=== PATIENT | female | born 1985 | race Caucasian/White ===

== ENCOUNTER 2022-06-15 14:42 | Emergency (ER) | payer SELFPAY ==
[2022-06-15 15:01] VITALS: BP 117/86; PULSE 82; RESP 16; TEMP 36.8; O2SAT 100
--- NOTE | 2022-06-15 15:08 | XR_ITS ---
WS: [id number] XR lumbar spine 2-3V* [id number] REASON FOR EXAM: back pain FINDINGS: Mild rotatory scoliosis convex left. Mild straightening of the normal lordosis of the lumbar spine. No focal vertebral body abnormality. Intervertebral disc spaces are relatively well-preserved. Minimal vertebral osteophyte formation L3-L5. No significant listhesis. No urinary tract calculi. XR/XR lumbar spine 2-3V* [id number] IMPRESSION: Mild changes of degenerative spondylosis. No urinary tract calculi.
--- NOTE | 2022-06-15 15:10 | ED_ITS ---
HPI - Back Pain/Injury General: Chief Complaint: Back Pain/Injury Stated Complaint: lower back pain Time Seen by Provider: 06/15/22 15:05 Source: patient Mode of arrival: ambulatory Limitations: no limitations History of Present Illness: 36-year-old female who states she been having low back pain for the last 3 to 4 days. States she been having sharp pain seemingly worse with standing and walking states improved with rest. She denies any dysuria states she has some slight radiation down her right leg denies any bowel or bladder incontinence denies any fever she rates her pain a 3 out of 10 curre ntly while sitting. Associated symptoms: Deny abdominal pain, chills, dysuria, fever(s), nausea or vomiting Review of Systems Const: Denies: fever(s), chills, body aches or change in appetite Eyes: Denies: blurry vision or eye discomfort ENMT: Denies: throat pain or dental pain Card: Denies: chest pain Resp: Denies: dyspnea GI: Denies: abdominal pain, nausea, vomiting or diarrhea : Denies: dysuria Musc: Reports: back pain Skin/Breast: Denies: rash Neuro: Denies: headache(s) Psych: Denies: depression Lake/Lymph: Denies: easy bruising All/Imm: Denies: urticaria PFSH ED PFSH: Medical History (Updated 06/15/22 @ 15:55 by Elly Gil MD) No pertinent past medical history Social History (Updated 06/15/22 @ 15:12 by Elly Gil MD) Substance/Drug Use: unknown Physical Exam Const: COMMON NORMALS: no acute distress, patient oriented x3 and healthy appearing HENMT: COMMON NORMALS: normocephalic and atraumatic HEAD & SCALP: normocephalic and atraumatic Eye: COMMON NORMALS: Equal, round and reactive pupils present and EOMs intact bilaterally PUPIL: Yes Equal, round and reactive pupils present Neck/C-Spine: COMMON NORMALS: full ROM and supple Chest: COMMONS NORMALS: normal inspection of the chest and normal palpation of entire chest wall Resp: COMMON NORMALS: normal respiratory effort, No retractions, No use of accessory muscles and clear to auscultation bilaterally AUSCULTATION: clear to auscultation bilaterally Cardio: COMMON NORMALS: regular rate, regular rhythm and No murmurs present (Cardio) RATE: regular rate RHYTHM: regular rhythm GI: COMMON NORMALS: Normal to inspection, nondistended, normoactive bowel sounds present, Soft to palpation, non-tender and no masses PALPATION: Yes Soft to palpation Back/Pelvis: OTHER: Paraspinal lumbar tenderness no midline tenderness. No saddle anesthesia no weakness Extremity: COMMON NORMALS: normal to inspection and full ROM Neuro: COMMON NORMALS: patient oriented x3, moves all extremities and no focal motor deficits Psych: COMMON NORMALS: mental status grossly normal, Normal thought process present and cooperative THOUGHT PROCESS: Normal thought process present Skin: COMMON NORMALS: no rashes or lesions noted and no wounds GENERAL SKIN EXAM: no rashes or lesions noted Course Vital Signs: Vital signs: Vital Signs Temperature 98.2 F 06/15/22 15:18 Pulse Rate 82 06/15/22 15:18 Respiratory Rate 16 06/15/22 15:18 Blood Pressure 117/86 06/15/22 15:18 Pulse Oximetry 100 06/15/22 15:18 Oxygen Delivery Me thod 06/15/22 15:18 MDM - Back Pain/Injury Medical Decision Making Patient presents here with back pain likely muscular in nature she has no signs of UTI x-ray is normal patient feels improved here she is stable for discharge we will place her on Naprosyn Robaxin she is to follow-up with her PCP and return if worsening she understands agrees to plan. Labs Radiology Impressions Lumbar Spine X-Ray 06/15/22 15:08 IMPRESSION: Mild changes of degenerative spondylosis. No urinary tract calculi. Laboratory Results Urine Color Yellow (Yellow) 06/15/22 15:15 Urine Appearance Clear (CLEAR) 06/15/22 15:15 Urine pH 6 (5-7) 06/15/22 15:15 Ur Specific [place] 1.005 (1.005-1.030) 06/15/22 15:15 Urine Protein Neg (Negative) 06/15/22 15:15 Urine Glucose (UA) Norm (Normal) 06/15/22 15:15 Urine Ketones Negative (Negative) 06/15/22 15:15 Urine Blood 2+ (Negative) H 06/15/22 15:15 Urine Nitrate Negative (Negative) 06/15/22 15:15 Urine Bilirubin Neg (Negative) 06/15/22 15:15 Urine Urobilinogen Norm mg/dL (Negative) 06/15/22 15:15 Ur Leukocyte Esterase Negative (Negative) 06/15/22 15:15 Urine RBC 0-4 /hpf (0-2) H 06/15/22 15:15 Urine WBC None /hpf (0-5) 06/15/22 15:15 Ur Squamous Epith Cells 5-10 /hpf (0-5) H 06/15/22 15:15 Amorphous Sediment Not Reportable 06/15/22 15:15 Urine Bacteria None /hpf (NONE) 06/15/22 15:15 Discharge Plan Discharge Patient Disposition: Home Clinical Impression: Low back pain Qualifiers: Chronicity: acute Back pain laterality: bilateral Sciatica presence: without sciatica Qualified Code(s): M54.50 - Low back pain, unspecified Prescriptions: New methocarbamol 750 mg tablet 750 mg PO Q6H PRN (Reason: spasms) Qty: 20 0RF Naprosyn 500 mg tablet 500 mg PO BID PRN (Reason: pain) Qty: 20 0RF Discharge Orders: Discharge ED (Routine); Ordered 06/15/22 Ordered By: Elly Gil Discharge Diet: Advance as tolerated Discharge Activity: Resume usual activity Patient Instructions: Acute Low Back Pain (ED) Coding Level of Care Code ED Software Licensing Executive for Joey Fwd Exam Comprehensive
[2022-06-15 15:18] VITALS: BP 117/86; PULSE 82; RESP 16; TEMP 36.8; O2SAT 100
[2022-06-15] MEDS: dexamethasone 10 mg/mL INJ IM (15:30)
[2022-06-15] MEDS: ketorolac 60 mg/2 mL INJ IM (15:31)
[2022-06-15 15:52] LABS: Specific Gravity, Urine 1.005 (1.005-1.030); Urine Appearance Clear (CLEAR); Urine Color Yellow (Yellow); pH Urine 6 (5-7)
[2022-06-15 15:53] LABS: Add Urine Culture? No; Add Urine Microscopic? YES; Bilirubin Urine Neg (Negative); Blood Urine 2+ (Negative); Glucose Urine UA Norm (Normal); Ketones Urine Negative (Negative); Leukocyte Esterase Urine Negative (Negative); Nitrate Urine Negative (Negative); Protein Urine Neg (Negative); RBC Urine 0-4 /hpf (0-2); Urobilinogen Urine Norm (Negative)
== END 2022-06-15 16:00 | disposition home or self-care (01) ==
PROVIDERS: Emergency Provider Emergency Medicine
DX: M54.50 Low back pain, unspecified (principal)
CPT/HCPCS: 72100; 81001; 96372; 99284; J1100; J1885

== ENCOUNTER 2022-09-07 19:05 | Emergency (ER) | payer MEDICAID, SELFPAY ==
--- NOTE | 2022-09-07 19:17 | USR_ITS ---
PROCEDURE INFORMATION: Exam: US Duplex Right Lower Extremity Veins, Limited Exam date and time: 09/07/2022 7:32 PM Age: 37 years old Clinical indication: Leg, upper and leg, lower; Patient HX: Chronic right posterior calf pain x 2 months, which is shooting pain up into the thigh. No history of dvt per patient. ; Additional info: Leg swelling TECHNIQUE: Imaging protocol: Real-time Duplex ultrasound of the Right Lower Extremity with 2-D cohen scale, color Doppler flow and spectral waveform analysis with image documentation. Limited exam was focused on the right lower extremity veins. COMPARISON: No relevant prior studies available. FINDINGS: Right deep veins: Unremarkable. The common femoral, femoral, proximal profunda femoral and popliteal veins are patent without thrombus. Normal Doppler waveforms. Normal compressibility and/or augmentation response. Right superficial veins: Unremarkable. Saphenofemoral junction is patent without thrombus. Soft tissues: Unremarkable. US/[place] [id number] IMPRESSION: No evidence of deep vein thrombosis.
[2022-09-07 19:30] VITALS: BP 109/74; PULSE 112; RESP 18; TEMP 36.7; O2SAT 98; BMI 24.7
[2022-09-07 20:57] LABS: Basophils # 0.1 10^3/uL (0.0-0.1); Basophils % 0.5 %; Eosinophils # 0.1 10^3/uL (0.0-0.8); Eosinophils % 1.4 %; Hematocrit 38.8 % (37.0-47.0); Hemoglobin 12.3 g/dL (11.5-15.3); Lymphocytes # 2.9 10^3/uL (0.8-4.8); Lymphocytes % 29.1 %; Mean Corpuscular HGB Conc 31.7 g/dL (30.0-36.0); Mean Corpuscular Hemoglobin 30.8 pg (28.0-34.0); Mean Corpuscular Volume 97.2 fl (81-99); Mean Platelet Volume 10.7 fL (7.4-10.4); Monocytes # 0.9 10^3/uL (0.2-0.9); Monocytes % 8.7 %; Neutrophils # 5.88 10^3/uL (1.8-7.7); Nucleated Red Blood Cells % 0 %; Platelet Count 195 10^3/cmm (130-400); Red Blood Count 3.99 10^6/uL (4.1-5.3); Red Cell Distribution Width 13.2 % (12.1-15.1); White Blood Count 9.8 10^3/uL (4.0-10.0)
[2022-09-07] MEDS: cyclobenzaprine 10 mg Tablet PO (21:32)
[2022-09-07] MEDS: ketorolac 60 mg/2 mL INJ IM (21:32)
--- NOTE | 2022-09-07 21:32 | W.ED.EXTPRO ---
HPI - Extremity Problem General: Chief complaint: Extremity Injury, Lower Stated complaint: Right leg Swollen sent by PCP Time Seen by Provider: 09/07/22 20:47 History of Present Illness: Patient is in today for concerns of right lower extremity pain. She reports it starts mid calf and is goes all the way up into her right buttocks. She reports has been ongoing for couple of months but definitely worse over the past 2 weeks. She reports that her primary care provider is concerned about a blood clot and sent her to the emergency room today. She denies any injury to the area. She states that it is worse with prolonged standing or sitting.She denies any fever, chills. She denies any possibility of stating that she has already had a tubal ligation. She denies any shortness of breath or chest pain. Associated symptoms: Deny chest pain or fever(s) Review of Systems Const: Denies: fever(s) or chills Card: Denies: chest pain or palpitations Resp: Denies: dyspnea Musc: Reports: other (Right lower extremity pain from buttocks to mid calf) [facility] ED PFSH: Medical History No pertinent past medical history Female Reproductive History: Date of last menstrual period: 09/06/22 Physical Exam Const: COMMON NORMALS: no acute distress, patient oriented x3 and alert Resp: COMMON NORMALS: normal respiratory effort and No use of accessory muscles Extremity: NARRATIVE EXTREMITY EXAM: Patient reports right lower extremity pain. Steady gait is noted. There is no obvious swelling, redness, soft tissue deformity to the right lower extremity. There is tenderness to palpation to the calf the posterior thigh and the buttocks. Palpation in the sciatic region of the right buttocks reproduces pain complaint and worsens the pain all the way down the leg. Patient has full range of motion. Homans' sign is positive. Pedal pulses palpable. Extremity is warm and dry. Neuro: COMMON NORMALS: patient oriented x3 SENSORIUM/ORIENTATION: Yes alert Course Vital Signs: Vital signs: Vital Signs Temperature 98.1 F 09/07/22 19:30 Pulse Rate 112 H 09/07/22 19:30 Respiratory Rate 18 09/07/22 19:30 Blood Pressure 109/74 09/07/22 19:30 Pulse Oximetry 98 09/07/22 19:30 Oxygen Delivery Me thod 09/07/22 19:30 MDM - Extremity (Nontraumatic) Medical Decision Making Patient in today to be evaluated for possible DVT right lower extremity pain ongoing for a couple of months worsening over the past 2 weeks. Patient reports a burning type pain radiating from her right buttocks all the way down to her mid calf. Differentials include sciatica, radiculopathy lumbar, DVT. Ultrasound lower extremity negative for evidence of DVT. Physical exam is consistent with sciatica. Palpation of the sciatic region and right buttocks reproduces pain complaint. Patient is in no acute distress, denies any saddle anesthesia, denies any loss of bowel or bladder control, strength is equal bilateral lower extremities, white blood cell count does not indicate major infection. We will treat patient conservatively for sciatica. Toradol and Flexeril provided in ER tonight. Send patient home with outpatient prescription for Flexeril. Educated patient about possible benefits and side effects of that medication. Discussed conservative treatments for sciatica at home including warm moist heat, gentle stretches. Follow-up with primary care provider. Return to the ER as needed for new or worsening symptoms. Lab Data : 09/07/22 20:53 Radiology Impressions Venous Duplex 09/07/22 19:17 IMPRESSION: No evidence of deep vein thrombosis. Laboratory Results WBC 9.8 10^3/uL (4.0-10.0) 09/07/22 20:53 RBC 3.99 10^6/uL (4.1-5.3) L 09/07/22 20:53 Hgb 12.3 g/dL (11.5-15.3) 09/07/22 20:53 Hct 38.8 % (37.0-47.0) 09/07/22 20:53 MCV 97.2 fl (81-99) 09/07/22 20:53 MCH 30.8 pg (28.0-34.0) 09/07/22 20:53 MCHC 31.7 g/dL (30.0-36.0) 09/07/22 20:53 RDW 13.2 % (12.1-15.1) 09/07/22 20:53 Plt Count 195 10^3/cmm (130-400) 09/07/22 20:53 MPV 10.7 fL (7.4-10.4) H 09/07/22 20:53 Neut % (Auto) 60.0 % 09/07/22 20:53 Lymph % (Auto) 29.1 % 09/07/22 20:53 [place] % (Auto) 8.7 % 09/07/22 20:53 Eos % (Auto) 1.4 % 09/07/22 20:53 Baso % (Auto) 0.5 % 09/07/22 20:53 Neut # (Auto) 5.88 10^3/uL (1.8-7.7) 09/07/22 20:53 Lymph # (Auto) 2.9 10^3/uL (0.8-4.8) 09/07/22 20:53 [place] # (Auto) 0.9 10^3/uL (0.2-0.9) 09/07/22 20:53 Eos # (Auto) 0.1 10^3/uL (0.0-0.8) 09/07/22 20:53 Baso # (Auto) 0.1 10^3/uL (0.0-0.1) 09/07/22 20:53 Nucleated RBC % (auto) 0 % 09/07/22 20:53 Nucleated RBCs # 0.0 /100WBC 09/07/22 20:53 Discharge Plan Discharge Patient Disposition: Home Clinical Impression: Sciatica of right side Condition: Stable Prescriptions: New cyclobenzaprine 10 mg tablet 10 mg PO TID PRN (Reason: muscle spasm) Qty: 10 0RF No Action sulfamethoxazole-trimethoprim [Bactrim DS] 800-160 mg tablet 1 tab PO Q12H 7 Days Qty: 14 0RF Discharge Orders: Discharge ED (Routine); Ordered 09/07/22 Ordered By: Nishi Trinidad Discharge Diet: Usual diet Discharge Activity: Increase activity as tolerated Patient Instructions: Cyclobenzaprine (By mouth) (Flexeril, Amrix, Fexmid, FusePaq Tabradol), Sciatica (ED) Activity Restrictions/Additional Instructions: Take medications as prescribed. You already received a dose of Flexeril tonight. Do not take any other medications or substances that make you sleepy while taking the muscle relaxant. Do not drive after taking Flexeril muscle relaxant. Alternate warm moist compresses and ice on the area. Gentle stretching. Follow-up with primary care provider. Return to the ER as needed for any new or worsening symptom including but not limited to increasing pain, numbness in the groin, loss of bowel or bladder control, fever, weakness. Coding Level of Care Code ED Family Assessment Worker for Joey Gay
== END 2022-09-07 21:39 | disposition home or self-care (01) ==
PROVIDERS: Emergency Medicine; Emergency Provider Nurse Practitioner Family; PCP Nurse Practitioner
DX: M54.31 Sciatica, right side (principal)
CPT/HCPCS: 85025; 93971; 96372; 99284; J1885

== ENCOUNTER 2022-11-13 08:43 | Outpatient (CLI) | payer MEDICAID, SELFPAY ==
--- NOTE | 2022-11-13 08:55 | MR_ITS ---
WS: [id number] MRI LUMBAR SPINE NONCONTRAST TECHNIQUE: Sagittal T1, T2 and STIR imaging. Axial T1 and T2 imaging. CLINICAL INFORMATION: BACK PAIN COMPARISON: None. FINDINGS: Mild lumbar curve. No acute compression. Disc bulging worse at L3-L4 L4-L5 and L5-S1. Slight anteroli sthesis L2 on L3. Slight retrolisthesis L5 on S1. Small annular fissure L4-L5. L1-L2: Normal. L2-L3: Mild disc bulging with mild to moderate central canal stenosis. Moderate facet arthropathy lig amentum flavum hypertrophy. Impingement on the traversing L3 nerve roots bilaterally. Foramen are pat ent. L3-L4: Small LEFT subarticular protrusion impinges the traversing LEFT L4 nerve root in the subarticu lar recess. Mild to moderate central canal stenosis. Moderate facet arthropathy ligamentum flavum hyp ertrophy. Mild LEFT foraminal narrowing. L4-L5: Broad-based central disc protrusion with a small annular fissure. Moderate central canal steno sis and impingement traversing L5 nerve roots. This is worse in the LEFT. Mild LEFT foraminal narrowi ng. Moderate facet arthropathy. L5-S1: RIGHT subarticular disc extrusion with slight inferior migration of disc material. This imping es the traversing RIGHT S1 nerve root. Moderate central canal stenosis. Moderate bilateral foraminal narrowing. Moderate facet arthropathy with small facet effusions compatible with synovitis. Slight re trolisthesis L5 on S1. Mild degenerative endplate edema at L5-S1. Visualized pelvic bony structures: Normal. Paravertebral soft tissues: Normal. MR/MR lumbar spine wo con* [id number] IMPRESSION: 1. Mild lumbar curve. No acute compression. 2. Moderate central canal stenosis L4-L5 and L5-S1. 3. Mild to moderate central canal stenosis L2-L3 L3-L4. 4. RIGHT pericentral disc extrusion L5-S1 impinges the traversing RIGHT S1 ner ve root. Slight inferior migration of disc material. Moderate central canal dc nosis. 5. Central protrusion L4-L5 with a small annular fissure impinges the traversi ng L5 nerve roots bilaterally LEFT greater than RIGHT. Moderate central canal s tenosis. 6. LEFT subarticular protrusion L3-L4 extending into the proximal LEFT neural foramen. Impingement on the traversing LEFT L4 nerve root with mild LEFT forami nal narrowing. 7. Disc bulging L2-L3 impinges the traversing L3 nerve roots bilaterally with mild to moderate central canal stenosis. 8. Moderate facet arthropathy L5-S1 with bilateral facet effusions. Slight ret rolisthesis at this level.
== END 2022-11-13 08:44 | disposition home or self-care (01) ==
PROVIDERS: PCP Nurse Practitioner; Visit Provider Nurse Practitioner
DX: M54.16 Radiculopathy, lumbar region (principal); R93.89 Abnormal findings on diagnostic imaging of other specified body structures
CPT/HCPCS: 72148

== ENCOUNTER → 2023-03-01 09:07 | Outpatient (BNVA) | payer MEDICAID, SELFPAY | PROVIDERS: PCP Nurse Practitioner; Visit Provider Anesthesiology Pain Medicine | DX: M51.16 Intervertebral disc disorders with radiculopathy, lumbar region (principal); M47.816 Spondylosis without myelopathy or radiculopathy, lumbar region | CPT/HCPCS: 99204 ==

== ENCOUNTER → 2023-03-27 13:54 | Outpatient (BNVA) | payer MEDICAID, SELFPAY | PROVIDERS: PCP Nurse Practitioner; Visit Provider Anesthesiology Pain Medicine | DX: M54.16 Radiculopathy, lumbar region (principal) | CPT/HCPCS: 64483; 64484; J1100; J3490 ==

== ENCOUNTER 2023-06-17 16:27 | Emergency (ER) | payer MEDICAID, SELFPAY ==
[2023-06-17 16:35] VITALS: BP 125/81; PULSE 110; RESP 16; O2SAT 97
--- NOTE | 2023-06-17 16:41 | XRR_ITS ---
PROCEDURE INFORMATION: Exam: XR Left Hand Exam date and time: 06/17/2023 4:52 PM Age: 37 years old Clinical indication: Pain; Hand; Left; Additional info: Injury TECHNIQUE: Imaging protocol: Radiologic exam of the left hand. Views: 3 or more views. COMPARISON: No relevant prior studies available. FINDINGS: Bones/joints: There appears to be dislocation at the left 2nd carpometacarpal joint. Soft tissues: Normal. XR/XR hand LT min 3V* [id number] IMPRESSION: There appears to be dislocation at the left 2nd carpometacarpal joint. Clinical correlation is advised.
--- NOTE | 2023-06-17 16:41 | W.ED.WOUNDLC ---
HPI - Wound/Laceration General: Chief Complaint: Wound/Laceration Stated Complaint: Left hand lac Time Seen by Provider: 06/17/23 16:39 Source: patient Mode of arrival: ambulatory Limitations: no limitations History of Present Illness: 37-year-old female states that she had fell on a yane wire fence this morning around 6 AM she has a laceration to the palm of her left hand roughly 4 cm. She does have some pain she rates a 2 out of 10 denies any other injuries denies hitting her head she is unsure when her last tetanus was Associated symptoms: Denies chills, fever(s), nausea or vomiting Review of Systems Const: Denies: fever(s) or chills ENMT: Denies: throat pain or dental pain Card: Denies: chest pain Resp: Denies: dyspnea GI: Denies: abdominal pain, nausea, vomiting or diarrhea Musc: Reports: extremity pain; Denies: neck pain or back pain Skin/Breast: Denies: rash Neuro: Denies: headache(s) PFSH ED PFSH: Medical History No pertinent past medical history Social History Smoking and tobacco status: current every day smoker Second hand smoke exposure: No Smoking risk assessment/counseling performed?: Yes Alcohol intake: current Desire information about alcohol rehabilitation?: No Counseling given: No Substance/Drug Use: current Substance/Drug use frequency: few times a week Desire information about substance/drug rehabilitation?: No Counseling given: No Physical Exam Const: COMMON NORMALS: no acute distress and patient oriented x3 HENMT: COMMON NORMALS: normocephalic and atraumatic HEAD & SCALP: normocephalic and atraumatic Eye: COMMON NORMALS: conjunctivae normal CONJUNCTIVA: Yes conjunctivae normal Chest: COMMONS NORMALS: normal inspection of the chest Resp: COMMON NORMALS: normal respiratory effort GI: INSPECTION: Yes normal to inspection Extremity: NARRATIVE EXTREMITY EXAM: 4 cm laceration palm of left hand she has full range of motion to all her fingers sensations intact Neuro: COMMON NORMALS: patient oriented x3 Psych: COMMON NORMALS: mental status grossly normal Skin: COMMON NORMALS: no rashes or lesions noted GENERAL SKIN EXAM: no rashes or lesions noted Procedures Laceration Laceration 1: Site: hand Side (If applicable): left Size (cm): 4 Description: linear Depth: simple, single layer, involves muscle layer and involves tendon Local Anesthetic: lidocaine 1% Amount of anesthesia used (mL): 6 Pre-repair: wound explored, irrigated extensively and deep structures intact Skin layer closed with: nylon Size (cm): 5-0 Number of sutures: 4 Technique: simple, interrupted Course Vital Signs: Vital signs: Vital Signs Pulse Rate 110 H 06/17/23 16:35 Respiratory Rate 16 06/17/23 16:35 Blood Pressure 125/81 06/17/23 16:35 Pulse Oximetry 97 06/17/23 16:35 Oxygen Delivery Me thod Room Air 06/17/23 16:35 MDM - Wound/Laceration Medical Decision Making Patient presents here with a laceration to her left hand did repair it we will place her on prophylactic antibiotics did clean the wound thoroughly here she is to return in a week for suture removal Discharge Plan Discharge Patient Disposition: Home Clinical Impression: Laceration Condition: Stable Prescriptions: New cephalexin 500 mg capsule 500 mg PO TID 7 Days Qty: 21 0RF No Action sulfamethoxazole-trimethoprim [Bactrim DS] 800-160 mg tablet 1 tab PO Q12H 7 Days Qty: 14 0RF cyclobenzaprine 10 mg tablet 10 mg PO TID PRN (Reason: muscle spasm) Qty: 10 0RF Discharge Orders: Discharge ED (Routine); Ordered 06/17/23 Ordered By: Elly Gil Referrals: Tommy Villalobos ADVANCED PRACTICE PROVIDER [Primary Care Provider] - Discharge Diet: Advance as tolerated Discharge Activity: Resume usual activity Patient Instructions: Care For Your Stitches (ED) Activity Restrictions/Additional Instructions: suture removal in 7 days Coding Level of Care Code ED Research Electrician for Joey Gay
[2023-06-17] MEDS: tetanus-dipt-pertussis 0.5 mL SDV IM (17:00)
[2023-06-17] MEDS: lidocaine 1% INJ 10 mL (per mL) INJECTION (17:02)
== END 2023-06-17 17:18 | disposition home or self-care (01) ==
PROVIDERS: Emergency Provider Emergency Medicine; PCP Nurse Practitioner
DX: S61.412A Laceration without foreign body of left hand, initial encounter (principal); F17.210 Nicotine dependence, cigarettes, uncomplicated; W18.39XA Other fall on same level, initial encounter; Z23 Encounter for immunization
CPT/HCPCS: 12002; 73130; 90471; 90715; 99283

== ENCOUNTER → 2023-09-11 10:20 | Outpatient (BNVA) | payer MEDICAID, SELFPAY | PROVIDERS: PCP Nurse Practitioner; Visit Provider Physician Assistant | DX: M51.17 Intervertebral disc disorders with radiculopathy, lumbosacral region (principal); M46.1 Sacroiliitis, not elsewhere classified; M47.817 Spondylosis without myelopathy or radiculopathy, lumbosacral region; M43.16 Spondylolisthesis, lumbar region; M51.27 Other intervertebral disc displacement, lumbosacral region; M48.061 Spinal stenosis, lumbar region without neurogenic claudication | CPT/HCPCS: 72110; 99203 ==

== ENCOUNTER 2023-09-18 13:32 | Outpatient (CLI) | payer MEDICAID, SELFPAY ==
[2023-09-18 14:07] LABS: Basophils % 0.4 %; Eosinophils # 0.1 10^3/uL (0.0-0.8); Eosinophils % 1.4 %; Hematocrit 40.2 % (36-47); Lymphocytes % 25.5 %; Mean Corpuscular HGB Conc 32.8 g/dL (30-55); Mean Corpuscular Hemoglobin 31.4 pg (27-33); Mean Corpuscular Volume 95.5 fl (85-98); Mean Platelet Volume 10.7 fL (7.4-10.4); Monocytes # 0.6 10^3/uL (0.2-0.9); Monocytes % 8.1 %; Neutrophils # 4.92 10^3/uL (1.8-7.7); Neutrophils % 64.3 %; Nucleated Red Blood Cells % 0 %; Platelet Count 191 10^3/cmm (157-399); Red Blood Count 4.21 10^6/uL (3.85-5.65); Red Cell Distribution Width 12.9 % (12.1-15.1); White Blood Count 7.65 10^3/uL (3.29-11.43)
[2023-09-18 14:28] LABS: Alanine Aminotransferase 7 U/L (0-33); Alkaline Phosphatase 93 U/L (35-105); Anion Gap 11.7 (5-19); Aspartate Amino Transferase 19 U/L (0-32); Blood Urea Nitrogen 12 mg/dL (6-20); Calcium 8.7 mg/dL (8.5-10.5); Carbon Dioxide 25 mmol/L (22-29); Chloride 105 mmol/L (98-107); Glomerular Filtration Rate 93.2 mL/min (90-130); Glucose 95 mg/dL (65-115); Osmolality Calculated 286 mOsm/kg (285-295); Potassium 3.7 mmol/L (3.5-5.1); Sodium 138 mmol/L (136-145); Total Bilirubin 0.2 mg/dL (0.15-1.2)
[2023-09-18 15:10] LABS: Urine Appearance Hazy (CLEAR); Urine Color Yellow (Yellow); pH Urine 6.5 (5-7)
[2023-09-18 15:11] LABS: Add Urine Microscopic? YES; Bilirubin Urine Neg (Negative); Blood Urine 2+ (Negative); Glucose Urine UA Norm (Normal); Ketones Urine Negative (Negative); Leukocyte Esterase Urine 1+ (Negative); Nitrate Urine Negative (Negative); Protein Urine Neg (Negative); Specific Gravity, Urine 1.015 (1.005-1.030); Urobilinogen Urine 1 mg/dL (Negative)
[2023-09-18 15:19] LABS: Bacteria Urine 1+ /hpf; Mucus Urine TRACE /hpf; Transitional Epi Cells Urine RARE /hpf; WBC Urine 15-25 /hpf (0-5)
[2023-09-18 15:20] LABS: Add Urine Culture? Yes
== END 2023-09-18 13:33 | disposition home or self-care (01) ==
PROVIDERS: PCP Nurse Practitioner; Visit Provider Physician Assistant
DX: M48.061 Spinal stenosis, lumbar region without neurogenic claudication (principal)
CPT/HCPCS: 36415; 80053; 81001; 85025; 87077; 87086; 87186

== ENCOUNTER → 2023-09-24 12:22 | Outpatient (BNVA) | payer MEDICAID, SELFPAY | PROVIDERS: PCP Nurse Practitioner; Visit Provider Family Medicine | DX: Z01.818 Encounter for other preprocedural examination (principal) | CPT/HCPCS: 87086 ==

== ENCOUNTER 2023-09-26 05:57 | Day surgery (SDC) | payer MEDICAID, SELFPAY ==
[2023-09-26] VITALS (10 sets, daily range): BP systolic 109–144; BP diastolic 58–97; PULSE 68–98; RESP 16; TEMP 36.2–36.9; O2SAT 97–100; BMI 29.2
[2023-09-26] MEDS: sodium chloride 0.9% 1,000 ML 30 ML IV (06:28)
--- NOTE | 2023-09-26 06:28 | P.HPUD_ITS ---
Surgery/Procedure H&P Update DATE OF PROCEDURE: September 26, 2023 DATE H&P PERFORMED: 09/20/23 H&P UPDATE INFORMATION: I have reviewed H&P completed within last 30 days, I have examined patient prior to procedure and No changes to prior documentation PLANNED PROCEDURE: Operation Date: 09/26/23 07:00 Proposed Procedures p Lumbar Spine Decompression Lumbar Decompression:L4-5 and L5-S1 with micro disc ectomy to the right at L5-S1(Right) - Branden Nolasco DO
[2023-09-26] MEDS: HYDROmorphone 1 mg/mL INJ 1 mL 0.5 MG IVP ×3 (06:53→09:25)
[2023-09-26 07:00] LABS: OR HCG Qualitative Urine Negative (Negative)
[2023-09-26] MEDS: ceFAZolin 2,000 MG in sodium chloride 0.9% (plus) 50 ML 100 MG IV (07:01)
[2023-09-26] MEDS: lidocaine-epi 1% 20 mL INJ INJECTION (07:47)
[2023-09-26] MEDS: vancomycin 1,000 MG SDV 1000 MG IRRIGATION (07:48)
--- NOTE | 2023-09-26 07:51 | ANES.PREANE2 ---
Pre-Anesthetic Assessment Height/Weight: Height 1.52 m Weight 68.039 kg Temp Pulse Resp BP Pulse Ox O2 Del Method 98.5 F 98 16 144/97 99 Room Air 09/26/23 06:15 09/26/23 06:15 09/26/23 06:15 09/26/23 06:15 09/26/23 06:15 09/26/23 06:15 Operation Date: 09/26/23 07:00 Proposed Procedures p Lumbar Spine Decompression Lumbar Decompression:L4-5 and L5-S1 with micro discectomy to the right at L5-S1(Right) - Branden Nolasco, Familial anesthetic complications: none Was Beta Jacqueline taken within 24 hours: N/A Was Clonidine taken within 24 hours: N/A Last intake: Intake Last Liquid Date 09/25/23 Last Liquid Time 20:00 Last Solid Date 09/24/23 Last Solid Time 00:00 Social Tobacco and No alcohol Exam alert, oriented x 3 and regular rate & rhythm Airway Submandibular: within normal limits Cervical ROM: within normal limits Mallampati: Class II Dentition: false Pulmonary Chronic Obstructive Pulmonary Disease Musc/skel Lower Back Pain and Osteoarthritis/DJD Neuropsych Seizure Anesthetic Plan ASA status: 3 Anesthesia: General Medications/Allergies Home Medications Medication Instructions Recorded Confirmed Last Taken Type cyclobenzaprine 10 mg tablet 10 mg PO TID PRN muscle spasm #10 09/07/22 09/26/23 09/25/23 Rx tabs sulfamethoxazole 800 1 tab PO Q12H 7 days #14 tabs 09/19/23 09/26/23 09/25/23 Rx mg-trimethoprim 160 mg tablet (Bactrim DS) gabapentin 300 mg tablet 300 mg PO BEDTIME n 09/25/23 09/26/23 09/25/23 History Allergies Allergy/AdvReac Type Severity Reaction Status Date / Time divalproex sodium Allergy Unconscious Verified 09/20/23 09:38 [From Depakote] Current Medications Generic Name Dose Route Start Last Admin Trade Name Freq PRN Reason Stop Dose Admin Hydromorphone HCl 0.5 mg 09/26/23 05:59 09/26/23 06:53 Hydromorphone 1 Mg/Ml Inj 1 Ml IVP 0.5 mg ONCE PRN Administration For preop pain/anxiety Sodium Chloride 1,000 mls @ 30 mls/hr 09/26/23 06:00 09/26/23 06:28 Sodium Chloride 0.9% IV 09/27/23 05:59 30 mls/hr .Q24H RITO Administration Vancomycin HCl 1,000 mg 09/26/23 07:47 09/26/23 07:48 Vancomycin 1,000 Mg Sdv IRRIGATION 09/26/23 07:48 1,000 mg ONCE ONE Administration Protocol PFS Anesthesia Medical History No pertinent past medical history Social History Smoking and tobacco/nicotine status: current every day tobacco/nicotine user Second hand smoke exposure: No Alcohol intake: current Substance/Drug Use: current Substance/Drug use frequency: few times a week Female Reproductive History Date of last menstrual period: 09/23/23 Data Anesthesia Cardiac Studies: No Data to Display
[2023-09-26] MEDS: fentaNYL 50 mcg/mL INJ 2mL IVP (08:40)
--- NOTE | 2023-09-26 08:40 | XR_ITS ---
WS: [id number] INTRAOPERATIVE TECHNIQUE: 3 Spot fluoroscopic images for intraoperative purposes. FLUOROSCOPY TIME: 27.2 seconds CLINICAL INFORMATION: OR PICS COMPARISON: None. FINDINGS: Localization marker projected over RIGHT L5 and RIGHT L4-5 dorsally. IMPRESSION: Images obtained for intraoperative purposes. Spine.
--- NOTE | 2023-09-26 08:51 | PM.OP ---
Operative Report Date of procedure: September 26, 2023 Pre-op diagnosis: Lumbar stenosis with neurogenic claudication Post-op diagnosis: same Procedure done: 1. L4-5 laminectomy with partial facetectomy 2. L5-S1 laminectomy with partial facetectomy and discectomy Surgeon: Branden Nolasco DO Creative Art Director: Howard Faustin Creative Art Director: The certified surgical tech/first assistant, Howard Faustin, PAC was needed for his expertise under the microscope. He was important and necessary throughout the procedure to complete in a safe and timely manner. He assisted with patient positioning prepping and draping tissue retraction suctioning of the operative field protection of the dural sac and tissue closure Estimated blood loss (mL): 20 Procedure: 1. L4-5 laminectomy with partial facetectomy 2. L5-S1 laminectomy with partial facetectomy and discectomy Patient is brought to the operative suite. After undergoing anesthesia they are placed in the prone position. All areas of impingement are well padded. Patient is then prepped and draped in the normal sterile fashion. A skin incision is made over the L4/5 level. This is confirmed under c-arm guidance. A series of dilators are passed and the tubular retractor is docked on the L4 lamina. A bovie is used to clear the soft tissue off the lamina and the L 4/5 facet joint. A high speed thony is then used to perform the laminectomy and take down the medial aspect of the L 4/5 facet joint. A kerrison rongeure was then used to take down the remaining lamina and smooth the edge of the laminectomy up to the point where the ligamentum flavum attaches. Attention was then brought to the medial aspect of the facet joint. The remaining medial aspect of the superior and inferior aspect of the facet joint were taken down with the kerrison from the pedicle of L4 to L 5. The facet joint had significant hypertrophy. Attention was then brought to the Ligamentum Flavum. The ligament was taken down from the lamina of L4 to L5 and out medially to the remaining facet joint. The ligament was thick. The dura was then exposed. The dura was in good repair. The L4 nerve was then traced with a curette out the L4/5 foramen and found to be adequately decompressed. The L5 nerve was traced with a curette around the L5 pedicle. The lateral recess was opened with a kerrison helping to further decompress the L5 nerve. Wound is then irrigated copiously with saline and surgiflo is used to stop any bleeding. The tubular retractor is removed and the A skin incision is made over the L5/S1 level. This is confirmed under c-arm guidance. A series of dilators are passed and the tubular retractor is docked on the L5 lamina. A bovie is used to clear the soft tissue off the lamina and the L 5/S1 facet joint. A high speed thony is then used to perform the laminectomy and take down the medial aspect of the L 5/S1 facet joint. A kerrison rongeure was then used to take down the remaining lamina and smooth the edge of the laminectomy up to the point where the ligamentum flavum attaches. Attention was then brought to the medial aspect of the facet joint. The remaining medial aspect of the superior and inferior aspect of the facet joint were taken down with the kerrison from the pedicle of L5 to S1. The facet joint had significant hypertrophy. Attention was then brought to the Ligamentum Flavum. The ligament was taken down from the lamina of L5 to S1 and out medially to the remaining facet joint. The ligament was thick. The dura was then exposed. The dura was in good repair. The L5 nerve was then traced with a curette out the L5/s1 foramen and found to be adequately decompressed. The S1 nerve was traced with a curette around the S1 pedicle. The lateral recess was opened with a kerrison helping to further decompress the S1 nerve. Wound is then irrigated copiously with saline and surgiflo is used to stop any bleeding. The tubular retractor is removed and the wound is closed with vicryl and monocryl suture. Glue is then used to protect the wound. A sterile dressing is then placed. Patient was then placed in the supine position and transferred to the PACU in stable condition.
[2023-09-26] MEDS: HYDROcodone-acetaminophen 5-325 mg Tablet 2 TAB PO (09:36)
--- NOTE | 2023-09-26 09:51 | ANE.PACU2 ---
Inpatient post-anesthesia follow up: Airway intact: Yes Vital signs: Temperature 97.1 F Pulse Rate 98 Respiratory Rate 16 Blood Pressure 144/97 Pulse Oximetry 99 Oxygen Delivery Me thod Room Air Oxygen Flow Rate 8 Fraction of Inspir ed Oxygen Hydration adequate: Yes Nausea and vomiting: No Pain level: 4 Mental status: Baseline
== END 2023-09-26 10:00 | disposition home or self-care (01) ==
PROVIDERS: Anesthesiology; PCP Nurse Practitioner; Visit Provider Orthopaedic Surgery
PROC: (CPT 63005; principal; 2023-09-26 07:00)
DX: M48.062 Spinal stenosis, lumbar region with neurogenic claudication (principal); J44.9 Chronic obstructive pulmonary disease, unspecified; F17.200 Nicotine dependence, unspecified, uncomplicated
CPT/HCPCS: 63047; 63048; 72100; 76000; 81025; 84703; J0690; J1100; J1170; J2405; J2704; J2710; J3010; J3370; J3490; J7030

== ENCOUNTER → 2023-10-09 10:11 | Outpatient (BNVA) | payer MEDICAID, SELFPAY | PROVIDERS: PCP Nurse Practitioner; Visit Provider Orthopaedic Surgery | DX: Z47.89 Encounter for other orthopedic aftercare (principal) | CPT/HCPCS: 99024 ==

== ENCOUNTER → 2023-11-06 13:02 | Outpatient (BNVA) | payer MEDICAID, SELFPAY | PROVIDERS: PCP Nurse Practitioner; Visit Provider Physician Assistant | DX: Z47.89 Encounter for other orthopedic aftercare (principal) | CPT/HCPCS: 99024; 99212 ==

== ENCOUNTER 2023-11-20 16:41 | Emergency (ER) | payer MEDICAID, SELFPAY ==
[2023-11-20 17:10] VITALS: BP 140/84; PULSE 98; RESP 14; TEMP 36.7; O2SAT 100; BMI 27.4
--- NOTE | 2023-11-20 17:17 | XRR_ITS ---
PROCEDURE INFORMATION: Exam: XR Chest Exam date and time: 11/20/2023 5:23 PM Age: 38 years old Clinical indication: Cough and fever TECHNIQUE: Imaging protocol: Radiologic exam of the chest. Views: 1 view. COMPARISON: No relevant prior studies available. FINDINGS: Lungs: Unremarkable. No consolidation. Pleural spaces: Unremarkable. No pleural effusion. No pneumothorax. Heart/Mediastinum: Unremarkable. No cardiomegaly. Bones/joints: Unremarkable. XR/XR chest 1V portable [id number] IMPRESSION: No acute findings.
== END 2023-11-20 19:29 | disposition left against medical advice (07) ==
PROVIDERS: Emergency Provider Family Medicine; PCP Nurse Practitioner
DX: Z53.21 Procedure and treatment not carried out due to patient leaving prior to being seen by health care provider (principal)
CPT/HCPCS: 71045

== ENCOUNTER → 2023-12-11 08:58 | Outpatient (BNVA) | payer MEDICAID, SELFPAY | PROVIDERS: PCP Nurse Practitioner; Visit Provider Orthopaedic Surgery | DX: Z47.89 Encounter for other orthopedic aftercare (principal) | CPT/HCPCS: 99024; 99212 ==

== ENCOUNTER → 2024-04-17 08:15 | Outpatient (BNVA) | payer MEDICAID, SELFPAY | PROVIDERS: PCP Nurse Practitioner; Visit Provider Orthopaedic Surgery | DX: M54.9 Dorsalgia, unspecified (principal); Z98.890 Other specified postprocedural states | CPT/HCPCS: 99213 ==

== ENCOUNTER → 2024-07-22 14:51 | Outpatient (BNVA) | payer MEDICAID, SELFPAY | PROVIDERS: PCP Nurse Practitioner; Visit Provider Orthopaedic Surgery | DX: M51.16 Intervertebral disc disorders with radiculopathy, lumbar region (principal); M47.816 Spondylosis without myelopathy or radiculopathy, lumbar region; M51.27 Other intervertebral disc displacement, lumbosacral region | CPT/HCPCS: 72110; 99214 ==

== ENCOUNTER 2024-08-06 17:20 | Emergency (ER) | payer MEDICAID, SELFPAY ==
[2024-08-06 17:24] VITALS: BP 132/80; PULSE 134; RESP 18; TEMP 36.8; O2SAT 98; BMI 29.2
--- NOTE | 2024-08-06 17:33 | ECG_ITS ---
[facility] Test Date: 2024-08-06 Pat Name: Mireya Mane Department: Room: Gender: Female Guest Services Assistant: : 1985 Requested By: Elly Gil Order Number: [id number] Isauro MD: Gabino Macdonald M.D. Measurements Intervals [place] Rate: 105 P: 77 [place]: 141 QRS: 46 QRSD: 86 T: 75 QT: 331 QTc: 439 Interpretive Statements SINUS TACHYCARDIA POSSIBLE RIGHT VENTRICULAR CONDUCTION DELAY [RSR (QR) IN V1/V2] ABNORMAL RHYTHM ECG No previous ECG available for comparison Electronically Signed On 08-06-2024 23:28:08 CDT by Gabino Macdonald M.D. [email or web address]
[2024-08-06] MEDS: sodium chloride 0.9% 1,000 ML 999 ML IV ×2 (18:02)
[2024-08-06 18:15] LABS: Basophils % 0.4 %; Eosinophils # 0.1 10^3/uL (0.0-0.8); Eosinophils % 1.5 %; Hematocrit 42.9 % (36-47); Lymphocytes # 1.8 10^3/uL (0.8-4.8); Lymphocytes % 19.2 %; Mean Corpuscular HGB Conc 32.4 g/dL (30-55); Mean Corpuscular Volume 95.5 fl (85-98); Mean Platelet Volume 10.5 fL (7.4-10.4); Monocytes # 0.8 10^3/uL (0.2-0.9); Monocytes % 8.8 %; Neutrophils # 6.47 10^3/uL (1.8-7.7); Neutrophils % 69.8 %; Nucleated Red Blood Cells % 0 %; Platelet Count 234 10^3/cmm (157-399); Red Blood Count 4.49 10^6/uL (3.85-5.65); Red Cell Distribution Width 13.1 % (12.1-15.1); White Blood Count 9.28 10^3/uL (3.29-11.43)
[2024-08-06 18:31] LABS: Alanine Aminotransferase 17 U/L (0-33); Albumin Level 3.7 g/dL (3.5-5.2); Alkaline Phosphatase 89 U/L (35-105); Anion Gap 11.8 (5-19); Aspartate Amino Transferase 32 U/L (0-32); Blood Urea Nitrogen 7 mg/dL (6-20); Calcium 8.7 mg/dL (8.5-10.5); Carbon Dioxide 28 mmol/L (22-29); Chloride 102 mmol/L (98-107); Creatinine Clr Calc Pharmacy 107.2645; Globulin 3.2 g/dL (1.3-4.6); Glomerular Filtration Rate 110.7 mL/min (90-130); Glucose 129 mg/dL (65-115); Lipase 47 U/L (13-60); Magnesium 1.9 mg/dL (1.7-2.3); Osmolality Calculated 288 mOsm/kg (285-295); Sodium 139 mmol/L (136-145); Total Bilirubin 0.2 mg/dL (0.15-1.2); Total Protein 6.9 g/dL (6.6-8.7)
[2024-08-06 18:32] LABS: Potassium 2.8 mmol/L (3.5-5.1)
[2024-08-06 18:46] LABS: Bilirubin Urine Negative (Negative); Blood Urine 3+ (Negative); Glucose Urine UA Negative (Normal); Ketones Urine Negative (Negative); Leukocyte Esterase Urine 3+ (Negative); Nitrate Urine Negative (Negative); Protein Urine 1+ (Negative); Specific Gravity, Urine 1.012 (1.005-1.030); Urine Appearance Cloudy (CLEAR); pH Urine 7.5 (5-7)
--- NOTE | 2024-08-06 18:50 | XRR_ITS ---
PROCEDURE INFORMATION: Exam: XR Lumbosacral Spine Exam date and time: 08/06/2024 6:56 PM Age: 39 years old Clinical indication: Injury or trauma; Fall; Blunt trauma (contusions or hematomas); Additional info: Fall pain sciatica right TECHNIQUE: Imaging protocol: Radiologic exam of the lumbosacral spine. Views: 2 or 3 views. COMPARISON: CR XR lumbar spine min 4V [id number] 07/22/2024 3:32 PM FINDINGS: Bones/joints: Acute fracture. Vertebral body heights are maintained. Spinal alignment is intact. Similar interval disc space height loss at L4-L5 and L5-S1. Soft tissues: Unremarkable. Organs: Cholecystectomy clips. Surgical clips again seen in the left abdomen. XR/XR lumbar spine 2-3V* [id number] IMPRESSION: No acute osseous findings.
[2024-08-06 19:01] LABS: UA Manual Slide Review YES; UA Slide Review UA Slide Review Perf; Urine Color Orange (Yellow)
[2024-08-06 19:03] LABS: Add Urine Culture? Yes; Add Urine Microscopic? YES; Bacteria Urine 4+ /hpf; Mucus Urine TRACE /hpf; RBC Urine >100 /hpf (0-2); Squamous Epithelial Cell Urine 0-4 /hpf (0-5); Transitional Epi Cells Urine 0-4 /hpf; WBC Urine >100 /hpf (0-5)
[2024-08-06] MEDS: ondansetron 2 mg/ML SDV 2 mL 4 MG IVP (19:06)
[2024-08-06] MEDS: potassium chloride oral liq 20 mEq/15 mL UDC 40 MEQ PO (19:06)
--- NOTE | 2024-08-06 19:07 | ED_ITS ---
HPI - Nausea/Vomiting/Diarrhea 2 General: Chief complaint: Nausea/Vomiting/Diarrhea Stated complaint: v blood, pain in R. leg unable to walk on R.leg Time Seen by Provider: 08/06/24 17:33 History of Present Illness: Patient presents to the ER with complaints of just feeling bad all over times about the last 4 days. Says she has had some brownish-red vomit that shows blood. She had diarrhea yesterday. First day today she has been able to keep anything down. Was seen in ER [place] 2 days ago for left AMA after they failed to get an IV after 4 attempts. Patient is also complaining of a recent fall and now she is having right leg sciatica type pain from her but cheek all the way down to her knee. Patient is seeing Dr. Reid and has had previous back surgery in the past. Related Data Home Medications Medication Instructions Recorded Confirmed gabapentin 300 mg capsule 300 mg PO DAILY 07/22/24 08/06/24 Previous Rx's Medication Instructions Recorded ciprofloxacin HCl 500 mg tablet 500 mg PO Q12H #20 tabs 08/06/24 meloxicam 7.5 mg tablet 7.5 mg PO .Twice daily #14 tabs 08/06/24 ondansetron HCl 4 mg tablet 4 mg PO Q8H PRN nausea and 08/06/24 vomiting #14 tabs potassium chloride 20 mEq 20 meq PO BID #14 tabs 08/06/24 tablet,extended release Allergies Allergy/AdvReac Type Severity Reaction Status Date / Time divalproex sodium Allergy Unconscious Verified 08/06/24 17:31 [From [facility]] Review of Systems 2 General: Reports: 10 or more systems reviewed and unremarkable except in HPI and below PFSH ED 2 PFSH: Medical History No pertinent past medical history Social History Smoking and tobacco/nicotine status: never used tobacco/nicotine Second hand smoke exposure: No Alcohol intake: current Substance/Drug Use: current Substance/Drug use frequency: few times a week Female Reproductive History: Date of last menstrual period: 08/04/24 Physical Exam 2 Const: COMMON NORMALS: no acute distress, average body habitus, patient oriented x3, no limitations, healthy appearing, alert and well nourished HENMT: COMMON NORMALS: normocephalic, atraumatic, hearing grossly normal bilaterally, external ears normal, Normal external nose present and moist oral mucous membranes HEAD & SCALP: normocephalic and atraumatic NOSE: Normal external nose present EXTERNAL EAR: Yes external ears normal Neck/C-Spine: COMMON NORMALS: no JVD Chest: COMMONS NORMALS: normal inspection of the chest and normal palpation of entire chest wall Resp: COMMON NORMALS: normal respiratory effort, No retractions, No use of accessory muscles and clear to auscultation bilaterally AUSCULTATION: clear to auscultation bilaterally Cardio: COMMON NORMALS: no JVD, regular rate, regular rhythm, S1 normal heart sound present, S2 normal heart sound present, No gallops present (Cardio), No clicks present (Cardio), No murmurs present (Cardio) and No rub (Cardio) R ATE: regular rate RHYTHM: regular rhythm HEART SOUNDS: S1 normal heart sound present and S2 normal heart sound present GI: COMMON NORMALS: Normal to inspection, nondistended, normoactive bowel sounds present, Soft to palpation, non-tender, No hepatosplenomegaly present and no masses PALPATION: Yes Soft to palpation and Yes No hepatosplenomegaly present Neuro: COMMON NORMALS: patient oriented x3 SENSORIUM/ORIENTATION: Yes alert Course 2 Vital Signs: Vital signs: Vital Signs Temperature 98.2 F 08/06/24 17:24 Pulse Rate 101 H 08/06/24 20:00 Respiratory Rate 14 08/06/24 20:00 Blood Pressure 106/88 08/06/24 20:00 Pulse Oximetry 97 08/06/24 20:00 Oxygen Delivery Me thod Room Air 08/06/24 20:00 MDM - Nausea/Vomiting/Diarrhea Medical Decision Making Lab work was obtained which showed a potassium of 2.8, and positive for urinary tract infection, lumbar spine x-ray was negative for acute fractures. Patient was given potassium supplementation as well as Cipro and Toradol. Multiple of these prescriptions been called into patient's pharmacy. Patient should follow- up with her PCP within the next 7 days. Medical Records I reviewed the patient's medical records. Lab Data I reviewed the patient's lab results. 08/06/24 17:52 08/06/24 17:52 Radiology Impressions Lumbar Spine X-Ray 08/06/24 18:50 IMPRESSION: No acute osseous findings. Laboratory Results WBC 9.28 10^3/uL (3.29-11.43) 08/06/24 17:52 RBC 4.49 10^6/uL (3.85-5.65) 08/06/24 17:52 Hgb 13.90 g/dL (11.27-16.99) 08/06/24 17:52 Hct 42.9 % (36-47) 08/06/24 17:52 MCV 95.5 fl (85-98) 08/06/24 17:52 MCH 31.0 pg (27-33) 08/06/24 17:52 MCHC 32.4 g/dL (30-55) 08/06/24 17:52 RDW 13.1 % (12.1-15.1) 08/06/24 17:52 Plt Count 234 10^3/cmm (157-399) 08/06/24 17:52 MPV 10.5 fL (7.4-10.4) H 08/06/24 17:52 Neut % (Auto) 69.8 % 08/06/24 17:52 Lymph % (Auto) 19.2 % 08/06/24 17:52 [place] % (Auto) 8.8 % 08/06/24 17:52 Eos % (Auto) 1.5 % 08/06/24 17:52 Baso % (Auto) 0.4 % 08/06/24 17:52 Neut # (Auto) 6.47 10^3/uL (1.8-7.7) 08/06/24 17:52 Lymph # (Auto) 1.8 10^3/uL (0.8-4.8) 08/06/24 17:52 [place] # (Auto) 0.8 10^3/uL (0.2-0.9) 08/06/24 17:52 Eos # (Auto) 0.1 10^3/uL (0.0-0.8) 08/06/24 17:52 Baso # (Auto) 0.0 10^3/uL (0.0-0.1) 08/06/24 17:52 Nucleated RBC % (auto) 0 % 08/06/24 17:52 Nucleated RBCs # 0.0 /100WBC 08/06/24 17:52 Sodium 139 mmol/L (136-145) 08/06/24 17:52 Potassium 2.8 mmol/L (3.5-5.1) L* 08/06/24 17:52 Chloride 102 mmol/L (98-107) 08/06/24 17:52 Carbon Dioxide 28 mmol/L (22-29) 08/06/24 17:52 Anion Gap 11.8 (5-19) 08/06/24 17:52 BUN 7 mg/dL (6-20) 08/06/24 17:52 Creatinine 0.6 mg/dL (0.5-0.9) 08/06/24 17:52 GFR Calculation 110.7 mL/min (90-130) 08/06/24 17:52 Glucose 129 mg/dL (65-115) H 08/06/24 17:52 Calculated Osmolality 288 mOsm/kg (285-295) 08/06/24 17:52 Calcium 8.7 mg/dL (8.5-10.5) 08/06/24 17:52 Magnesium 1.9 mg/dL (1.7-2.3) 08/06/24 17:52 Total Bilirubin 0.2 mg/dL (0.15-1.2) 08/06/24 17:52 AST 32 U/L (0-32) 08/06/24 17:52 ALT 17 U/L (0-33) 08/06/24 17:52 Alkaline Phosphatase 89 U/L (35-105) 08/06/24 17:52 Total Protein 6.9 g/dL (6.6-8.7) 08/06/24 17:52 Albumin 3.7 g/dL (3.5-5.2) 08/06/24 17:52 Globulin 3.2 g/dL (1.3-4.6) 08/06/24 17:52 Lipase 47 U/L (13-60) 08/06/24 17:52 Urine Color [place] (Yellow) A 08/06/24 18:29 Urine Appearance Cloudy (CLEAR) A 08/06/24 18:29 Urine pH 7.5 (5-7) 08/06/24 18:29 Ur Specific [place] 1.012 (1.005-1.030) 08/06/24 18:29 Urine Protein 1+ (Negative) A 08/06/24 18:29 Urine Glucose (UA) Negative (Normal) 08/06/24 18: Urine Ketones Negative (Negative) 08/06/24 18: Urine Blood 3+ (Negative) A 08/06/24 18: Urine Nitrate Negative (Negative) 08/06/24 18: Urine Bilirubin Negative (Negative) 08/06/24 18: Urine Urobilinogen 2.0 mg/dL (Negative) H 08/06/24 18:29 Ur Leukocyte Esterase 3+ (Negative) A 08/06/24 18:29 Urine RBC >100 /hpf (0-2) H 08/06/24 18: Urine WBC >100 /hpf (0-5) H 08/06/24 18:29 Ur Squamous Epith Cells 0-4 /hpf (0-5) H 08/06/24 18:29 Ur Transition Epith Cell 0-4 /hpf 08/06/24 18: Amorphous Sediment Not Reportable 08/06/24 18: Urine Bacteria 4+ /hpf (NONE) H 08/06/24 18:29 Urine Mucus Trace /hpf 08/06/24 18:29 All radiology interpretation(s) finalized by discharge Discharge Plan Discharge Patient Disposition: Home Clinical Impression: Gastroenteritis, Acute hypokalemia Urinary tract infection Qualifiers: Urinary tract infection type: acute cystitis Hematuria presence: with hematuria Qualified Code(s): N30.01 - Acute cystitis with hematuria Sciatica Qualifiers: Laterality: right Qualified Code(s): M54.31 - Sciatica, right side Condition: Stable Prescriptions: New ciprofloxacin HCl 500 mg tablet 500 mg PO Q12H Qty: 20 0RF ondansetron HCl 4 mg tablet 4 mg PO Q8H PRN (Reason: nausea and vomiting) Qty: 14 0RF meloxicam 7.5 mg tablet 7.5 mg PO .Twice daily Qty: 14 0RF potassium chloride 20 mEq tablet extended release 20 meq PO BID Qty: 14 0RF No Action gabapentin 300 mg capsule 300 mg PO DAILY Discharge Orders: Discharge ED (Routine); Ordered 08/06/24 Ordered By: Pradip Stubbs Referrals: Tommy Villalobos FNP [Primary Care Provider] - 1 week Patient Instructions: Acute Nausea and Vomiting (DC), Hypokalemia (ED), Urinary Tract Infection - Women Activity Restrictions/Additional Instructions: 4 prescriptions have been called into your pharmacy. Please pick them up and take them as directed. Please follow-up with your family practice physician within next 7 days for further evaluation and treatment. Coding Level of Care Code ED Handicrafts Teacher for Joey Gay
[2024-08-06] MEDS: ketorolac 30 mg/mL INJ IVP (19:08)
[2024-08-06] MEDS: ciprofloxacin 500 mg Tablet PO (19:10)
[2024-08-06 20:00] VITALS: BP 106/88; PULSE 101; RESP 14; O2SAT 97
[2024-08-06 21:30] VITALS: BP 127/81; PULSE 100; RESP 20; O2SAT 97
[2024-08-06 21:37] VITALS: BP 134/77; PULSE 105; O2SAT 97
== END 2024-08-06 21:39 | disposition home or self-care (01) ==
PROVIDERS: Emergency Medicine; Emergency Provider Emergency Medicine; PCP Nurse Practitioner
DX: K52.9 Noninfective gastroenteritis and colitis, unspecified (principal); E87.6 Hypokalemia; N30.01 Acute cystitis with hematuria; M54.31 Sciatica, right side
CPT/HCPCS: 72100; 80053; 81001; 83690; 83735; 85025; 87077; 87086; 87186; 93005; 96361; 96374; 96375; 99285; J1885; J2405; J7030

== ENCOUNTER 2024-08-12 00:23 | Emergency (ER) | payer MEDICAID, SELFPAY ==
[2024-08-12 00:25] VITALS: BP 125/74; PULSE 101; RESP 18; TEMP 37; O2SAT 96; BMI 28.3
--- NOTE | 2024-08-12 00:28 | ECG_ITS ---
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
--- NOTE | 2024-08-12 00:43 | XRR_ITS ---
PROCEDURE INFORMATION: Exam: XR Chest Exam date and time: 08/12/2024 12:56 AM Age: 39 years old Clinical indication: Other: Epigastric pain, n/v; Additional info: Chest pain TECHNIQUE: Imaging protocol: Radiologic exam of the chest. Views: 1 view. COMPARISON: CR XR chest 1V portable [id number] 11/20/2023 5:23 PM FINDINGS: Lungs: Unremarkable. No consolidation. Pleural spaces: Unremarkable. No pleural effusion. No pneumothorax. Heart/Mediastinum: Unremarkable. No cardiomegaly. Bones/joints: Unremarkable. XR/XR chest 1V portable [id number] IMPRESSION: No acute findings.
[2024-08-12 01:11] LABS: Basophils % 0.2 %; Eosinophils # 0.1 10^3/uL (0.0-0.8); Eosinophils % 1.2 %; Hematocrit 38.9 % (36-47); Lymphocytes # 1.7 10^3/uL (0.8-4.8); Lymphocytes % 18.1 %; Mean Corpuscular HGB Conc 32.4 g/dL (30-55); Mean Corpuscular Hemoglobin 31.2 pg (27-33); Mean Corpuscular Volume 96.3 fl (85-98); Mean Platelet Volume 10.5 fL (7.4-10.4); Monocytes # 0.8 10^3/uL (0.2-0.9); Monocytes % 8.5 %; Neutrophils # 6.83 10^3/uL (1.8-7.7); Neutrophils % 71.7 %; Nucleated Red Blood Cells % 0 %; Platelet Count 240 10^3/cmm (157-399); Red Blood Count 4.04 10^6/uL (3.85-5.65); Red Cell Distribution Width 13.2 % (12.1-15.1); White Blood Count 9.52 10^3/uL (3.29-11.43)
[2024-08-12 01:30] LABS: Troponin(5th) Baseline 21 ng/L (0-10)
[2024-08-12 01:34] LABS: Alanine Aminotransferase 10 U/L (0-33); Albumin Level 3.7 g/dL (3.5-5.2); Alkaline Phosphatase 87 U/L (35-105); Aspartate Amino Transferase 22 U/L (0-32); Blood Urea Nitrogen 8 mg/dL (6-20); Calcium 8.5 mg/dL (8.5-10.5); Carbon Dioxide 25 mmol/L (22-29); Chloride 102 mmol/L (98-107); Creatinine Clr Calc Pharmacy 94.2684; Globulin 2.5 g/dL (1.3-4.6); Glomerular Filtration Rate 92.7 mL/min (90-130); Glucose 111 mg/dL (65-115); Magnesium 1.9 mg/dL (1.7-2.3); Osmolality Calculated 285 mOsm/kg (285-295); Sodium 138 mmol/L (136-145); Total Bilirubin 0.4 mg/dL (0.15-1.2); Total Protein 6.2 g/dL (6.6-8.7)
[2024-08-12 01:37] LABS: Anion Gap 14.9 (5-19); Potassium 3.9 mmol/L (3.5-5.1)
[2024-08-12] MEDS: sodium chloride 0.9% 1,000 ML 999 ML IV (02:02)
[2024-08-12] MEDS: ondansetron 2 mg/ML SDV 2 mL 4 MG IVP (02:02)
[2024-08-12] MEDS: ketorolac 30 mg/mL INJ IVP (02:05)
[2024-08-12 02:09] VITALS: BP 126/85; PULSE 78; RESP 18; O2SAT 98
--- NOTE | 2024-08-12 02:23 | ED_ITS ---
HPI - Nausea/Vomiting/Diarrhea 2 General: Chief complaint: Nausea/Vomiting/Diarrhea Stated complaint: N/V, Weakness Time Seen by Provider: 08/12/24 00:43 History of Present Illness: Patient presents to the ER with complaints of nausea vomiting and right leg intermittently jerking. She also has having some epigastric chest pain. She was seen on Sunday for the same thing diagnosed with a UTI and low potassium was sent home on potassium and antibiotics which she states she is currently taking. Related Data Home Medications Medication Instructions Recorded Confirmed gabapentin 300 mg capsule 300 mg PO DAILY 07/22/24 08/06/24 Previous Rx's Medication Instructions Recorded meloxicam 7.5 mg tablet 7.5 mg PO .Twice daily #14 tabs 08/06/24 ondansetron HCl 4 mg tablet 4 mg PO Q8H PRN nausea and 08/06/24 vomiting #14 tabs potassium chloride 20 mEq 20 meq PO BID #14 tabs 08/06/24 tablet,extended release amoxicillin 875 mg-potassium 1 tab PO Q12H #20 tabs 08/12/24 clavulanate 125 mg tablet ciprofloxacin HCl 500 mg tablet 500 mg PO Q12H #20 tabs 08/12/24 Allergies Allergy/AdvReac Type Severity Reaction Status Date / Time albuterol Allergy ALGY-Difficulty Verified 08/12/24 00:35 Breathing divalproex sodium Allergy Unconscious Verified 08/06/24 17:31 [From Depakote] Review of Systems 2 General: Reports: 10 or more systems reviewed and unremarkable except in HPI and below PFSH ED 2 PFSH: Medical History No pertinent past medical history Social History Smoking and tobacco/nicotine status: never used tobacco/nicotine Second hand smoke exposure: No Alcohol intake: current Substance/Drug Use: current Substance/Drug use frequency: few times a week Physical Exam 2 Const: COMMON NORMALS: no acute distress, average body habitus, patient oriented x3, no limitations, healthy appearing, alert and well nourished HENMT: COMMON NORMALS: normocephalic, atraumatic, hearing grossly normal bilaterally, external ears normal, Normal external nose present and moist oral mucous membranes HEAD & SCALP: normocephalic and atraumatic NOSE: Normal external nose present EXTERNAL EAR: Yes external ears normal Neck/C-Spine: COMMON NORMALS: full ROM, no lymphadenopathy, supple, no meningeal signs, no JVD and Thyroid normal THYROID: Thyroid normal Chest: COMMONS NORMALS: normal inspection of the chest and normal palpation of entire chest wall Resp: COMMON NORMALS: normal respiratory effort, No retractions, No use of accessory muscles and clear to auscultation bilaterally AUSCULTATION: clear to auscultation bilaterally Cardio: COMMON NORMALS: no JVD, regular rate, regular rhythm, S1 normal heart sound present, S2 normal heart sound present, No gallops present (Cardio), No clicks present (Cardio), No murmurs present (Cardio) and No rub (Cardio) R ATE: regular rate RHYTHM: regular rhythm HEART SOUNDS: S1 normal heart sound present and S2 normal heart sound present GI: COMMON NORMALS: Normal to inspection, nondistended, normoactive bowel sounds present, Soft to palpation, non-tender, No hepatosplenomegaly present and no masses PALPATION: Yes Soft to palpation and Yes No hepatosplenomegaly present Neuro: COMMON NORMALS: patient oriented x3 SENSORIUM/ORIENTATION: Yes alert MENINGEAL SIGNS: Yes no meningeal signs Course 2 Vital Signs: Vital signs: Vital Signs Temperature 98.6 F 08/12/24 00:25 Pulse Rate 85 08/12/24 03:57 Respiratory Rate 18 08/12/24 02:09 Blood Pressure 117/77 08/12/24 03:57 Pulse Oximetry 96 08/12/24 03:57 Oxygen Delivery Me thod Room Air 08/12/24 03:30 MDM - Nausea/Vomiting/Diarrhea Medical Decision Making Lab work was reviewed as well as chest and abdomen pelvis CT scan, urine sensitivity culture was reviewed from last visit she is appears on Cipro which is resistant. Will change her over to Augmentin. Patient be discharged home. Differential Diagnosis Likely gastroenteritis Medical Records I reviewed the patient's medical records. Lab Data I reviewed the patient's lab results. 08/12/24 00:55 08/12/24 00:55 Radiology Impressions Chest X-Ray 08/12/24 00:43 IMPRESSION: No acute findings. Abdomen/Pelvis CT 08/12/24 02:25 IMPRESSION: Negative for acute abdominopelvic pathology. Laboratory Results WBC 9.52 10^3/uL (3.29-11.43) 08/12/24 00:55 RBC 4.04 10^6/uL (3.85-5.65) 08/12/24 00:55 Hgb 12.60 g/dL (11.27-16.99) 08/12/24 00:55 Hct 38.9 % (36-47) 08/12/24 00:55 MCV 96.3 fl (85-98) 08/12/24 00:55 MCH 31.2 pg (27-33) 08/12/24 00:55 MCHC 32.4 g/dL (30-55) 08/12/24 00:55 RDW 13.2 % (12.1-15.1) 08/12/24 00:55 Plt Count 240 10^3/cmm (157-399) 08/12/24 00:55 MPV 10.5 fL (7.4-10.4) H 08/12/24 00:55 Neut % (Auto) 71.7 % 08/12/24 00:55 Lymph % (Auto) 18.1 % 08/12/24 00:55 [place] % (Auto) 8.5 % 08/12/24 00:55 Eos % (Auto) 1.2 % 08/12/24 00:55 Baso % (Auto) 0.2 % 08/12/24 00:55 Neut # (Auto) 6.83 10^3/uL (1.8-7.7) 08/12/24 00:55 Lymph # (Auto) 1.7 10^3/uL (0.8-4.8) 08/12/24 00:55 [place] # (Auto) 0.8 10^3/uL (0.2-0.9) 08/12/24 00:55 Eos # (Auto) 0.1 10^3/uL (0.0-0.8) 08/12/24 00:55 Baso # (Auto) 0.0 10^3/uL (0.0-0.1) 08/12/24 00:55 Nucleated RBC % (auto) 0 % 08/12/24 00:55 Nucleated RBCs # 0.0 /100WBC 08/12/24 00:55 Sodium 138 mmol/L (136-145) 08/12/24 00:55 Potassium 3.9 mmol/L (3.5-5.1) 08/12/24 00:55 Chloride 102 mmol/L (98-107) 08/12/24 00:55 Carbon Dioxide 25 mmol/L (22-29) 08/12/24 00:55 Anion Gap 14.9 (5-19) 08/12/24 00:55 BUN 8 mg/dL (6-20) 08/12/24 00:55 Creatinine 0.7 mg/dL (0.5-0.9) 08/12/24 00:55 GFR Calculation 92.7 mL/min (90-130) 08/12/24 00:55 Glucose 111 mg/dL (65-115) 08/12/24 00:55 Calculated Osmolality 285 mOsm/kg (285-295) 08/12/24 00:55 Calcium 8.5 mg/dL (8.5-10.5) 08/12/24 00:55 Magnesium 1.9 mg/dL (1.7-2.3) 08/12/24 00:55 Total Bilirubin 0.4 mg/dL (0.15-1.2) 08/12/24 00:55 AST 22 U/L (0-32) 08/12/24 00:55 ALT 10 U/L (0-33) 08/12/24 00:55 Alkaline Phosphatase 87 U/L (35-105) 08/12/24 00:55 Troponin T Baseline 21 ng/L (0-10) H 08/12/24 00:55 Troponin T 120 Minute 20.26 ng/L (0-10) H 08/12/24 03:15 Delta Troponin T -0.74 ABS# (0-10) L 08/12/24 03:15 Total Protein 6.2 g/dL (6.6-8.7) L 08/12/24 00:55 Albumin 3.7 g/dL (3.5-5.2) 08/12/24 00:55 Globulin 2.5 g/dL (1.3-4.6) 08/12/24 00:55 All radiology interpretation(s) finalized by discharge Discharge Plan Discharge Patient Disposition: Home Clinical Impression: Urinary tract infection Qualifiers: Urinary tract infection type: acute cystitis Hematuria presence: with hematuria Qualified Code(s): N30.01 - Acute cystitis with hematuria Condition: Stable Prescriptions: New ciprofloxacin HCl 500 mg tablet 500 mg PO Q12H Qty: 20 0RF amoxicillin-pot clavulanate 875-125 mg tablet 1 tab PO Q12H Qty: 20 0RF Discontinued ciprofloxacin HCl 500 mg tablet 500 mg PO Q12H Qty: 20 0RF No Action gabapentin 300 mg capsule 300 mg PO DAILY ondansetron HCl 4 mg tablet 4 mg PO Q8H PRN (Reason: nausea and vomiting) Qty: 14 0RF meloxicam 7.5 mg tablet 7.5 mg PO .Twice daily Qty: 14 0RF potassium chloride 20 mEq tablet extended release 20 meq PO BID Qty: 14 0RF Discharge Orders: Discharge ED (Routine); Ordered 08/12/24 Ordered By: Pradip Stubbs Referrals: Tommy Villalobos, RADIO RECORDER [Primary Care Provider] - 1 week Patient Instructions: Urinary Tract Infection in Women (DC) Activity Restrictions/Additional Instructions: Please factor ciprofloxacin has your urinary tract infection bacteria is resistant to that medicine. Please start Augmentin, this has been called into your pharmacy. Please follow-up with your family practitioner in the next 7 days for further evaluation and treatment. Coding Level of Care Code ED Pipe Finisher for Joey Gay
--- NOTE | 2024-08-12 02:25 | CTR_ITS ---
PROCEDURE INFORMATION: Exam: CT Abdomen And Pelvis With Contrast Exam date and time: 08/12/2024 2:44 AM Age: 39 years old Clinical indication: Abdominal tenderness and nausea and vomiting; Additional info: Abd pain n/v TECHNIQUE: Imaging protocol: Computed tomography of the abdomen and pelvis with contrast. Radiation optimization: All CT scans at this facility use at least one of these dose optimization techniques: automated exposure control; mA and/or kV adjustment per patient size (includes targeted exams where dose is matched to clinical indication); or iterative reconstruction. Contrast material: OMNI 350; Contrast volume: 100 ml; Contrast route: INTRAVENOUS (IV); COMPARISON: CR (PELVIS, ) 08/06/2024 6:56 PM RADIATION DOSE METRICS: Total DLP (mGy-cm): 673.92 FINDINGS: Liver: Normal. No mass. Gallbladder and biliary ducts: Cholecystectomy. Nondilated biliary system. Pancreas: Normal. No ductal dilation. Spleen: Normal. No splenomegaly. Adrenal glands: Normal. No mass. Kidneys and ureters: Normal. No hydronephrosis. Stomach and bowel: Unremarkable. No obstruction. No mucosal thickening. Appendix: Normal appendix. Intraperitoneal space: Unremarkable. No free air. No significant fluid collection. Vasculature: Unremarkable. No abdominal aortic aneurysm. Lymph nodes: Unremarkable. No enlarged lymph nodes. Urinary bladder: Unremarkable as visualized. Reproductive: Unremarkable as visualized. Bones/joints: Severe disc disease changes at L5-S1. Lumbar spine straightening. Negative for fractures. Soft tissues: Unremarkable. CT/CT abdomen pelvis w con* [id number] IMPRESSION: Negative for acute abdominopelvic pathology.
[2024-08-12 02:30] VITALS: BP 132/77; PULSE 76; O2SAT 98
--- NOTE | 2024-08-12 02:44 | ECG_ITS ---
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
[2024-08-12] MEDS: iohexol 350 mg/mL 500 mL Btl (per mL) IV (02:56)
[2024-08-12 03:00] VITALS: BP 119/69; PULSE 94; O2SAT 97
[2024-08-12 03:30] VITALS: BP 117/77; O2SAT 98
[2024-08-12 03:36] LABS: Troponin 5 2HR 20.26 ng/L (0-10)
[2024-08-12 03:39] LABS: Troponin 5 2HR Delta -0.74 ABS# (0-10)
[2024-08-12 03:57] VITALS: BP 117/77; PULSE 85; O2SAT 96
[2024-08-12] MEDS: amoxicillin-clav 875-125 mg Tablet 1 TAB PO (03:57)
== END 2024-08-12 03:59 | disposition home or self-care (01) ==
PROVIDERS: Emergency Provider Emergency Medicine; PCP Nurse Practitioner
DX: N30.01 Acute cystitis with hematuria (principal)
CPT/HCPCS: 36415; 71045; 74177; 80053; 83735; 84484; 85025; 93005; 96361; 96374; 96375; 99285; J1885; J2405; J7030

== ENCOUNTER 2024-08-14 15:06 | Outpatient (CLI) | payer MEDICAID, SELFPAY ==
--- NOTE | 2024-08-14 15:15 | MR_ITS ---
WS: [id number] MRI LUMBAR SPINE NONCONTRAST HISTORY: lumbar pain LEFT leg pain. COMPARISON: 11/13/2022 TECHNIQUE: Sagittal and axial multisequence imaging is submitted. Mild straightening of the normal cervical lordosis and thoracic kyphosis. Marked straightening of the normal lumbar lordosis as seen on the prior study. Progression of degener ative disc disease at L5-S1. There is marrow edema with partial fatty replacement along the endplates . L5 retrolisthesis by 4 mm. Facet joint arthropathy is also increasing at L5-S1. Remaining discs are mildly desiccated. Conus terminates normally at L1. L1-L2: Normal. L2-L3: Mild facet joint arthritis with ligamentum flavum hypertrophy. Mild encroachment upon the suba rticular recesses and traversing L3 nerve roots. No high-grade stenosis. L3-L4: Small LEFT subarticular disc protrusion contacts the traversing L4 nerve root in the subarticu lar recess. Mild to moderate central stenosis. Moderate bilateral facet arthropathy and ligamentum fl avum hypertrophy. Mild to moderate LEFT foraminal stenosis. L4-L5: Mild annular disc bulging with central annular fissures and central disc protrusion. Disc encr oachment upon the subarticular recesses and traversing L5 nerve roots, LEFT greater than RIGHT. Mild bilateral foraminal narrowing, LEFT greater than RIGHT. Ligamentum flavum and facet joint arthritis. Small amount of fluid in the facet joints. L5-S1: Large central disc protrusion extends caudad to the disc level into the subarticular recesses. There is significant deformity upon the traversing S1 nerve roots, RIGHT greater than LEFT. Disc and osteophyte disease and facet arthritis resulting in severe central, subarticular recess and foramina l stenosis. Complete effacement of fat in the foramen with disc protrusions and osteophytes. Progress ed since the prior study. MR/MR lumbar spine wo con* [id number] IMPRESSION: 1. Severe progression of degenerative disc disease and stenosis at the L5-S1 l evel since 11/13/2022. Marrow edema now present within the L5 and S1 vertebral kalli dies in the posterior elements. 2. L5 retrolisthesis by 4 mm. 3. L5-S1: Severe central, bilateral subarticular recess and foraminal stenosis . Large central disc protrusion contacting the S1 nerve roots. Progression of d isease since the prior study. 4. L4-5: Central disc protrusion with annular fissure. Mild disc encroachment upon the lateral recesses and traversing L5 nerve roots, LEFT greater than RIGH T. Mild bilateral foraminal and subarticular recess stenosis. 5. L3-4: Small LEFT subarticular disc protrusion contacting the traversing L4 nerve root. Mild to moderate central with LEFT foraminal stenosis.
== END 2024-08-14 15:07 | disposition home or self-care (01) ==
LOC: RAD 15:06
PROVIDERS: PCP Nurse Practitioner; Visit Provider Orthopaedic Surgery
DX: M48.061 Spinal stenosis, lumbar region without neurogenic claudication (principal); Z98.890 Other specified postprocedural states; M51.16 Intervertebral disc disorders with radiculopathy, lumbar region; M54.50 Low back pain, unspecified; M48.07 Spinal stenosis, lumbosacral region
CPT/HCPCS: 72148

== ENCOUNTER → 2024-09-02 15:00 | Outpatient (BNVA) | payer MEDICAID, SELFPAY | PROVIDERS: PCP Nurse Practitioner; Visit Provider Orthopaedic Surgery | DX: M54.9 Dorsalgia, unspecified (principal); M48.061 Spinal stenosis, lumbar region without neurogenic claudication | CPT/HCPCS: 80053; 81001; 85025; 99214 ==

== ENCOUNTER 2024-09-03 18:49 | Emergency (ER) | payer MEDICAID, SELFPAY ==
[2024-09-03 18:53] VITALS: BP 130/84; PULSE 111; RESP 16; TEMP 36.8; O2SAT 93; BMI 29.2
[2024-09-03 18:57] VITALS: BP 117/82; PULSE 103; O2SAT 97
[2024-09-03 19:27] VITALS: PULSE 101; O2SAT 96
--- NOTE | 2024-09-03 19:43 | W.ED.FEMALGU ---
HPI - Female Genitourinary General: Chief complaint: Urogenital-Female Stated complaint: heavy bleeding 3wks, getting worse exhausted Time Seen by Provider: 09/03/24 19:22 History of Present Illness: 39-year-old female who presents to the emergency room with vaginal bleeding. She says this has been going on for over a couple weeks now. She states she has been feeling weak and sleeping more. Review of labs that she had done yesterday shows it looks like she has a urinary tract infection Date of Last Menstrual Period: 08/13/24 Related Data Home Medications Medication Instructions Recorded Confirmed gabapentin 300 mg capsule 300 mg PO DAILY 07/22/24 09/02/24 Previous Rx's Medication Instructions Recorded meloxicam 7.5 mg tablet 7.5 mg PO .Twice daily #14 tabs 08/06/24 ondansetron HCl 4 mg tablet 4 mg PO Q8H PRN nausea and 08/06/24 vomiting #14 tabs potassium chloride 20 mEq 20 meq PO BID #14 tabs 08/06/24 tablet,extended release amoxicillin 875 mg-potassium 1 tab PO Q12H #20 tabs 08/12/24 clavulanate 125 mg tablet ciprofloxacin HCl 500 mg tablet 500 mg PO Q12H #20 tabs 08/12/24 cefdinir 300 mg capsule 300 mg PO BID 5 days #10 caps 09/03/24 Allergies Allergy/AdvReac Type Severity Reaction Status Date / Time albuterol Allergy ALGY-Difficulty Verified 08/12/24 00:35 Breathing divalproex sodium Allergy Unconscious Verified 08/06/24 17:31 [From [facility]] Review of Systems Narrative: Constitutional symptoms: Negative except as documented in HPI. Skin symptoms: Negative except as documented in HPI. Eye symptoms: Negative except as documented in HPI. ENMT symptoms: Negative except as documented in HPI. Respiratory symptoms: Negative except as documented in HPI. Cardiovascular symptoms: Negative except as documented in HPI. Gastrointestinal symptoms: Negative except as documented in HPI. Genitourinary symptoms: Negative except as documented in HPI. Musculoskeletal symptoms: Negative except as documented in HPI. Neurologic symptoms: Negative except as documented in HPI. Psychiatric symptoms: Negative except as documented in HPI. Endocrine symptoms: Negative except as documented in HPI. [facility] ED PFSH: Medical History No pertinent past medical history Social History Smoking and tobacco/nicotine status: never used tobacco/nicotine Second hand smoke exposure: No Alcohol intake: current Substance/Drug Use: current Substance/Drug use frequency: few times a week Female Reproductive History: Date of last menstrual period: 08/13/24 Physical Exam Narrative: EXAM NARRATIVE: General: Alert, no acute distress. Skin: Warm, dry. Head: Normocephalic, atraumatic. Neck: Supple, trachea midline. Eye: Extraocular movements are intact. Ears, nose, mouth and throat: mucosa moist. Cardiovascular: Regular, Normal peripheral perfusion. Respiratory: Lungs are clear to auscultation, respirations are non-labored, breath sounds are equal, Symmetrical chest wall expansion. Gastrointestinal: Soft, Nontender, Non distended Musculoskeletal: Normal ROM, no deformity. Neurological: Alert and oriented, No focal neurological deficit observed. Psychiatric: Cooperative, appropriate mood & affect. Course Vital Signs: Vital signs: Vital Signs Temperature 98.3 F 09/03/24 18:53 Pulse Rate 98 09/03/24 20:52 Respiratory Rate 16 09/03/24 18:53 Blood Pressure 121/95 09/03/24 20:52 Pulse Oximetry 100 09/03/24 20:52 Oxygen Delivery Me thod Room Air 09/03/24 20:00 MDM - Female Medical Decision Making Medical decision making: Differential diagnosis including but not limited to and based on the above HPI, review of systems and physical exam: Patient is complaining of vaginal bleeding. At this point my primary concern emergency room is if she is anemic. She has not been feeling well so I also checked a urine which had been checked yesterday and appeared to be infected. Orders placed to evaluate differential diagnosis based on the above differential, HPI and physical exam Lab Review: Laboratory results were reviewed and interpreted by myself the emergency room physician. No anemia. Hemoglobin stable at 13. No leukocytosis. No renal failure. She does appear to have a urinary tract infection I reviewed the patient's medical record. Reexamination: Patient remained stable. No increased work of breathing. No altered mental status. No focal motor deficits. Assessment and plan: Urinary tract infection Dysfunctional uterine bleeding ?IV Rocephin in the emergency room - Discharged home - Discussed plan with patient. Answered any questions. - Evaluation and treatment of this problem were appropriate in the emergency setting. Lab Data 09/03/24 19:45 09/03/24 19:45 Laboratory Results WBC 7.93 10^3/uL (3.29-11.43) 09/03/24 19:45 RBC 4.32 10^6/uL (3.85-5.65) 09/03/24 19:45 Hgb 13.20 g/dL (11.27-16.99) 09/03/24 19:45 Hct 40.2 % (36-47) 09/03/24 19:45 MCV 93.1 fl (85-98) 09/03/24 19:45 MCH 30.6 pg (27-33) 09/03/24 19:45 MCHC 32.8 g/dL (30-55) 09/03/24 19:45 RDW 13.2 % (12.1-15.1) 09/03/24 19:45 Plt Count 208 10^3/cmm (157-399) 09/03/24 19:45 MPV 10.8 fL (7.4-10.4) H 09/03/24 19:45 Neut % (Auto) 69.0 % 09/03/24 19:45 Lymph % (Auto) 21.7 % 09/03/24 19:45 [place] % (Auto) 6.9 % 09/03/24 19:45 Eos % (Auto) 1.6 % 09/03/24 19:45 Baso % (Auto) 0.5 % 09/03/24 19:45 Neut # (Auto) 5.47 10^3/uL (1.8-7.7) 09/03/24 19:45 Lymph # (Auto) 1.7 10^3/uL (0.8-4.8) 09/03/24 19:45 [place] # (Auto) 0.6 10^3/uL (0.2-0.9) 09/03/24 19:45 Eos # (Auto) 0.1 10^3/uL (0.0-0.8) 09/03/24 19:45 Baso # (Auto) 0.0 10^3/uL (0.0-0.1) 09/03/24 19:45 Nucleated RBC % (auto) 0 % 09/03/24 19:45 Nucleated RBCs # 0.0 /100WBC 09/03/24 19:45 Sodium 140 mmol/L (136-145) 09/03/24 19:45 Potassium 3.5 mmol/L (3.5-5.1) 09/03/24 19:45 Chloride 105 mmol/L (98-107) 09/03/24 19:45 Carbon Dioxide 25 mmol/L (22-29) 09/03/24 19:45 Anion Gap 13.5 (5-19) 09/03/24 19:45 BUN 12 mg/dL (6-20) 09/03/24 19:45 Creatinine 0.6 mg/dL (0.5-0.9) 09/03/24 19:45 GFR Calculation 110.7 mL/min (90-130) 09/03/24 19:45 Glucose 99 mg/dL (65-115) 09/03/24 19:45 Calculated Osmolality 290 mOsm/kg (285-295) 09/03/24 19:45 Calcium 8.6 mg/dL (8.5-10.5) 09/03/24 19:45 Urine Color Yellow (Yellow) 09/03/24 19:15 Urine Appearance Clear (CLEAR) 09/03/24 19:15 Urine pH 5.5 (5-7) 09/03/24 19:15 Ur Specific [place] 1.025 (1.005-1.030) 09/03/24 19:15 Urine Protein Trace (Negative) A 09/03/24 19:15 Urine Glucose (UA) Negative (Normal) 09/03/24 19:15 Urine Ketones Negative (Negative) 09/03/24 19:15 Urine Blood 3+ (Negative) A 09/03/24 19:15 Urine Nitrate Positive (Negative) A 09/03/24 19:15 Urine Bilirubin Negative (Negative) 09/03/24 19:15 Urine Urobilinogen 1.0 mg/dL (Negative) 09/03/24 19:15 Ur Leukocyte Esterase 1+ (Negative) A 09/03/24 19:15 Urine RBC >100 /hpf (0-2) H 09/03/24 19:15 Urine WBC 15-25 /hpf (0-5) H 09/03/24 19:15 Ur Squamous Epith Cells 0-4 /hpf (0-5) H 09/03/24 19:15 Ur Transition Epith Cell 0-4 /hpf 09/03/24 19:15 Amorphous Sediment Not Reportable 09/03/24 19:15 Urine Bacteria 4+ /hpf (NONE) H 09/03/24 19:15 Urine Mucus Trace /hpf 09/03/24 19:15 No radiology studies performed this visit Discharge Plan Discharge Patient Disposition: Home Clinical Impression: Urinary tract infection, DUB (dysfunctional uterine bleeding) Condition: Stable Prescriptions: New cefdinir 300 mg capsule 300 mg PO BID 5 Days Qty: 10 0RF No Action gabapentin 300 mg capsule 300 mg PO DAILY ondansetron HCl 4 mg tablet 4 mg PO Q8H PRN (Reason: nausea and vomiting) Qty: 14 0RF meloxicam 7.5 mg tablet 7.5 mg PO .Twice daily Qty: 14 0RF potassium chloride 20 mEq tablet extended release 20 meq PO BID Qty: 14 0RF ciprofloxacin HCl 500 mg tablet 500 mg PO Q12H Qty: 20 0RF amoxicillin-pot clavulanate 875-125 mg tablet 1 tab PO Q12H Qty: 20 0RF Discharge Orders: Discharge ED (Routine); Ordered 09/03/24 Ordered By: Dulce Maria Calhoun Referrals: Tommy Villalobos FNP [Primary Care Provider] - Ok Jaun MD [Physician] - 4-7 days (Please call for an appointment with Dr. Juan or with felter tennis balls of your choosing) Discharge Diet: Usual diet Discharge Activity: Increase activity as tolerated Patient Instructions: Abnormal (Dysfunctional) Uterine Bleeding (ED), Urinary Tract Infection in Women (DC), Opioid Safety, Pain Management Activity Restrictions/Additional Instructions: Thank you for choosing [facility] for your healthcare needs today. Please realize this is an emergency room and that we are providing you with a medical screening exam and this may not be complete and all inclusive of all the testing and or work up that you may need to determine your ailment or severity of your illness. You have been screened and evaluated and felt safe for discharge. Health conditions do change or evolve sometimes and as such it is important that you follow up with your Primary Doctor to be re checked, 3-5 days is a general good time frame for follow up. You are always welcome to return to the ED for re assessment if your symptoms are worsening or you have new concerns Coding Level of Care Code ED Shipping Receiving Clerk for Joey Gay
[2024-09-03 19:56] LABS: Bilirubin Urine Negative (Negative); Blood Urine 3+ (Negative); Glucose Urine UA Negative (Normal); Ketones Urine Negative (Negative); Leukocyte Esterase Urine 1+ (Negative); Nitrate Urine Positive (Negative); Protein Urine Trace (Negative); Specific Gravity, Urine 1.025 (1.005-1.030); Urine Appearance Clear (CLEAR); Urine Color Yellow (Yellow); pH Urine 5.5 (5-7)
[2024-09-03 20:00] VITALS: BP 123/89; PULSE 100; O2SAT 95
[2024-09-03 20:05] LABS: RBC Urine >100 /hpf (0-2); Squamous Epithelial Cell Urine 0-4 /hpf (0-5); Transitional Epi Cells Urine 0-4 /hpf; WBC Urine 15-25 /hpf (0-5)
[2024-09-03 20:06] LABS: Add Urine Culture? Yes; Bacteria Urine 4+ /hpf; Mucus Urine TRACE /hpf
[2024-09-03] MEDS: cefTRIAXone 1,000 MG in water for injection-sterile 2.1 ML 1 MG IM (20:07)
[2024-09-03 20:13] LABS: Basophils % 0.5 %; Eosinophils # 0.1 10^3/uL (0.0-0.8); Eosinophils % 1.6 %; Hematocrit 40.2 % (36-47); Lymphocytes # 1.7 10^3/uL (0.8-4.8); Lymphocytes % 21.7 %; Mean Corpuscular HGB Conc 32.8 g/dL (30-55); Mean Corpuscular Hemoglobin 30.6 pg (27-33); Mean Corpuscular Volume 93.1 fl (85-98); Mean Platelet Volume 10.8 fL (7.4-10.4); Monocytes # 0.6 10^3/uL (0.2-0.9); Monocytes % 6.9 %; Neutrophils # 5.47 10^3/uL (1.8-7.7); Nucleated Red Blood Cells % 0 %; Platelet Count 208 10^3/cmm (157-399); Red Blood Count 4.32 10^6/uL (3.85-5.65); Red Cell Distribution Width 13.2 % (12.1-15.1); White Blood Count 7.93 10^3/uL (3.29-11.43)
[2024-09-03 20:32] LABS: Anion Gap 13.5 (5-19); Blood Urea Nitrogen 12 mg/dL (6-20); Calcium 8.6 mg/dL (8.5-10.5); Carbon Dioxide 25 mmol/L (22-29); Chloride 105 mmol/L (98-107); Creatinine Clr Calc Pharmacy 107.2645; Glomerular Filtration Rate 110.7 mL/min (90-130); Glucose 99 mg/dL (65-115); Osmolality Calculated 290 mOsm/kg (285-295); Potassium 3.5 mmol/L (3.5-5.1); Sodium 140 mmol/L (136-145)
[2024-09-03 20:52] VITALS: BP 121/95; PULSE 98; O2SAT 100
== END 2024-09-03 20:53 | disposition home or self-care (01) ==
PROVIDERS: Emergency Provider Emergency Medicine; PCP Nurse Practitioner
DX: N39.0 Urinary tract infection, site not specified (principal); N93.8 Other specified abnormal uterine and vaginal bleeding
CPT/HCPCS: 36415; 80048; 81001; 85025; 87077; 87086; 87186; 96372; 99284; J0696

== ENCOUNTER 2024-09-26 14:08 | Outpatient (CLI) | payer MEDICAID, SELFPAY ==
[2024-09-26 15:37] LABS: Basophils % 0.3 %; Eosinophils # 0.1 10^3/uL (0.0-0.8); Eosinophils % 1.4 %; Hematocrit 41.9 % (36-47); Lymphocytes # 2.1 10^3/uL (0.8-4.8); Lymphocytes % 21.7 %; Mean Corpuscular HGB Conc 31.3 g/dL (30-55); Mean Corpuscular Hemoglobin 29.6 pg (27-33); Mean Corpuscular Volume 94.8 fl (85-98); Mean Platelet Volume 10.5 fL (7.4-10.4); Monocytes # 0.6 10^3/uL (0.2-0.9); Neutrophils # 6.64 10^3/uL (1.8-7.7); Neutrophils % 70.4 %; Nucleated Red Blood Cells % 0 %; Platelet Count 256 10^3/cmm (157-399); Red Blood Count 4.42 10^6/uL (3.85-5.65); Red Cell Distribution Width 13.5 % (12.1-15.1); White Blood Count 9.44 10^3/uL (3.29-11.43)
[2024-09-26 15:55] LABS: Albumin Level 3.8 g/dL (3.5-5.2); Alkaline Phosphatase 106 U/L (35-105); Blood Urea Nitrogen 10 mg/dL (6-20); Calcium 8.9 mg/dL (8.5-10.5); Carbon Dioxide 26 mmol/L (22-29); Chloride 103 mmol/L (98-107); Globulin 2.9 g/dL (1.3-4.6); Glomerular Filtration Rate 92.7 mL/min (90-130); Glucose 93 mg/dL (65-115); Osmolality Calculated 285 mOsm/kg (285-295); Sodium 138 mmol/L (136-145); Total Bilirubin 0.3 mg/dL (0.15-1.2); Total Protein 6.7 g/dL (6.6-8.7)
[2024-09-26 16:00] LABS: Alanine Aminotransferase 7 U/L (0-33); Anion Gap 13.3 (5-19); Aspartate Amino Transferase 22 U/L (0-32); Potassium 4.3 mmol/L (3.5-5.1)
== END 2024-09-26 14:09 | disposition home or self-care (01) ==
LOC: LAB 14:09
PROVIDERS: PCP Nurse Practitioner; Visit Provider Family Medicine
DX: Z01.818 Encounter for other preprocedural examination (principal)
CPT/HCPCS: 80053; 81003; 85025; 87086

== ENCOUNTER 2024-10-13 13:05 | Emergency (ER) | payer MEDICAID, SELFPAY ==
[2024-10-13 13:10] VITALS: BP 121/72; PULSE 111; RESP 15; TEMP 36.9; O2SAT 95; BMI 29.2
--- NOTE | 2024-10-13 13:42 | XR_ITS ---
WS: [id number] Exam: XR ankle RT min 3V* [id number] Date/Time of Exam: 10/13/2024 1:43 PM Reason For Exam: Ankle pain Comparison 04/13/2012. No fracture or dislocation. The ankle mortise is intact. Normal soft tissues. XR/XR ankle RT min 3V* [id number] IMPRESSION: 1. Normal RIGHT ankle.
--- NOTE | 2024-10-13 13:54 | ED_ITS ---
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 She has swelling laterally with some forming ecchymosis. She was able to partially bear weight on her right foot. Did denies any other injuries Related Data Home Medications Medication Instructions Recorded Confirmed gabapentin 300 mg capsule 1,200 mg PO .qhs 09/26/24 09/26/24 Previous Rx's Medication Instructions Recorded diclofenac sodium 75 mg 75 mg PO Q12H PRN pain #20 tabs 10/13/24 tablet,delayed release Allergies Allergy/AdvReac Type Severity Reaction Status Date / Time albuterol Allergy ALGY-Difficulty Verified 09/26/24 11:39 Breathing divalproex sodium Allergy Unconscious Verified 09/26/24 11:39 [facility]: Medical History No pertinent past medical history Social History Smoking and tobacco/nicotine status: current every day tobacco/nicotine user Second hand smoke exposure: No Alcohol intake: current Substance/Drug Use: current Substance/Drug use frequency: few times a week Physical Exam Extremity: OTHER: Examination of the right ankle swelling of the lateral malleolus inferiorly. Do rsalis pedis posterior tibialis pulse intact sensation lower extremities normal at the sole patient has numbness along the first second and third toes but this been present for 3 months and is not new Course Vital Signs: Vital signs: Vital Signs Temperature 98.4 F 10/13/24 13:10 Pulse Rate 71 10/13/24 14:20 Respiratory Rate 15 10/13/24 13:10 Blood Pressure 115/73 10/13/24 14:20 Pulse Oximetry 98 10/13/24 14:20 Oxygen Delivery Me thod Room Air 10/13/24 13:10 MDM - Extremity (Nontraumatic) Medical Decision Making Negative x-rays. Rest ice elevate anti-inflammatories as needed can use crutches nonweightbearing as tolerated follow-up with primary care if not improving may need referral to podiatry or orthopedics Lab Data Radiology Impressions Ankle X-Ray 10/13/24 13:42 IMPRESSION: 1. Normal RIGHT ankle. All radiology interpretation(s) finalized by discharge Discharge Plan Discharge Patient Disposition: Home Clinical Impression: Sprain of ankle, right Condition: Stable Prescriptions: New diclofenac sodium 75 mg tablet,delayed release (DR/EC) 75 mg PO Q12H PRN (Reason: pain) Qty: 20 0RF No Action gabapentin 300 mg capsule 1,200 mg PO .qhs Discharge Orders: Discharge ED (Routine); Ordered 10/13/24 Ordered By: Garret Finch Referrals: Tommy Villalobos FNP [Primary Care Provider] - Discharge Diet: Usual diet Discharge Activity: Resume usual activity Patient Instructions: Opioid Safety, Pain Management Activity Restrictions/Additional Instructions: Thank you for choosing [facility] for your healthcare needs today. It is very important that you follow up as instructed or that you return to the E mergency Department should you have concerns or if your condition changes or worsens in any way. You are seen today after a right ankle sprain. Weightbearing as tolerated ice elevate you are given diclofenac to use as needed for discomfort and swelling if not improving follow-up your primary care doctor they can reevaluate. X-rays done in the emergency room did not show any acute fracture Coding Level of Care Code ED Plant Reliability Engineer for Joey Gay
[2024-10-13 14:20] VITALS: BP 115/73; PULSE 71; O2SAT 98
== END 2024-10-13 14:21 | disposition home or self-care (01) ==
PROVIDERS: Emergency Provider Family Medicine; PCP Nurse Practitioner
DX: S93.401A Sprain of unspecified ligament of right ankle, initial encounter (principal); W22.8XXA Striking against or struck by other objects, initial encounter
CPT/HCPCS: 73610; 99283; E0114

== ENCOUNTER 2024-10-15 09:44 | Observation (INO) | payer MEDICAID, SELFPAY ==
[2024-10-15] VITALS (16 sets, daily range): BP systolic 98–131; BP diastolic 62–97; PULSE 64–94; RESP 14–19; TEMP 35.7–37.2; O2SAT 94–100; BMI 29.2; BMI 33.7
--- NOTE | 2024-10-15 | XR_ITS ---
WS: [id number] Exam: XR lumbar spine 2-3V* [id number] Date/Time of Exam: 10/15/2024 12:00 AM Reason For Exam: SILVERIO PICS Intraoperative lateral and AP C-arm images of the lower lumbar spine are submitted. Images were obtai glendy for intraoperative visualization purposes.
--- NOTE | 2024-10-15 05:46 | ANES.PREANE2 ---
Pre-Anesthetic Assessment Height/Weight: Height 5 ft Preop Diagnosis: Spinal stenosis Operation Date: 10/15/24 07:00 Proposed Procedures p Spinal Fusion PSF(Not Applicable) - Branden Nolasco DO s Posterior Lumbar Interbody Fusion PLIF(Not Applicable) - Branden Nolasco DO Was Beta Jacqueline taken within 24 hours: N/A Was Clonidine taken within 24 hours: N/A Social Tobacco and No alcohol Exam alert, oriented x 3, clear to auscultation bilaterally and regular rate & rhythm Airway Submandibular: within normal limits Cervical ROM: within normal limits Mallampati: Class II Dentition: other (Edentulous) Anesthetic Plan ASA status: 2 Anesthesia: General Other: No prior issues with anesthesia NPO since yesterday Grade 1 view with MAC 3 on prior intubation attempt Current smoker Denies any cardiac issues Labs 09/26/2024 reviewed and acceptable for procedure EKG sinus rhythm with mild conduction delay Plan for GETA with possible A-line Medications/Allergies Home Medications Medication Instructions Recorded Confirmed Last Taken Type gabapentin 300 mg capsule 1,200 mg PO .qhs 09/26/24 10/14/24 10/14/24 History Allergies Allergy/AdvReac Type Severity Reaction Status Date / Time albuterol Allergy ALGY-Difficulty Verified 10/14/24 15:05 Breathing divalproex sodium Allergy Unconscious Verified 10/14/24 15:05 [[facility] Anesthesia Medical History No pertinent past medical history Social History Smoking and tobacco/nicotine status: current every day tobacco/nicotine user Second hand smoke exposure: No Alcohol intake: current Substance/Drug Use: current Substance/Drug use frequency: few times a week Female Reproductive History Date of last menstrual period: 10/11/24 Data Anesthesia Cardiac Studies: No Data to Display
--- NOTE | 2024-10-15 06:00 | W.PM.OPSUD ---
Surgery/Procedure H&P Update DATE OF PROCEDURE: October 15, 2024 DATE H&P PERFORMED: 09/26/23 H&P UPDATE INFORMATION: I have reviewed H&P completed within last 30 days, I have examined patient prior to procedure and No changes to prior documentation PLANNED PROCEDURE: Operation Date: 10/15/24 07:00 Proposed Procedures p Spinal Fusion PSF(Not Applicable) - Branden Nolasco DO s Posterior Lumbar Interbody Fusion PLIF(Not Applicable) - Branden Nolasco DO
[2024-10-15] MEDS: sodium chloride 0.9% 1,000 ML 30 ML IV (06:37)
[2024-10-15 06:48] LABS: OR HCG Qualitative Urine Negative (Negative)
[2024-10-15] MEDS: ceFAZolin 2,000 mg SDV 2000 MG IVP ×3 (07:05→23:41)
[2024-10-15] MEDS: heparin, porcine 1,000 unit/mL INJ 10 mL 10000 UNIT IRRIGATION (07:53)
[2024-10-15] MEDS: VANCOMYCIN ADD-Vantage 1,000 MG VIAL 1000 MG IRRIGATION (07:56)
[2024-10-15] MEDS: lidocaine-epi 1% 20 mL INJ INJECTION (07:57)
--- NOTE | 2024-10-15 10:44 | PM.OP ---
Operative Report Date of procedure: October 15, 2024 Pre-op diagnosis: Lumbar stenosis and neurogenic claudication Post-op diagnosis: same Procedure done: 1. L4/5 Interbody fusion with posterolateral fusion 2. L5/S1 interbody fusion with posterolateral fusion 3. Posterior instrumentation L4-S1 4. Insertion of Cage at L4/5 5. Insertion of cage at L5/S1 6. L4-5 laminectomy with facetectomy 7. L5-S1 laminectomy with facetectomy 8. Use of computer navigation stereotactic for spine 9. Bone marrow aspiration from right iliac crest 10. use of autograft from same incision 11. allograft Surgeon: Branden Nolasco DO Estimated blood loss (mL): 50 Procedure: 1. L4/5 Interbody fusion with posterolateral fusion 2. L5/S1 interbody fusion with posterolateral fusion 3. Posterior instrumentation L4-S1 4. Insertion of Cage at L4/5 5. Insertion of cage at L5/S1 6. L4-5 laminectomy with facetectomy 7. L5-S1 laminectomy with facetectomy 8. Use of computer navigation stereotactic for spine 9. Bone marrow aspiration from right iliac crest 10. use of autograft from same incision 11. allograft Patient is brought to the operative suite. After undergoing anesthesia, the patient had neuro monitoring attached. Patient was then placed in the prone position on the Darwin table. All areas of impingement were well-padded. Patient was then prepped and draped in the normal sterile fashion. Skin incision was then made over the L4-S1 disc space. Subperiosteal dissection was made out to the transverse processes of L4 and L5 and S1 bilaterally. The [employer] bone marrow aspirate kit was used to aspirate bone marrow aspirate from right iliac crest. This was done by using the sharp probe to open up the bone. Aspiration was performed and then the blunt probe was then used to dissect down to through the bone tunnel. An aspirating well drawn back a millimeter approximately 20 cc of bone marrow aspirate was used. Admixed with the allograft and autograft bone that will be used. Next and is brought to placing the fiducial. 2 pins were placed into the iliac wing on the right. These pins were removed at the end the case. The fiducial was then attached to these pins. The C-arm was brought in and spun around the patient the information from the serum was then loaded the computer in order to perform the pedicle screw placement using computer navigation. The technique for placing the pedicle screws was to use a drill followed by the gearshift probe linked to computer navigation. Followed by the ball probe to feel the superior inferior medial lateral diaz of the pedicles. Then placement of the screws using the computer navigation. Was done at each pedicle. Screws were placed at L4 bilaterally and L5 bilaterally and S1 bilaterally. Next attention was brought to performing the laminectomy of L4. This was done using the high-speed bur Kerrisons and curettes. Once the lamina was removed and then attention was brought to performing a partial facetectomy on the contralateral side. This was done again using the high-speed bur curettes and Kerrisons. The ligamentum flavum was taken down bilaterally from L4 to L5. Attention was then brought to the facet on the ipsilateral side. The facet was taken down. The L5 nerve was decompressed as it passed around the L5 pedicle. The laminectomy was done for purposes of decompressing the nerve as well as placement of the cage. The L4 nerve was identified as it traversed through the L4/5 foramen. The thecal sac was identified and retracted. The L4/5 disc base was identified. Using a knife the disc base was opened. And then sequential masoud were placed. The first shaver was a 6 and the last shaver 8. using a pituitary and down going curette the endplates were scraped and disc material was removed from the space. Once adequate decompression of the disc base was felt to be had. Osteoamp sponge was packed into the anterior aspect of the disc base. Then a size 9 cage from [employer] was placed after packing osteoamp into the cage. While placing the cage the thecal sac and L5 nerve was protected. C arm was used to ensure that the cages placed in the appropriate position. Next attention was brought to performing the laminectomy ofL5. This was done using the high-speed bur Kerrisons and curettes. Once the lamina was removed and then attention was brought to performing a partial facetectomy on the contralateral side. This was done again using the high-speed bur curettes and Kerrisons. The ligamentum flavum was taken down bilaterally from L5 to S1. Attention was then brought to the facet on the ipsilateral side. The facet was taken down. The S1 nerve was decompressed as it passed around the S1 pedicle. The laminectomy was done for purposes of decompressing the nerve as well as placement of the cage. The L5 nerve was identified as it traversed through the L5/S1 foramen. The thecal sac was identified and retracted. The L5/S1 disc base was identified. Using a knife the disc base was opened. And then sequential masoud were placed. The first shaver was a 6. Using a pituitary and down going curette the endplates were scraped and disc material was removed from the space. Once adequate decompression of the disc base was felt to be had. Osteoamp sponge was packed into the anterior aspect of the disc base. Then a size 7 cage from [employer] was placed after packing osteoamp into the cage. While placing the cage the thecal sac and S1 nerve was protected. C arm was used to ensure that the cages placed in the appropriate position. Attention was then brought to attaching the rods to the screws placed in the L4 bilaterally and L5 bilaterally and S1 bilaterally. Caps were torqued into position. Locking the construct in place. Wound was copiously irrigated and then attention was brought to decorticating the facets and transverse processes laterally. Bone that was taken down from the lamina was used along with osteoamp fibers and sponges were packed into the lateral gutters along the facet joints. This was done bilaterally. Wound was then closed in a layered fashion starting with the thoracolumbar fascia. 0-vicryl was used the sub cutaneous tissue was closed with 2-0 vicryl and skin with 4-0 monocryl. Glue was then used to seal the skin and a steril dressing was applied. Patient was then placed in the supine position. The endotracheal tube was removed and patient was transferred to the PACU in stable condition.
--- NOTE | 2024-10-15 10:45 | PC.NURSE ---
bruising noted under left eye/cheek. Patient reports a shower head hit her recently causing said bruises.
--- NOTE | 2024-10-15 11:18 | ANE.PACU2 ---
Inpatient post-anesthesia follow up: Airway intact: Yes Vital signs: Temperature 97.2 F Pulse Rate 64 Respiratory Rate 18 Blood Pressure 105/62 Pulse Oximetry 96 Oxygen Delivery Me thod Room Air Oxygen Flow Rate 10 Fraction of Inspir ed Oxygen Hydration adequate: Yes Nausea and vomiting: No Pain level: 1 Mental status: Baseline
[2024-10-15] MEDS: ketorolac 30 mg/mL INJ IVP (12:21)
[2024-10-15] MEDS: lactated ringers 1,000 ML 90 ML IV ×2 (12:21→23:41)
[2024-10-15] MEDS: HYDROcodone-acetaminophen 5-325 mg Tablet PO ×2 (15:15→20:48)
[2024-10-15] MEDS: morphine 4 mg/mL SDV 1 mL 2 MG IVP (16:50)
[2024-10-15] MEDS: docusate sodium 100 mg Capsule PO (16:50)
[2024-10-15] MEDS: acetaminophen 325 mg Tablet 650 MG PO (16:51)
[2024-10-15] MEDS: gabapentin 300 mg Capsule 1200 MG PO (20:31)
[2024-10-16 04:00] VITALS: BP 90/60; PULSE 101; RESP 20; TEMP 37.1; O2SAT 96
[2024-10-16] MEDS: HYDROcodone-acetaminophen 5-325 mg Tablet PO ×2 (04:06→09:27)
[2024-10-16] MEDS: ceFAZolin 2,000 mg SDV 2000 MG IVP (06:31)
[2024-10-16 07:12] VITALS: BP 128/97; PULSE 86; RESP 16; TEMP 36.8; O2SAT 97
--- NOTE | 2024-10-16 08:03 | PM.DCS ---
Discharge Providers Date of Admission: 10/15/24 09:44 Date of Discharge: October 16, 2024 Attending Provider at Admission: Branden Nolasco DO Attending Provider at Discharge: Branden Nolasco DO Primary Care Provider: THOM Montez Reason for Visit Reason for Visit: M48.06 Physical Exam Narrative: Pain controlled no complaints we will get her up with physical therapy before discharge Urinary Catheter Management: Braxton: Cath Placed During This Visit: yes, but has since been removed by the nurse Reason for Continuing Indwelling Catheter: Perioperative Use in Selected Surgeries Urinary Catheter Date of Insertion: 10/15/24 Urinary Catheter Time of Insertion: 07:20 Date Urinary Catheter Removed: 10/16/24 Time Urinary Catheter Discontinued: 07:32 Discharge Data Studies Completed and Pending Pending at discharge Category Date Time Status C-arm Fluoroscopy 06024 Routine Exams 10/15/24 06:00 Taken Laboratory Results Urine HCG, Qual Negative (Negative) 10/15/24 06:46 Blood Type B Negative 10/15/24 07:15 Rho(D) Type Rh negative 10/15/24 07:15 Antibody Screen Negative 10/15/24 07:15 Vitals Last Vital Signs Temp 98.3 F 10/16/24 07:12 Pulse 86 10/16/24 07:12 Resp 16 10/16/24 07:12 BP 128/97 10/16/24 07:12 Pulse Ox 97 10/16/24 07:12 O2 Del Method Room Air 10/16/24 07:12 O2 Flow Rate 10 10/15/24 10:53 Discharge Plan Discharge Patient Disposition: Home Condition: Stable Prescriptions: New hydrocodone-acetaminophen 5-325 mg tablet 1 - 2 tab PO .Q4-6H Qty: 40 0RF Continued gabapentin 300 mg capsule 1,200 mg PO .qhs Discharge Orders: Discharge Order (Routine); Ordered 10/16/24 Ordered By: Branden Nolasco Referrals: Branden Nolasco DO [Physician] - Discharge Diet: Advance as tolerated Discharge Activity: Limit activity as instructed Patient Instructions: Acute Wound Care (DC), Opioid Safety, Post Anesthesia Care Activity Restrictions/Additional Instructions: Thank you for [facility] for your care! The following is a list of instructions, from your provider, to follow upon your discharge to ensure you have the optimal recovery from your recent injury orsurgery. Follow-up care is a le part of your treatment and safety. Be sure to make and go to all appointments, and call your doctor if you are having problems. If you do not already have a follow-up appointment made, call Dr. Nolasco office in the next 1-3 days to make follow up appointment for 1 weeks at [phone]. It is also a good idea to know your test results and keep a list of the medicines you take. Medications will be prescribed for you at your provider's discretion. These medications are to be used as instructed; if they are taken more often that prescribed they will not be refilled early and in most cases will not be refilled at all. > When a refill is needed,you should contact [facility] 2-3 business days before your prescription runs out. Medications will NOT be refilled by orthopedic shoes salesperson providers after hours! > Many pain medications contain Tylenol (Acetaminophen). Do not consume more than 4,000 mg of Tylenol per day in total with any combination ofmedications. > Pain medications can cause constipation. Please use an over the counter stool softener as directed, while taking pain medications. Consulty our local pharmacist with questions or recommendations on stool softeners. If constipation persists, contact our office or your primary care provider. > While under our care,you are not to receive pain medications or other controlled substances from any other provider unless our office is notified and approves. Any attempts to do so will result in refusal to prescribe any further pain medications and possible dismissal from our practice. ? Follow-up in 1 week in clinic we will change her dressing in the clinic. ? Showering is permitted, however we ask that you do not take a bath, sit in a whirlpool / Jacuzzi, or go swimming for 1 month. For only the first 2 days after surgery, lt wilt be necessary for you to cover your wound/dressing with plastic and tape to keep it dry. ? Walking is essential for the healing process after surgery. We would like you to slowly advance your walking. This should be done on relatively flat clear ground (inside or out) or can be done on a treadmill. Remember this goal does not have to happen all at once, slowly increase your distance and duration. This can be broken into more more than one walk per day as tolerated. Patients who walk as directed after surgery rarely require Physical Therapy. In the unlikely event this issue arises your provider will direct hospital staff to make the appropriate arrangements. ? No lifting over 5 pounds {a gallon of milk) or bending/twisting until further notice. Each of these activities places an unnecessary amount of stress onto the body and can impede the delicate healing process. > Instead of bending at the waist, keep your back straight and bend at the knees. > Instead of twisting your torso, keep your back straight and turn your entire body with your feet. ? You may sleep in any position which makes you comfortable. Many patients find comfort sleeping in a reclining chair. It is not abnormal to have difficulty sleeping for the first several weeks following your surgery. We recommend trying Benadry! or Tylenol PM as directed to help with your sleeping difficulties. Both medications are over the counter and available withoutprescription. ? NO SMOKING!!! Smoking dramatically increases the probability of developing postoperative wound infections. ? Common complaints after lumbar and/or thoracic spine surgery include, but are not limited to: numbness and/or tingling in the legs, pain around the incision and surrounding tissues, muscle spasms, or stiffness of the middle to low back. Contact our office if these symptoms persist or if an acute change occurs. ? No driving for the first 3-5days, and not while taking narcotics [] until seen at your follow-up appointment and cleared. There are no restrictions for riding on short trips, however if you take a longer trip, arrangements should be made to make regular stops to get out of the vehicle and stretch . ? Swelling is an unfortunate event that will take place with any surgery and is the primary source of your postoperative discomfort. While walking and regular approved activities helps control inflammation, there are additional steps you can take to minimizeswelling. > Place ice over the surgical site and surrounding tissue for twenty minutes, followed by applying a low/medium heat (heating pad) for an additional twenty minutes every 1-2 hours as needed for painrelief. > You may use of over the counter anti-inflammatory medications (Ibuprofen, Motrin, Aleve, Advil, etc) as directed on the package label. These types of medicines wm significantly reduce the amount of discomfort you experience after surgery from swelling. It should be noted that if you have and allergy to any of these medications, or a history of ulcers or kidney disease you should consult you primary care provider prior to starting these medications. Discharge Attestations Time Spent in Discharge Care*: less than 30 min Quality Metrics Clinical Quality Measures [ No reported AMI, CVA or VTE this stay] Coding Level of Care Code Acute Code for Chg Deidra
[2024-10-16] MEDS: docusate sodium 100 mg Capsule PO (08:05)
[2024-10-16 11:12] VITALS: BP 109/74; PULSE 88; RESP 16; TEMP 36.7; O2SAT 99
--- NOTE | 2024-10-16 11:44 | PC.SOCIAL ---
Walker Order. Pt has d/c orders in & has an order in for a walker. Followed up with pt. She said she is okay with using [facility]. A choice letter filled out & placed in chart. Faxed walker order & cyber access precert to HOME. Pre-Cert number assigned: [id number] Notified [facility] via Web[employer] & asked that they bring pt's walker over. Family at pt's bedside. No other needs noted for CM.
[2024-10-16 12:59] VITALS: BP 109/74; PULSE 88; O2SAT 99
== END 2024-10-16 13:00 | disposition home or self-care (01) ==
LOC: MEDSURG 09:44
PROVIDERS: Student in an Organized Health Care Education/Training Program; Admitting Provider Orthopaedic Surgery; PCP Nurse Practitioner; Visit Provider Orthopaedic Surgery
PROC: (CPT 20930; principal; 2024-10-15 07:00)
PROC: (CPT 22612; 2024-10-15 07:00)
DX: M48.062 Spinal stenosis, lumbar region with neurogenic claudication (principal); F17.200 Nicotine dependence, unspecified, uncomplicated
CPT/HCPCS: 20930; 20936; 20939; 22633; 22634; 22842; 22853 ×2; 61783; 63052; 63053; 36415; 51702; 72100; 76000; 81025; 86850; 86900; 97116; 97161; C1713; C9359; G0378; J0131; J0690; J1100; J1171; J1644; J1885; J2250; J2270; J2371; J2405; J2704; J3010; J3370; J3490; J7030; J7120

== ENCOUNTER 2024-11-04 21:23 | Emergency (ER) | payer MEDICAID, SELFPAY ==
[2024-11-04 21:30] VITALS: BP 144/97; PULSE 97; RESP 16; TEMP 36.7; O2SAT 100
--- NOTE | 2024-11-04 21:39 | W.ED.BACK ---
HPI - Back Pain/Injury General: Chief Complaint: Back Pain/Injury Stated Complaint: infection on back Time Seen by Provider: 11/04/24 21:34 Source: patient and family Mode of arrival: ambulatory Limitations: no limitations History of Present Illness: Patient is a 39-year-old female presents to ED today along with family for concerns regarding her back surgical incision. Patient underwent back surgery by Dr. Nolasco 20 days ago (DOS 10/15). Procedure performed below: Procedure done: 1. L4/5 Interbody fusion with posterolateral fusion 2. L5/S1 interbody fusion with posterolateral fusion 3. Posterior instrumentation L4-S1 4. Insertion of Cage at L4/5 5. Insertion of cage at L5/S1 6. L4-5 laminectomy with facetectomy 7. L5-S1 laminectomy with facetectomy 8. Use of computer navigation stereotactic for spine 9. Bone marrow aspiration from right iliac crest 10. use of autograft from same incision 11. allograft Patient states since the surgery she has been doing really well. Her pain has been controlled. Her mobility is good. She states 2 days ago she accidentally slipped in some mud and landed on her knees. Back was not exposed to the mud. She felt like during the slip that her wound had maybe dehisced. She states she was given permission to remove her surgical bandage. She states her family member did this and was concerned for possible infection as there was some drainage and they were concerned about possible dehiscence on the inferior end of the wound. MD elicited complaint: other (surgical incision concern) Pertinent past history: back surgery Radiation: none Exacerbating factors: none Relieving factors: none Associated symptoms: Deny chills, difficulty walking, fatigue or fever(s) Work related injury: No Related Data Home Medications Medication Instructions Recorded Confirmed gabapentin 300 mg capsule 1,200 mg PO .qhs 09/26/24 10/14/24 Previous Rx's Medication Instructions Recorded Bone Growth Stimulator #1 ea 10/20/24 hydrocodone 5 mg-acetaminophen 325 1 - 2 tab PO .Q4-6H 7 days #40 tabs 11/03/24 mg tablet Allergies Allergy/AdvReac Type Severity Reaction Status Date / Time albuterol Allergy ALGY-Difficulty Verified 10/21/24 18:30 Breathing divalproex sodium Allergy Unconscious Verified 10/21/24 18:30 [facility] Review of Systems Const: Denies: fever(s), chills, body aches, fatigue or malaise Musc: Reports: back pain (improving since surgery); Denies: extremity pain or extremity swelling Neuro: Denies: numbness in extremities, weakness in extremities, sensory changes or difficulty walking PFSH ED PFSH: Medical History No pertinent past medical history Social History Smoking and tobacco/nicotine status: current every day tobacco/nicotine user Second hand smoke exposure: No Alcohol intake: current Substance/Drug Use: current Substance/Drug use frequency: few times a week Physical Exam Const: COMMON NORMALS: no acute distress, average body habitus, no limitations, alert and well nourished Back/Pelvis: COMMON NORMALS: no thoracic nor lumbar tenderness, thoraco-lumbar ROM normal and straight leg raise negative bilaterally OTHER: pts lumbar incision with intact [id number] are 3 weeks old and ready for removal-removed a few that were barely attached-will leave remainder for her follow up visit in 2 days; she has absolutely no erythema to the wound; there is no drainage that I can see; no odor; inferior wound edge has some visualized granulation tissue present but no significant dehiscence noted; overall wound looks like it is healing post op 3 weeks Extremity: GENERAL: Yes normal exam except as noted Neuro: COMMON NORMALS: moves all extremities, no focal motor deficits, no sensory deficits noted and gait normal SENSORIUM/ORIENTATION: Yes alert Skin: NARRATIVE SKIN EXAM: see back examination above Course Vital Signs: Vital signs: Vital Signs Temperature 98.1 F 11/04/24 21:30 Pulse Rate 99 11/04/24 21:42 Respiratory Rate 16 11/04/24 21:42 Blood Pressure 144/97 11/04/24 21:42 Pulse Oximetry 100 11/04/24 21:42 Oxygen Delivery Me thod Room Air 11/04/24 21:42 MDM - Back Pain/Injury Medical Decision Making Patient back surgery was approximately 20 days ago. Clinically I do not have any concern for infection regarding her incision. It looks really well 3 weeks postop. She is not having any systemic complaints. She feels like she has continued to improve since the surgery. She has follow-up with Dr. Nolasco scheduled on . Return ED precautions given. Otherwise instructions for continued wound care were discussed. Medical Records I reviewed the patient's medical records. No radiology studies performed this visit Discharge Plan Discharge Patient Disposition: Home Clinical Impression: Problem involving surgical incision Condition: Stable Prescriptions: No Action gabapentin 300 mg capsule 1,200 mg PO .qhs (DME) Bone Growth Stimulator See Rx Instructions .Route .MEDSUPPLY Qty: 1 0RF Rx Instructions: As directed hydrocodone-acetaminophen 5-325 mg tablet 1 - 2 tab PO .Q4-6H 7 Days Qty: 40 0RF Discharge Orders: Discharge ED (Routine); Ordered 11/04/24 Ordered By: Denise Raza Referrals: Tommy Villalobos, TEENAGE PROGRAM DIRECTOR [Primary Care Provider] - Activity Restrictions/Additional Instructions: As we discussed, your surgical incision overall appears very well. I do not see any evidence for infection. Continue to keep clean with warm soap and water. Please follow-up with Dr. Nolasco on as scheduled. Coding Level of Care Code ED Vehicle Leasing And Rental Manager for Joey Gay
[2024-11-04 21:42] VITALS: BP 144/97; PULSE 99; RESP 16; O2SAT 100
[2024-11-04 22:27] VITALS: BP 145/93; PULSE 105; O2SAT 100
== END 2024-11-04 22:33 | disposition home or self-care (01) ==
PROVIDERS: Emergency Provider Physician Assistant; PCP Nurse Practitioner
DX: T81.31XA Disruption of external operation (surgical) wound, not elsewhere classified, initial encounter (principal); Z72.0 Tobacco use; X58.XXXA Exposure to other specified factors, initial encounter
CPT/HCPCS: 99281

== ENCOUNTER → 2024-11-13 15:45 | Outpatient (BNVA) | payer MEDICAID, SELFPAY | PROVIDERS: PCP Nurse Practitioner; Visit Provider Orthopaedic Surgery | DX: Z98.1 Arthrodesis status (principal) | CPT/HCPCS: 99024 ==

== ENCOUNTER 2024-11-25 20:34 | Emergency (ER) | payer MEDICAID, SELFPAY ==
[2024-11-25 20:45] VITALS: BP 121/87; PULSE 95; RESP 14; TEMP 36.8; O2SAT 100; BMI 29.2
--- NOTE | 2024-11-25 21:08 | ED_ITS ---
HPI - Wound/Laceration General: Chief Complaint: Wound/Laceration Stated Complaint: back surgery/cut on back has opened up Time Seen by Provider: 11/25/24 21:08 History of Present Illness: Patient had lumbar spinal surgery on 1210, about 5 weeks ago. She says today the bottom of her wound opened up. On exam superficial part of the wound is open it appears the proper wound has been open for some time now. No redness. No bleeding. No drainage. No neurologic symptoms. No fever Related Data Home Medications Medication Instructions Recorded Confirmed gabapentin 300 mg capsule 1,200 mg PO .qhs 09/26/24 11/13/24 Previous Rx's Medication Instructions Recorded Bone Growth Stimulator #1 ea 10/20/24 hydrocodone 5 mg-acetaminophen 325 1 - 2 tab PO .Q4-6H 7 days #40 tabs 11/03/24 mg tablet sulfamethoxazole 800 1 tab PO BID 10 days #20 tabs 11/06/24 mg-trimethoprim 160 mg tablet (Bactrim DS) cephalexin 500 mg capsule 500 mg PO BID 10 days #20 caps 11/25/24 Allergies Allergy/AdvReac Type Severity Reaction Status Date / Time albuterol Allergy ALGY-Difficulty Verified 11/25/24 20:51 Breathing divalproex sodium Allergy Unconscious Verified 11/25/24 20:51 [From [facility]] Review of Systems Narrative: Constitutional symptoms: Negative except as documented in HPI. Skin symptoms: Negative except as documented in HPI. Eye symptoms: Negative except as documented in HPI. ENMT symptoms: Negative except as documented in HPI. Respiratory symptoms: Negative except as documented in HPI. Cardiovascular symptoms: Negative except as documented in HPI. Gastrointestinal symptoms: Negative except as documented in HPI. Genitourinary symptoms: Negative except as documented in HPI. Musculoskeletal symptoms: Negative except as documented in HPI. Neurologic symptoms: Negative except as documented in HPI. Psychiatric symptoms: Negative except as documented in HPI. Endocrine symptoms: Negative except as documented in HPI. PFSH ED PFSH: Medical History No pertinent past medical history Social History Smoking and tobacco/nicotine status: current every day tobacco/nicotine user Second hand smoke exposure: No Alcohol intake: current Substance/Drug Use: current Substance/Drug use frequency: few times a week Female Reproductive History: Date of last menstrual period: 11/05/24 Physical Exam Narrative: EXAM NARRATIVE: General: Alert, no acute distress. Skin: warm and dry. There is a superficial dehiscence of the wound both supe riorly and inferiorly. There does not appear to be any active infected drainage. No surrounding warmth or redness. Head: Normocephalic Neck: Trachea midline Eye: Extraocular movements are intact. Ears, nose, mouth and throat: Oral mucosa moist Respiratory: Respirations are non-labored Musculoskeletal: Normal ROM Neurological: Alert and oriented, No focal neurological deficit observed. Psychiatric: Cooperative, appropriate mood & affect. Course Vital Signs: Vital signs: Vital Signs Temperature 98.2 F 11/25/24 20:45 Pulse Rate 95 11/25/24 20:45 Respiratory Rate 14 11/25/24 20:45 Blood Pressure 121/87 11/25/24 20:45 Pulse Oximetry 100 11/25/24 20:45 Oxygen Delivery Me thod Room Air 11/25/24 20:45 MDM - Wound/Laceration Medical Decision Making Consultation: I spoke with Dr. Nolasco who reviewed images of the wounds. He agrees with antibiotics and recommends wet-to-dry dressings twice daily. Assessment and plan: Wound dehiscence ?Dressing placed here in the emergency room. - Discharged home - Discussed plan with patient. Answered any questions. - Evaluation and treatment of this problem were appropriate in the emergency setting. No radiology studies performed this visit Discharge Plan Discharge Patient Disposition: Home Clinical Impression: Wound dehiscence Condition: Stable Prescriptions: New cephalexin 500 mg capsule 500 mg PO BID 10 Days Qty: 20 0RF No Action sulfamethoxazole-trimethoprim [Bactrim DS] 800-160 mg tablet 1 tab PO BID MDD 2 10 Days Qty: 20 0RF gabapentin 300 mg capsule 1,200 mg PO .qhs (DME) Bone Growth Stimulator See Rx Instructions .Route .MEDSUPPLY Qty: 1 0RF Rx Instructions: As directed hydrocodone-acetaminophen 5-325 mg tablet 1 - 2 tab PO .Q4-6H 7 Days Qty: 40 0RF Discharge Orders: Discharge ED (Routine); Ordered 11/25/24 Ordered By: Dulce Maria Calhoun Referrals: Branden Nolasco DO [Physician] - 4-7 days (Call for follow-up appointment with Dr. Nolasco. Wet-to-dry dressing changes twice daily.) Tommy Villalobos, APARTMENT ASSISTANT MANAGER [Primary Care Provider] - Discharge Diet: Usual diet Patient Instructions: Wound Dehiscence (ED), Opioid Safety, Pain Management Activity Restrictions/Additional Instructions: Thank you for choosing [facility] for your healthcare needs today. Please realize this is an emergency room and that we are providing you with a medical screening exam and this may not be complete and all inclusive of all the testing and or work up that you may need to determine your ailment or severity of your illness. You have been screened and evaluated and felt safe for discharge. Health conditions do change or evolve sometimes and as such it is important that you follow up with your Primary Doctor to be re checked, 3-5 days is a general good time frame for follow up. You are always welcome to return to the ED for re assessment if your symptoms are worsening or you have new concerns Coding Level of Care Code ED Friction Saw Operator for Joey Gay
== END 2024-11-25 21:35 | disposition home or self-care (01) ==
PROVIDERS: Emergency Provider Emergency Medicine; PCP Nurse Practitioner
DX: T83.81XA Embolism due to genitourinary prosthetic devices, implants and grafts, initial encounter (principal); X58.XXXA Exposure to other specified factors, initial encounter
CPT/HCPCS: 99283

== ENCOUNTER 2024-12-02 07:13 | Emergency (ER) | payer MEDICAID, SELFPAY ==
[2024-12-02 07:21] VITALS: BP 137/91; PULSE 118; RESP 16; TEMP 36.8; O2SAT 98; BMI 29.2
--- NOTE | 2024-12-02 07:37 | XR_ITS ---
WS: [id number] Exam: XR ankle RT min 3V* [id number] Date/Time of Exam: 12/02/2024 7:42 AM Reason For Exam: fall Findings: No fracture or dislocation. Unremarkable soft tissues. The ankle mortise is equidistant. XR/XR ankle RT min 3V* [id number] IMPRESSION: Negative RIGHT ankle.
--- NOTE | 2024-12-02 07:37 | ED_ITS ---
HPI - Fall 2 General: Chief Complaint: Fall Stated Complaint: fall Time Seen by Provider: 12/02/24 07:22 History of Present Illness: Mireya is a 39-year-old female with history of recent lumbar surgery who presents today after a fall. She states that due to her lumbar stenosis she has had right leg numbness and hide she was going down the stairs on her porch this morning her right foot caught the edge of the step and she tripped and landed on her right leg. She states that pain is worse over her patella but she is also having pain over her hip and her lateral ankle. Was wearing pants when she fell. She denies any skin defects or lacerations over that leg. Denies hitting her head or loss of consciousness. She is currently on day 3 of Keflex for wound dehiscence at the surgical site over her lumbar spine. She reportedly failed Bactrim prior to this. She reports small amount of yellow-greenish drainage from the incision site and continued tenderness around the incisions that have not been improving with Keflex. She does have a follow-up with her orthopedic surgeon this afternoon. Denies fevers/chills. Associated symptoms-after fall: Denies abdominal pain or chest pain Related Data Home Medications ?Medication ?Instructions ?Recorded ?Confirmed gabapentin 300 mg capsule 1,200 mg PO .qhs 09/26/24 naloxone 4 mg/actuation nasal See Rx Instructions .Rou te .COMPLEX 12/02/24 12/02/24 spray (Narcan) Previous Rx's ?Medication ?Instructions ?Recorded Bone Growth Stimulator #1 ea 10/20/24 Allergies Allergy/AdvReac Type Severity Reaction Status Date / Time albuterol Allergy ALGY-Difficulty Verified 11/25/24 20:51 Breathing divalproex sodium (From Allergy Unconscious Verified 11/25/24 20:51 Depakote) Review of Systems 2 Card: Denies: chest pain Resp: Denies: dyspnea GI: Denies: abdominal pain or vomiting Musc: Reports: back pain (Located around the surgical incision sites ) PFSH ED 2 PFSH: Medical History No pertinent past medical history Social History Smoking and tobacco/nicotine status: current every day tobacco/nicotine user Second hand smoke exposure: No Alcohol intake: current Substance/Drug Use: current Substance/Drug use frequency: few times a week Physical Exam 2 Const: COMMON NORMALS: no acute distress, patient oriented x3 and healthy appearing GENERAL APPEARANCE: cooperative and comfortable HENMT: COMMON NORMALS: normocephalic and atraumatic HEAD & SCALP: n ormocephalic and atraumatic Eye: COMMON NORMALS: EOMs intact bilaterally and conjunctivae normal C ONJUNCTIVA: Yes conjunctivae normal Resp: COMMON NORMALS: normal respiratory effort and clear to auscultation bilaterally AUSCULTATION: clear to auscultation bilaterally Cardio: COMMON NORMALS: regular rate, regular rhythm, S1 normal heart sound present, S2 normal heart sound present and No murmurs present (Cardio) RATE: regular rate RHYTHM: regular rhythm HEART SOUNDS: S1 normal heart sound present and S2 normal heart sound present GI: COMMON NORMALS: Normal to inspection, nondistended, normoactive bowel sounds present, Soft to palpation and non-tender PALPATION: Yes Soft to palpation Back/Pelvis: OTHER: Both incision sites present over the lumbar spine were open but superficial with some healthy granulation tissue present. She did have a small amount of yellowish discharge present from both sides. Tender to palpation along the border of these incisions and some induration present. There is no significant erythema present Extremity: NARRATIVE EXTREMITY EXAM: Tender to palpation over the lateral malleolus, medial malleolus is nontender. Does have an effusion present over the lower lateral aspect of the knee. Mild diffuse tenderness present over the entire knee but worse over the lateral aspect and quads. Strength with flexion extension at the knee and at the ankle is intact and mildly limited by pain. Pain to palpation over the greater trochanter and the superior iliac crest. No ecchymoses or skin defects present over the entire leg. Neuro: COMMON NORMALS: patient oriented x3 Course 2 Vital Signs: Vital signs: Vital Signs Temperature 98.3 F 12/02/24 07:21 Pulse Rate 118 H 12/02/24 07:21 Respiratory Rate 16 12/02/24 07:21 Blood Pressure 137/91 12/02/24 07:21 Pulse Oximetry 98 12/02/24 07:21 Oxygen Delivery Me thod Room Air 12/02/24 07:21 MDM - Fall Medical Decision Making Mireya is a 39-year-old female with history of recent lumbar surgery who presents today after a fall. Fall was related to the numbness in her right leg and was not associated with altered mental status or loss of consciousness. X- rays were obtained of her right knee, right ankle, and right hip which were all negative for fracture or any other acute abnormalities. She most likely has a sprain in her right ankle and also has a mild effusion over her right lateral knee. Recommended rest supportive measures at home as needed. Discussed return precautions if her pain and swelling fail to improve over the next several days. Patient's surgical incision sites were examined and appear to be healing with healthy granulation tissue present. There continues to be tenderness and small amount of yellowish discharge from the incision sites. We recommended continuing her prescribed Keflex and being sure to keep her appointment this afternoon with her orthopedic surgeon. We did obtain a CBC and CRP were normal. Patient amenable to this plan and was discharged home in stable condition. Lab Data 12/02/24 08:38 Radiology Impressions Ankle X-Ray 12/02/24 07:37 IMPRESSION: Negative RIGHT ankle. Hip/Pelvis X-Ray 12/02/24 07:37 IMPRESSION: 1. Normal RIGHT hip. Knee X-Ray 12/02/24 07:37 IMPRESSION: 1. Normal RIGHT knee. Laboratory Results WBC 7.05 10^3/uL (3.29-11.43) 12/02/24 08:38 RBC 4.10 10^6/uL (3.85-5.65) 12/02/24 08:38 Hgb 11.30 g/dL (11.27-16.99) 12/02/24 08:38 Hct 38.1 % (36-47) 12/02/24 08:38 MCV 92.9 fl (85-98) 12/02/24 08:38 MCH 27.6 pg (27-33) 12/02/24 08:38 MCHC 29.7 g/dL (30-55) L 12/02/24 08:38 RDW 16.0 % (12.1-15.1) H 12/02/24 08:38 Plt Count 187 10^3/cmm (157-399) 12/02/24 08:38 MPV 11.0 fL (7.4-10.4) H 12/02/24 08:38 Neut % (Auto) 68.9 % 12/02/24 08:38 Lymph % (Auto) 19.3 % 12/02/24 08:38 Calvert % (Auto) 9.1 % 12/02/24 08:38 Eos % (Auto) 2.0 % 12/02/24 08:38 Baso % (Auto) 0.4 % 12/02/24 08:38 Neut # (Auto) 4.86 10^3/uL (1.8-7.7) 12/02/24 08:38 Lymph # (Auto) 1.4 10^3/uL (0.8-4.8) 12/02/24 08:38 Calvert # (Auto) 0.6 10^3/uL (0.2-0.9) 12/02/24 08:38 Eos # (Auto) 0.1 10^3/uL (0.0-0.8) 12/02/24 08:38 Baso # (Auto) 0.0 10^3/uL (0.0-0.1) 12/02/24 08:38 Nucleated RBC % (auto) 0 % 12/02/24 08:38 Nucleated RBCs # 0.0 /100WBC 12/02/24 08:38 C-Reactive Protein 6.2 mg/L (0.0-4.9) H 12/02/24 08:38 All radiology interpretation(s) finalized by discharge Discharge Plan Discharge Patient Disposition: Home Clinical Impression: Right knee injury, Right ankle injury, Status post lumbar spinal fusion, Wound dehiscence Clinical Impression: (Ruled Out): Spinal stenosis, lumbar region, without neurogenic claudication Condition: Stable Prescriptions: No Action gabapentin 300 mg capsule 1,200 mg PO .qhs (DME) Bone Growth Stimulator See Rx Instructions .Route .MEDSUPPLY Qty: 1 0RF Rx Instructions: As directed naloxone [Narcan] 4 mg/actuation spray,non-aerosol See Rx Instructions .ROUTE .COMPLEX Rx Instructions: ONE NOSTRIL ONE TIME. REPEAT EVERY 2-3 MINUTES NEEDED IF NO OR MINIMAL RESPONSE. Discharge Orders: Discharge ED (Routine); Ordered 12/02/24 Ordered By: Garret Finch Referrals: Tommy Villalobos, FOREST PATHOLOGIST [Primary Care Provider] - Discharge Diet: Advance as tolerated Discharge Activity: Resume usual activity Patient Instructions: Ankle Sprain (ED), Knee Pain (ED), Opioid Safety, Pain Management Activity Restrictions/Additional Instructions: You were seen today after a fall injuring your right knee and ankle. Your x-ray showed no signs of fracture. You may continue to use ice and [id number] pain medication to help with the discomfort as you heal from your fall. Your surgical site incisions do not appear severely infected and your labs did not show signs of serious infection. Please continue taking the antibiotics you are currently on. Print Language: Citizen Of [place] Coding Level of Care Code ED Roof Bolter for Joey Gay
--- NOTE | 2024-12-02 07:37 | XR_ITS ---
WS: [email or web address] Exam: XR hip RT 2-3V wo/w pel* [id number] Date/Time of Exam: 12/02/2024 7:42 AM Reason For Exam: fall No fracture or dislocation. The joint is preserved. Normal soft tissues. XR/XR hip RT 2-3V wo/w pel* [id number] IMPRESSION: 1. Normal RIGHT hip.
--- NOTE | 2024-12-02 07:37 | XR_ITS ---
WS: [id number] Exam: XR knee RT 3V* [id number] Date/Time of Exam: 12/02/2024 7:42 AM Reason For Exam: fall No fracture noted. The joints are preserved. No joint effusion. Normal soft tissues. XR/XR knee RT 3V* [id number] IMPRESSION: 1. Normal RIGHT knee.
[2024-12-02 08:47] LABS: Basophils % 0.4 %; Eosinophils # 0.1 10^3/uL (0.0-0.8); Hematocrit 38.1 % (36-47); Lymphocytes # 1.4 10^3/uL (0.8-4.8); Lymphocytes % 19.3 %; Mean Corpuscular HGB Conc 29.7 g/dL (30-55); Mean Corpuscular Hemoglobin 27.6 pg (27-33); Mean Corpuscular Volume 92.9 fl (85-98); Monocytes # 0.6 10^3/uL (0.2-0.9); Monocytes % 9.1 %; Neutrophils # 4.86 10^3/uL (1.8-7.7); Neutrophils % 68.9 %; Nucleated Red Blood Cells % 0 %; Platelet Count 187 10^3/cmm (157-399); White Blood Count 7.05 10^3/uL (3.29-11.43)
[2024-12-02 09:04] LABS: C Reactive Protein 6.2 mg/L (0.0-4.9)
== END 2024-12-02 09:55 | disposition home or self-care (01) ==
PROVIDERS: Emergency Provider Family Medicine; PCP Nurse Practitioner
DX: S89.91XA Unspecified injury of right lower leg, initial encounter (principal); S99.911A Unspecified injury of right ankle, initial encounter; M43.26 Fusion of spine, lumbar region; T81.30XA Disruption of wound, unspecified, initial encounter; X58.XXXA Exposure to other specified factors, initial encounter; Z03.89 Encounter for observation for other suspected diseases and conditions ruled out; Z72.0 Tobacco use
CPT/HCPCS: 36415; 72100; 73502; 73562; 73610; 85025; 86140; 99024; 99284

== ENCOUNTER → 2024-12-08 13:39 | Outpatient (BNVA) | payer MEDICAID, SELFPAY | PROVIDERS: PCP Nurse Practitioner; Visit Provider Thoracic Surgery (Cardiothoracic Vascular Surgery) | DX: T81.31XA Disruption of external operation (surgical) wound, not elsewhere classified, initial encounter (principal); Y83.8 Other surgical procedures as the cause of abnormal reaction of the patient, or of later complication, without mention of misadventure at the time of the procedure | CPT/HCPCS: 11042; 97597; 99213 ==

== ENCOUNTER → 2024-12-22 14:45 | Outpatient (BNVA) | payer MEDICAID, SELFPAY | PROVIDERS: PCP Nurse Practitioner; Visit Provider Thoracic Surgery (Cardiothoracic Vascular Surgery) | DX: T81.31XD Disruption of external operation (surgical) wound, not elsewhere classified, subsequent encounter (principal); Y83.8 Other surgical procedures as the cause of abnormal reaction of the patient, or of later complication, without mention of misadventure at the time of the procedure | CPT/HCPCS: 11042; 87070; 87075; 87205 ==

== ENCOUNTER → 2024-12-29 14:09 | Outpatient (BNVA) | payer MEDICAID, SELFPAY | PROVIDERS: PCP Nurse Practitioner; Visit Provider Thoracic Surgery (Cardiothoracic Vascular Surgery) | DX: I96 Gangrene, not elsewhere classified (principal); T81.31XD Disruption of external operation (surgical) wound, not elsewhere classified, subsequent encounter; Y83.8 Other surgical procedures as the cause of abnormal reaction of the patient, or of later complication, without mention of misadventure at the time of the procedure | CPT/HCPCS: 11042; 97597 ==

== ENCOUNTER 2025-01-01 17:24 | Emergency (ER) | payer MEDICAID, SELFPAY ==
[2025-01-01 17:28] VITALS: BP 127/78; PULSE 111; TEMP 36.6; O2SAT 94; BMI 29.2
--- NOTE | 2025-01-01 18:09 | CTR_ITS ---
PROCEDURE INFORMATION: Exam: CT Head Without Contrast Exam date and time: 01/01/2025 6:44 PM Age: 39 years old Clinical indication: Weakness, extremity; Right; Additional info: Arm numbness TECHNIQUE: Imaging protocol: Computed tomography of the head without contrast. Radiation optimization: All CT scans at this facility use at least one of these dose optimization techniques: automated exposure control; mA and/or kV adjustment per patient size (includes targeted exams where dose is matched to clinical indication); or iterative reconstruction. COMPARISON: CT cervical spin wo con* [id number] 01/01/2025 6:44 PM RADIATION DOSE METRICS: Total DLP (mGy-cm): 1064.9 FINDINGS: Brain: Normal. No hemorrhage. Unremarkable white matter. No mass effect. Cerebral ventricles: Small focus of hyperattenuation along the approximate region of the right choroid plexus as it extends along the inferior right lateral ventricle, likely reflective of mineralization (series 8, image 43; series 7, image 34). Paranasal sinuses: Layering debris within the sphenoid sinus. Mastoid air cells: Perhaps a hairline fracture through the left posterior zygomatic mastoid juncture. Bones: Depressed fracture through the left zygoma body. Hairline fracture through the left anterior zygomatic maxillary juncture. Soft tissues: Left frontal scalp vertex laceration with closure material. CT/CT head wo con* [id number] IMPRESSION: 1. No acute intracranial findings. 2. Fractures of the left zygoma as highlighted above. 3. Laceration status post closure of the left frontal scalp.
--- NOTE | 2025-01-01 18:09 | XRR_ITS ---
PROCEDURE INFORMATION: Exam: XR Right Shoulder Exam date and time: 01/01/2025 6:12 PM Age: 39 years old Clinical indication: Pain; Shoulder; Right; Additional info: Right arm weakness TECHNIQUE: Imaging protocol: Radiologic exam of the right shoulder. Views: 2 or more views. COMPARISON: CR XR chest 1V portable [id number] 08/12/2024 12:56 AM FINDINGS: Bones/joints: Normal. Soft tissues: Normal. XR/XR shoulder RT min 2V* [id number] IMPRESSION: No acute findings.
--- NOTE | 2025-01-01 18:10 | CTR_ITS ---
PROCEDURE INFORMATION: Exam: CT Cervical Spine Without Contrast Exam date and time: 01/01/2025 6:44 PM Age: 39 years old Clinical indication: Numbness; Additional info: Right arm numbness TECHNIQUE: Imaging protocol: Computed tomography of the cervical spine without contrast. Radiation optimization: All CT scans at this facility use at least one of these dose optimization techniques: automated exposure control; mA and/or kV adjustment per patient size (includes targeted exams where dose is matched to clinical indication); or iterative reconstruction. 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 The posterior elements of the C1 ring appear to be subluxed with respect to the posterior elements of the C2 vertebral body. This likely narrows the thecal sac and has some likely underlying mass-effect upon the traversing thecal sac. The remaining cervical sign appears well aligned. Remaining cervical spine demonstrates mild degenerative changes without significant spinal canal stenosis or foraminal stenosis. Trachea: Large right tracheal diverticulum. Lungs: Lung apices are normal. Soft tissues: Unremarkable. CT/CT cervical spin wo con* [id number] IMPRESSION: Congenital variants of the C1 ring, however there is possibility that there is acute anterior/inferior subluxation of the posterior elements of C1 with respect to the posterior elements of C2 which cause mass-effect upon the thecal sac and some degree of spinal canal stenosis. Recommend MRI for assessment.
[2025-01-01 18:29] VITALS: BP 132/82; PULSE 98; O2SAT 98
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
--- NOTE | 2025-01-01 20:00 | PC.NURSE ---
CT on patient results show possible subluxation at C1/ C2 patient is being transported to [facility] via air ambulance.
[2025-01-01 21:42] VITALS: BP 131/106; PULSE 78; RESP 20; O2SAT 98
== END 2025-01-01 21:46 | disposition short-term general hospital (02) ==
PROVIDERS: Emergency Provider Emergency Medicine; PCP Nurse Practitioner
DX: S13.120A Subluxation of C1/C2 cervical vertebrae, initial encounter (principal); R53.1 Weakness; Z72.0 Tobacco use; V89.2XXA Person injured in unspecified motor-vehicle accident, traffic, initial encounter
CPT/HCPCS: 70450; 72125; 73030; 99284

== ENCOUNTER → 2025-01-12 14:35 | Outpatient (BNVA) | payer MEDICAID, SELFPAY | PROVIDERS: PCP Nurse Practitioner; Visit Provider Thoracic Surgery (Cardiothoracic Vascular Surgery) | DX: Z09 Encounter for follow-up examination after completed treatment for conditions other than malignant neoplasm (principal); Z87.2 Personal history of diseases of the skin and subcutaneous tissue | CPT/HCPCS: 99212 ==

== ENCOUNTER → 2025-01-15 15:21 | Outpatient (BNVA) | payer MEDICAID, SELFPAY | PROVIDERS: PCP Nurse Practitioner; Visit Provider Orthopaedic Surgery | DX: Z98.1 Arthrodesis status (principal); S12.101A Unspecified nondisplaced fracture of second cervical vertebra, initial encounter for closed fracture; X58.XXXA Exposure to other specified factors, initial encounter | CPT/HCPCS: 72050; 72100; 99213 ==

== ENCOUNTER 2025-01-20 15:26 | Outpatient (CLI) | payer MEDICAID, SELFPAY ==
--- NOTE | 2025-01-20 16:00 | MR_ITS ---
WS: [id number] MRI CERVICAL SPINE NONCONTRAST TECHNIQUE: Sagittal T1, T2 and STIR imaging. Axial T2, gradient, and fiesta imaging. CLINICAL INFORMATION: Neck Pain COMPARISON: MRI 01/02/2025 FINDINGS: Straightening of the normal cervical lordosis. Myelomalacia with cord atrophy at the C1-2 levels. This is similar compared to previous. No high-grade central canal stenosis. 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 Associated subluxation. Spinal canal remains patent. Incomplete posterior elements C2-3 and probably RIGHT C3-4. Some of this may be due to prior surgery. C2-C3: Spinal canal is patent. Mild LEFT bony foraminal narrowing. C3-C4: Mild facet arthropathy. Moderate LEFT and mild RIGHT bony foraminal narrowing. C4-C5: Mild disc bulging. Spinal canal is patent. Mild facet arthropathy. C5-C6: Mild disc bulging with slight effacement of the ventral thecal sac. Mild facet arthropathy. Tiny amount of subligamentous disc bulging. No evidence of extruded disc fragment. C6-C7: Mild disc bulging. Mild LEFT and no significant RIGHT foraminal narrowing. Moderate facet arthropathy. Spinal canal is patent. C7-T1: Mild disc bulging. Osteophytic ridging. Mild bilateral bony foraminal narrowing. Mild facet arthropathy. T1-T2: Mild LEFT bony foraminal narrowing. Spinal canal and RIGHT foramen are patent. Visualized brain stem structures: Normal. Prevertebral soft tissues: Normal. MR/MR cervical spin wo con* [id number] IMPRESSION: 1. 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 Additional abnormalities of the posterior elements at C2 and C3. Some this may be due to prior surgery. No high-grade stenosis at this level. 2. 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 3. No extruded disc fragment is visualized. Tiny amount of subligamentous disc herniation at C5-C6 without significant stenosis. 4. Mild LEFT bony foraminal narrowing C2-3, moderate LEFT C3-4, and mild LEFT C6-7 and C7-T1. 5. Moderate facet arthropathy worse at LEFT C3-C4, bilateral C5-C6 and bilater al C6-C7.
== END 2025-01-20 15:27 | disposition home or self-care (01) ==
LOC: RAD 15:28
PROVIDERS: PCP Nurse Practitioner; Visit Provider Orthopaedic Surgery
DX: M48.02 Spinal stenosis, cervical region (principal); M48.03 Spinal stenosis, cervicothoracic region; R93.7 Abnormal findings on diagnostic imaging of other parts of musculoskeletal system; G95.89 Other specified diseases of spinal cord; M47.892 Other spondylosis, cervical region; M50.321 Other cervical disc degeneration at C4-C5 level; M50.322 Other cervical disc degeneration at C5-C6 level; M50.323 Other cervical disc degeneration at C6-C7 level; M50.33 Other cervical disc degeneration, cervicothoracic region; M25.78 Osteophyte, vertebrae; M47.893 Other spondylosis, cervicothoracic region
CPT/HCPCS: 72141

== ENCOUNTER → 2025-01-27 14:10 | Outpatient (BNVA) | payer MEDICAID, SELFPAY | PROVIDERS: PCP Nurse Practitioner; Visit Provider Orthopaedic Surgery | DX: M54.2 Cervicalgia (principal) | CPT/HCPCS: 99214 ==

== ENCOUNTER → 2025-02-03 09:04 | Outpatient (BNVA) | payer MEDICAID, SELFPAY | PROVIDERS: PCP Nurse Practitioner; Referring Provider Orthopaedic Surgery; Visit Provider Anesthesiology Pain Medicine | DX: M54.2 Cervicalgia (principal); F17.200 Nicotine dependence, unspecified, uncomplicated | CPT/HCPCS: 99204 ==

== ENCOUNTER 2025-03-17 07:18 | Emergency (ER) | payer MEDICAID, SELFPAY ==
[2025-03-17 07:32] VITALS: BP 136/105; PULSE 110; RESP 18; TEMP 36.8; O2SAT 96; BMI 29.2
--- NOTE | 2025-03-17 07:55 | W.ED.EXTPRO ---
HPI - Extremity Problem General: Chief complaint: Extremity Problem,Nontraumatic Stated complaint: right side leg numbness Time Seen by Provider: 03/17/25 07:54 History of Present Illness: 39-year-old female presents emergency room complaining of numbness to the lateral part of her right lower leg extending down to the lateral part of her right foot. She has no back pain no urinary retention no fecal incontinence no recent trauma or falls. Symptoms began 2 days ago she has not noticed any foot drop or weakness in the foot. Associated symptoms: Deny chest pain, fever(s) or rash Related Data Home Medications ?Medication ?Instructions ?Recorded ?Confirmed ropinirole 0.25 mg tablet 0.25 mg PO TID 03/17/25 03/17/25 Previous Rx's ?Medication ?Instructions ?Recorded ibuprofen 600 mg tablet 600 mg PO BID #60 tabs 02/03/25 prednisone 20 mg tablet 20 mg PO TID #15 tabs 03/17/25 Allergies Allergy/AdvReac Type Severity Reaction Status Date / Time albuterol Allergy ALGY-Difficulty Verified 02/03/25 09:32 Breathing divalproex sodium (From Allergy Unconscious Verified 02/03/25 09:32 Depakote) Review of Systems Const: Denies: fever(s) or chills Card: Denies: chest pain Resp: Denies: dyspnea GI: Denies: abdominal pain : Denies: dysuria, urinary frequency or urinary urgency Musc: Denies: neck pain or back pain Skin/Breast: Denies: rash PFSH ED PFSH: Medical History No pertinent past medical history Social History Smoking and tobacco/nicotine status: current every day tobacco/nicotine user Second hand smoke exposure: No Alcohol intake: current Substance/Drug Use: current Substance/Drug use frequency: few times a week Physical Exam Const: COMMON NORMALS: no acute distress GENERAL APPEARANCE: cooperative and comfortable ORIENTATION/CONSCIOUSNESS: Yes awake, Yes oriented to person, Yes oriented to place and Yes oriented to time HENMT: COMMON NORMALS: normocephalic, atraumatic and hearing grossly normal bilaterally HEAD & SCALP: normocephalic and atraumatic Resp: COMMON NORMALS: normal respiratory effort, No retractions, No use of accessory muscles and clear to auscultation bilaterally AUSCULTATION: clear to auscultation bilaterally Cardio: COMMON NORMALS: regular rate, regular rhythm and No murmurs present (Cardio) RATE: regular rate RHYTHM: regular rhythm GI: COMMON NORMALS: Soft to palpation and No hepatosplenomegaly present AUSCULTATION: Yes normoactive bowel sounds PALPATION: Yes Soft to palpation, No Tenderness to palpation present (GI), No Guarding due to palpation present (GI) and Yes No hepatosplenomegaly present Extremity: COMMON NORMALS: normal to inspection, capillary refill normal, no clubbing, cyanosis or edema, no calf tenderness and no pedal edema Neuro: SENSORIUM/ORIENTATION: Yes oriented to person, Yes oriented to place and Yes oriented to time Skin: COMMON NORMALS: no rashes or lesions noted GENERAL SKIN EXAM: no rashes or lesions noted Course Vital Signs: Vital signs: Vital Signs Temperature 98.2 F 03/17/25 07:32 Pulse Rate 88 03/17/25 10:09 Respiratory Rate 18 03/17/25 07:32 Blood Pressure 142/99 03/17/25 10:09 Pulse Oximetry 96 03/17/25 10:09 Oxygen Delivery Me thod Room Air 03/17/25 09:35 MDM - Extremity (Nontraumatic) Medical Decision Making Peripheral neuropathy with decreased sensation related to the right lower leg laterally. No sign of DVT. Will place patient on a prednisone taper discharge home and have her follow-up with neurology. Medical Records I reviewed the patient's medical records. Lab Data I reviewed the patient's lab results. 03/17/25 09:08 03/17/25 09:08 Laboratory Results WBC 7.93 10^3/uL (3.29-11.43) 03/17/25 09:08 Corrected WBC Cancelled 03/17/25 08:09 RBC 3.78 10^6/uL (3.85-5.65) L 03/17/25 09:08 Hgb 10.50 g/dL (11.27-16.99) L 03/17/25 09:08 Hct 34.4 % (36-47) L 03/17/25 09:08 MCV 91.0 fl (85-98) 03/17/25 09:08 MCH 27.8 pg (27-33) 03/17/25 09:08 MCHC 30.5 g/dL (30-55) 03/17/25 09:08 RDW 17.1 % (12.1-15.1) H 03/17/25 09:08 Plt Count 249 10^3/cmm (157-399) 03/17/25 09:08 MPV 9.8 fL (7.4-10.4) 03/17/25 09:08 Gran % Cancelled 03/17/25 08:09 Neut % (Auto) 71.3 % 03/17/25 09:08 Lymph % (Auto) 20.6 % 03/17/25 09:08 [place] % (Auto) 6.4 % 03/17/25 09:08 Eos % (Auto) 1.5 % 03/17/25 09:08 Baso % (Auto) 0.1 % 03/17/25 09:08 Neut # (Auto) 5.65 10^3/uL (1.8-7.7) 03/17/25 09:08 Lymph # (Auto) 1.6 10^3/uL (0.8-4.8) 03/17/25 09:08 [place] # (Auto) 0.5 10^3/uL (0.2-0.9) 03/17/25 09:08 Eos # (Auto) 0.1 10^3/uL (0.0-0.8) 03/17/25 09:08 Baso # (Auto) 0.0 10^3/uL (0.0-0.1) 03/17/25 09:08 Absolute Gran (auto) Cancelled 03/17/25 08:09 Nucleated RBC % (auto) 0 % 03/17/25 09:08 Nucleated RBCs # 0.0 /100WBC 03/17/25 09:08 ESR 6 mm/hr (0-15) 03/17/25 09:08 Sodium 137 mmol/L (136-145) 03/17/25 09:08 Potassium 3.9 mmol/L (3.5-5.1) 03/17/25 09:08 Chloride 103 mmol/L (98-107) 03/17/25 09:08 Carbon Dioxide 24 mmol/L (22-29) 03/17/25 09:08 Anion Gap 13.9 (5-19) 03/17/25 09:08 BUN 13 mg/dL (6-20) 03/17/25 09:08 Creatinine 0.7 mg/dL (0.5-0.9) 03/17/25 09:08 GFR Calculation 92.7 mL/min (90-130) 03/17/25 09:08 Glucose 95 mg/dL (65-115) 03/17/25 09:08 Calculated Osmolality 284 mOsm/kg (285-295) L 03/17/25 09:08 Calcium 9.0 mg/dL (8.5-10.5) 03/17/25 09:08 Total Bilirubin 0.3 mg/dL (0.15-1.2) 03/17/25 09:08 AST 21 U/L (0-32) 03/17/25 09:08 ALT 7 U/L (0-33) 03/17/25 09:08 Alkaline Phosphatase 117 U/L (35-105) H 03/17/25 09:08 C-Reactive Protein 4.9 mg/L (0.0-4.9) 03/17/25 09:08 Total Protein 7.5 g/dL (6.6-8.7) 03/17/25 09:08 Albumin 4.2 g/dL (3.5-5.2) 03/17/25 09:08 Globulin 3.3 g/dL (1.3-4.6) 03/17/25 09:08 All radiology interpretation(s) finalized by discharge Discharge Plan Discharge Patient Disposition: Home Clinical Impression: 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 3 times daily x3 days, 1 p.o. twice daily x2 days, 1 p.o. daily x2 days No Action ibuprofen 600 mg tablet 600 mg PO BID Qty: 60 0RF ropinirole 0.25 mg tablet 0.25 mg PO TID Discharge Orders: Discharge ED (Routine); Ordered 03/17/25 Ordered By: Garret Finch Referrals: Tommy Villalobos, [employer] [Primary Care Provider, Nurse Practitioner] Discharge Diet: Usual diet Discharge Activity: Resume usual activity Patient Instructions: Opioid Safety, Pain Management Activity Restrictions/Additional Instructions: Thank you for choosing [facility] for your healthcare needs today. It is very important that you follow up as instructed or that you return to the Emergency Department should you have concerns or if your condition changes or worsens in any way. You were seen in the emergency room with complaints of numbness in your right lower leg. Based on your exam and history you have a peripheral neuropathy in the lower leg. Recommend you follow-up with neurology as it can evaluate further. Will start you on a steroid taper in the emergency room. Additionally on your laboratory test done today you were noted to be anemic you should follow-up with your primary care doctor regarding this Print Language: Maltese Coding Level of Care Code ED [employer] Tester for Joey Gay
--- NOTE | 2025-03-17 07:56 | ECG_ITS ---
[facility] [employer] Test Date: 2025-03-17 Pat Name: Mireya Mane Department: Room: Gender: Female Frog Shaker: : 1985 Requested By: Garret Goodwin Order Number: [id number] Reading MD: KEANU BEACH Measurements Intervals [place] Rate: 78 P: 57 [place]: 162 QRS: 16 QRSD: 89 T: 20 QT: 395 QTc: 451 Interpretive Statements SINUS RHYTHM POSSIBLE RIGHT VENTRICULAR CONDUCTION DELAY [RSR (QR) IN V1/V2] Compared to ECG 08/12/2024 02:57:27 No significant changes Electronically Signed On 03-19-2025 23:34:42 CDT by KEANU BEACH [email or web address]
[2025-03-17 09:19] LABS: Basophils % 0.1 %; Eosinophils # 0.1 10^3/uL (0.0-0.8); Eosinophils % 1.5 %; Hematocrit 34.4 % (36-47); Lymphocytes # 1.6 10^3/uL (0.8-4.8); Lymphocytes % 20.6 %; Mean Corpuscular HGB Conc 30.5 g/dL (30-55); Mean Corpuscular Hemoglobin 27.8 pg (27-33); Mean Platelet Volume 9.8 fL (7.4-10.4); Monocytes # 0.5 10^3/uL (0.2-0.9); Monocytes % 6.4 %; Neutrophils # 5.65 10^3/uL (1.8-7.7); Neutrophils % 71.3 %; Nucleated Red Blood Cells % 0 %; Platelet Count 249 10^3/cmm (157-399); Red Blood Count 3.78 10^6/uL (3.85-5.65); Red Cell Distribution Width 17.1 % (12.1-15.1); White Blood Count 7.93 10^3/uL (3.29-11.43)
[2025-03-17 09:35] VITALS: BP 139/118; PULSE 84; O2SAT 97
[2025-03-17 09:43] LABS: Erythrocyte Sedimentation Rate 6 mm/hr (0-15)
[2025-03-17 09:48] LABS: Alanine Aminotransferase 7 U/L (0-33); Albumin Level 4.2 g/dL (3.5-5.2); Alkaline Phosphatase 117 U/L (35-105); Anion Gap 13.9 (5-19); Aspartate Amino Transferase 21 U/L (0-32); Blood Urea Nitrogen 13 mg/dL (6-20); C Reactive Protein 4.9 mg/L (0.0-4.9); Carbon Dioxide 24 mmol/L (22-29); Chloride 103 mmol/L (98-107); Globulin 3.3 g/dL (1.3-4.6); Glomerular Filtration Rate 92.7 mL/min (90-130); Glucose 95 mg/dL (65-115); Osmolality Calculated 284 mOsm/kg (285-295); Potassium 3.9 mmol/L (3.5-5.1); Sodium 137 mmol/L (136-145); Total Bilirubin 0.3 mg/dL (0.15-1.2); Total Protein 7.5 g/dL (6.6-8.7)
[2025-03-17 10:09] VITALS: BP 142/99; PULSE 88; O2SAT 96
--- NOTE | 2025-03-18 07:49 | DCPLANNER ---
Message sent to Neurology-Peripheral neuropathy with decreased sensation related to the right lower leg laterally. No sign of DVT. Will place patient on a prednisone taper discharge home and have her follow-up with neurology.
== END 2025-03-17 10:10 | disposition home or self-care (01) ==
PROVIDERS: Emergency Provider Family Medicine; PCP Nurse Practitioner
DX: G58.8 Other specified mononeuropathies (principal); D64.9 Anemia, unspecified
CPT/HCPCS: 36415; 80053; 85025; 85651; 86140; 93005; 99284

== ENCOUNTER → 2025-03-19 15:00 | Outpatient (BNVA) | payer MEDICAID, SELFPAY | PROVIDERS: PCP Nurse Practitioner; Visit Provider Orthopaedic Surgery | DX: M54.2 Cervicalgia (principal) | CPT/HCPCS: 99213 ==

== ENCOUNTER → 2025-03-26 15:24 | Outpatient (BNVA) | payer MEDICAID, SELFPAY | PROVIDERS: PCP Nurse Practitioner; Visit Provider Orthopaedic Surgery | DX: Z98.1 Arthrodesis status (principal); M54.9 Dorsalgia, unspecified | CPT/HCPCS: 72100; 99213 ==

== ENCOUNTER 2025-04-21 09:11 | Emergency (ER) | payer MEDICAID, SELFPAY ==
[2025-04-21 09:37] VITALS: BP 115/75; PULSE 108; RESP 16; TEMP 36.7; O2SAT 99
[2025-04-21 09:55] LABS: Basophils % 0.5 %; Eosinophils # 0.1 10^3/uL (0.0-0.8); Eosinophils % 1.8 %; Lymphocytes # 1.2 10^3/uL (0.8-4.8); Lymphocytes % 19.5 %; Mean Corpuscular HGB Conc 31.4 g/dL (30-55); Mean Corpuscular Hemoglobin 27.4 pg (27-33); Mean Corpuscular Volume 87.5 fl (85-98); Mean Platelet Volume 10.7 fL (7.4-10.4); Monocytes # 0.5 10^3/uL (0.2-0.9); Monocytes % 7.4 %; Neutrophils # 4.38 10^3/uL (1.8-7.7); Neutrophils % 70.6 %; Nucleated Red Blood Cells % 0 %; Platelet Count 296 10^3/cmm (157-399); Red Blood Count 4.23 10^6/uL (3.85-5.65); Red Cell Distribution Width 16.8 % (12.1-15.1)
[2025-04-21 10:11] LABS: HCG, Serum Qual Negative (Negative)
[2025-04-21 10:16] LABS: Alanine Aminotransferase 17 U/L (0-33); Albumin Level 4.3 g/dL (3.5-5.2); Alkaline Phosphatase 117 U/L (35-105); Anion Gap 17.6 (5-19); Aspartate Amino Transferase 33 U/L (0-32); Blood Urea Nitrogen 16 mg/dL (6-20); Calcium 9.3 mg/dL (8.5-10.5); Carbon Dioxide 21 mmol/L (22-29); Chloride 103 mmol/L (98-107); Globulin 3.2 g/dL (1.3-4.6); Glomerular Filtration Rate 92.7 mL/min (90-130); Glucose 87 mg/dL (65-115); Lipase 30 U/L (13-60); Osmolality Calculated 287 mOsm/kg (285-295); Potassium 3.6 mmol/L (3.5-5.1); Sodium 138 mmol/L (136-145); Total Bilirubin 0.4 mg/dL (0.15-1.2); Total Protein 7.5 g/dL (6.6-8.7)
[2025-04-21 12:26] VITALS: BP 119/77; PULSE 94; RESP 16; TEMP 36.8; O2SAT 99
--- NOTE | 2025-04-21 12:28 | ED.PEDGIA ---
HPI - Pediatric GI General: Chief Complaint: Nausea/Vomiting/Diarrhea Stated Complaint: vomitting Time Seen by Provider: 04/21/25 09:12 Related Data Home Medications ?Medication ?Instructions ?Recorded ?Confirmed ropinirole 0.25 mg tablet 0.25 mg PO TID 03/17/25 03/26/25 Previous Rx's ?Medication ?Instructions ?Recorded ibuprofen 600 mg tablet 600 mg PO BID #60 tabs 02/03/25 prednisone 20 mg tablet 20 mg PO TID #15 tabs 03/17/25 Allergies Allergy/AdvReac Type Severity Reaction Status Date / Time albuterol Allergy ALGY-Difficulty Verified 03/26/25 14:32 Breathing divalproex sodium (From Allergy Unconscious Verified 03/26/25 14:32 Depakote) PFS ED PFSH: Medical History No pertinent past medical history Social History Smoking and tobacco/nicotine status: current every day tobacco/nicotine user Second hand smoke exposure: No Alcohol intake: current Substance/Drug Use: current Substance/Drug use frequency: few times a week Course Vital Signs: Vital signs: Vital Signs Temperature 98.2 F 04/21/25 12:26 Pulse Rate 94 04/21/25 12:26 Respiratory Rate 16 04/21/25 12:26 Blood Pressure 119/77 04/21/25 12:26 Pulse Oximetry 99 04/21/25 12:26 Oxygen Delivery Me thod Room Air 04/21/25 12:26 Medical Decision Making Lab Data 04/21/25 09:48 04/21/25 09:48 Laboratory Results WBC 6.20 10^3/uL (3.29-11.43) 04/21/25 09:48 RBC 4.23 10^6/uL (3.85-5.65) 04/21/25 09:48 Hgb 11.60 g/dL (11.27-16.99) 04/21/25 09:48 Hct 37.0 % (36-47) 04/21/25 09:48 MCV 87.5 fl (85-98) 04/21/25 09:48 MCH 27.4 pg (27-33) 04/21/25 09:48 MCHC 31.4 g/dL (30-55) 04/21/25 09:48 RDW 16.8 % (12.1-15.1) H 04/21/25 09:48 Plt Count 296 10^3/cmm (157-399) 04/21/25 09:48 MPV 10.7 fL (7.4-10.4) H 04/21/25 09:48 Neut % (Auto) 70.6 % 04/21/25 09:48 Lymph % (Auto) 19.5 % 04/21/25 09:48 [place] % (Auto) 7.4 % 04/21/25 09:48 Eos % (Auto) 1.8 % 04/21/25 09:48 Baso % (Auto) 0.5 % 04/21/25 09:48 Neut # (Auto) 4.38 10^3/uL (1.8-7.7) 04/21/25 09:48 Lymph # (Auto) 1.2 10^3/uL (0.8-4.8) 04/21/25 09:48 [place] # (Auto) 0.5 10^3/uL (0.2-0.9) 04/21/25 09:48 Eos # (Auto) 0.1 10^3/uL (0.0-0.8) 04/21/25 09:48 Baso # (Auto) 0.0 10^3/uL (0.0-0.1) 04/21/25 09:48 Nucleated RBC % (auto) 0 % 04/21/25 09:48 Nucleated RBCs # 0.0 /100WBC 04/21/25 09:48 Sodium 138 mmol/L (136-145) 04/21/25 09:48 Potassium 3.6 mmol/L (3.5-5.1) 04/21/25 09:48 Chloride 103 mmol/L (98-107) 04/21/25 09:48 Carbon Dioxide 21 mmol/L (22-29) L 04/21/25 09:48 Anion Gap 17.6 (5-19) 04/21/25 09:48 BUN 16 mg/dL (6-20) 04/21/25 09:48 Creatinine 0.7 mg/dL (0.5-0.9) 04/21/25 09:48 GFR Calculation 92.7 mL/min (90-130) 04/21/25 09:48 Glucose 87 mg/dL (65-115) 04/21/25 09:48 Calculated Osmolality 287 mOsm/kg (285-295) 04/21/25 09:48 Calcium 9.3 mg/dL (8.5-10.5) 04/21/25 09:48 Total Bilirubin 0.4 mg/dL (0.15-1.2) 04/21/25 09:48 AST 33 U/L (0-32) H 04/21/25 09:48 ALT 17 U/L (0-33) 04/21/25 09:48 Alkaline Phosphatase 117 U/L (35-105) H 04/21/25 09:48 Total Protein 7.5 g/dL (6.6-8.7) 04/21/25 09:48 Albumin 4.3 g/dL (3.5-5.2) 04/21/25 09:48 Globulin 3.2 g/dL (1.3-4.6) 04/21/25 09:48 Lipase 30 U/L (13-60) 04/21/25 09:48 HCG, Qual Negative (Negative) 04/21/25 09:48 Amorphous Sediment Not Reportable 04/21/25 12:07 Discharge Plan Discharge Condition: Stable Prescriptions: No Action ibuprofen 600 mg tablet 600 mg PO BID Qty: 60 0RF ropinirole 0.25 mg tablet 0.25 mg PO TID prednisone 20 mg tablet 20 mg PO TID Qty: 15 0RF Rx Instructions: 1 p.o. 3 times daily x3 days, 1 p.o. twice daily x2 days, 1 p.o. daily x2 days Referrals: Tommy Villalobos FNP [Primary Care Provider, Nurse Practitioner] Print Language: Mongolian Coding Level of Care Code ED [employer]igzagger for Joey Gay
[2025-04-21 12:42] LABS: Bilirubin Urine 1+ (Negative); Blood Urine 3+ (Negative); Glucose Urine UA Negative (Normal); Ketones Urine Negative (Negative); Leukocyte Esterase Urine 2+ (Negative); Nitrate Urine Positive (Negative); Protein Urine 1+ (Negative); Specific Gravity, Urine 1.028 (1.005-1.030); Urine Appearance Turbid (CLEAR); pH Urine 5.5 (5-7)
[2025-04-21 12:50] LABS: Add Urine Microscopic? YES; Bacteria Urine 4+ /hpf; Hyaline Casts Urine 2.05 /lpf; RBC Urine >100 /hpf (0-2); Squamous Epithelial Cell Urine 0-5 /hpf (0-5); WBC Urine >100 /hpf (0-5)
[2025-04-21 13:21] LABS: Add Urine Culture? Yes; UA Slide Review UA Slide Review Perf; Urine Color Orange (Yellow)
[2025-04-21 14:22] VITALS: BP 139/95; PULSE 86; O2SAT 100
[2025-04-21] MEDS: cefTRIAXone 1,000 MG in lidocaine 1% 2.1 ML 2.1 MG IM (14:25)
--- NOTE | 2025-04-21 16:13 | W.ED.NAVMDI ---
HPI - Nausea/Vomiting/Diarrhea General: Chief complaint: Nausea/Vomiting/Diarrhea Stated complaint: vomitting Time Seen by Provider: 04/21/25 09:12 History of Present Illness: 39-year-old female presents emergency room complaining of vomiting and generally not feeling well. She has some mild suprapubic pain as well mild dysuria. Subjectively has a fever. No hematuria has had some mild dysuria Associated symtoms: Denies chest pain or dysuria Related Data Home Medications ?Medication ?Instructions ?Recorded ?Confirmed ropinirole 0.25 mg tablet 0.25 mg PO TID 03/17/25 03/26/25 Previous Rx's ?Medication ?Instructions ?Recorded ibuprofen 600 mg tablet 600 mg PO BID #60 tabs 02/03/25 prednisone 20 mg tablet 20 mg PO TID #15 tabs 03/17/25 cephalexin 500 mg capsule 500 mg PO Q8H 7 days #21 caps 04/21/25 phenazopyridine 200 mg tablet 200 mg PO Q8H 6 doses #6 tabs 04/21/25 (Pyridium) promethazine 25 mg tablet 25 mg PO Q6H PRN nausea and 04/21/25 vomiting #20 tabs Allergies Allergy/AdvReac Type Severity Reaction Status Date / Time albuterol Allergy ALGY-Difficulty Verified 03/26/25 14:32 Breathing divalproex sodium (From Allergy Unconscious Verified 03/26/25 14:32 Depakote) Review of Systems Const: Denies: fever(s) or chills Card: Denies: chest pain Resp: Denies: dyspnea GI: Denies: abdominal pain : Denies: dysuria, urinary frequency or urinary urgency Musc: Denies: neck pain or back pain Skin/Breast: Denies: rash [facility] ED PFSH: Medical History No pertinent past medical history Social History Smoking and tobacco/nicotine status: current every day tobacco/nicotine user Second hand smoke exposure: No Alcohol intake: current Substance/Drug Use: current Substance/Drug use frequency: few times a week Physical Exam Const: COMMON NORMALS: no acute distress GENERAL APPEARANCE: cooperative and comfortable ORIENTATION/CONSCIOUSNESS: Yes awake, Yes oriented to person, Yes oriented to place and Yes oriented to time HENMT: COMMON NORMALS: normocephalic, atraumatic and hearing grossly normal bilaterally HEAD & SCALP: normocephalic and atraumatic Resp: COMMON NORMALS: normal respiratory effort, No retractions, No use of accessory muscles and clear to auscultation bilaterally AUSCULTATION: clear to auscultation bilaterally Cardio: COMMON NORMALS: regular rate, regular rhythm and No murmurs present (Cardio) RATE: regular rate RHYTHM: regular rhythm GI: COMMON NORMALS: Soft to palpation and No hepatosplenomegaly present AUSCULTATION: Yes normoactive bowel sounds PALPATION: Yes Soft to palpation, No Tenderness to palpation present (GI), No Guarding due to palpation present (GI) and Yes No hepatosplenomegaly present : COMMON NORMALS: Yes no CVA tenderness BLADDER/KIDNEY EXAM: Yes no CVA tenderness Back/Pelvis: COMMON NORMALS: no CVA tenderness Extremity: COMMON NORMALS: normal to inspection, capillary refill normal, no clubbing, cyanosis or edema, no calf tenderness and no pedal edema Neuro: SENSORIUM/ORIENTATION: Yes oriented to person, Yes oriented to place and Yes oriented to time Skin: COMMON NORMALS: no rashes or lesions noted GENERAL SKIN EXAM: no rashes or lesions noted Course Vital Signs: Vital signs: Vital Signs Temperature 98.2 F 04/21/25 12:26 Pulse Rate 86 04/21/25 14:22 Respiratory Rate 16 04/21/25 12:26 Blood Pressure 139/95 04/21/25 14:22 Pulse Oximetry 100 04/21/25 14:22 Oxygen Delivery Me thod Room Air 04/21/25 12:26 MDM - Nausea/Vomiting/Diarrhea Medical Decision Making Cystitis normal white count. Started on oral antibiotics given dose Rocephin here also start Pyridium follow-up with primary care as needed Medical Records I reviewed the patient's medical records. Lab Data I reviewed the patient's lab results. 04/21/25 09:48 04/21/25 09:48 Laboratory Results WBC 6.20 10^3/uL (3.29-11.43) 04/21/25 09:48 RBC 4.23 10^6/uL (3.85-5.65) 04/21/25 09:48 Hgb 11.60 g/dL (11.27-16.99) 04/21/25 09:48 Hct 37.0 % (36-47) 04/21/25 09:48 MCV 87.5 fl (85-98) 04/21/25 09:48 MCH 27.4 pg (27-33) 04/21/25 09:48 MCHC 31.4 g/dL (30-55) 04/21/25 09:48 RDW 16.8 % (12.1-15.1) H 04/21/25 09:48 Plt Count 296 10^3/cmm (157-399) 04/21/25 09:48 MPV 10.7 fL (7.4-10.4) H 04/21/25 09:48 Neut % (Auto) 70.6 % 04/21/25 09:48 Lymph % (Auto) 19.5 % 04/21/25 09:48 [place] % (Auto) 7.4 % 04/21/25 09:48 Eos % (Auto) 1.8 % 04/21/25 09:48 Baso % (Auto) 0.5 % 04/21/25 09:48 Neut # (Auto) 4.38 10^3/uL (1.8-7.7) 04/21/25 09:48 Lymph # (Auto) 1.2 10^3/uL (0.8-4.8) 04/21/25 09:48 [place] # (Auto) 0.5 10^3/uL (0.2-0.9) 04/21/25 09:48 Eos # (Auto) 0.1 10^3/uL (0.0-0.8) 04/21/25 09:48 Baso # (Auto) 0.0 10^3/uL (0.0-0.1) 04/21/25 09:48 Nucleated RBC % (auto) 0 % 04/21/25 09:48 Nucleated RBCs # 0.0 /100WBC 04/21/25 09:48 Sodium 138 mmol/L (136-145) 04/21/25 09:48 Potassium 3.6 mmol/L (3.5-5.1) 04/21/25 09:48 Chloride 103 mmol/L (98-107) 04/21/25 09:48 Carbon Dioxide 21 mmol/L (22-29) L 04/21/25 09:48 Anion Gap 17.6 (5-19) 04/21/25 09:48 BUN 16 mg/dL (6-20) 04/21/25 09:48 Creatinine 0.7 mg/dL (0.5-0.9) 04/21/25 09:48 GFR Calculation 92.7 mL/min (90-130) 04/21/25 09:48 Glucose 87 mg/dL (65-115) 04/21/25 09:48 Calculated Osmolality 287 mOsm/kg (285-295) 04/21/25 09:48 Calcium 9.3 mg/dL (8.5-10.5) 04/21/25 09:48 Total Bilirubin 0.4 mg/dL (0.15-1.2) 04/21/25 09:48 AST 33 U/L (0-32) H 04/21/25 09:48 ALT 17 U/L (0-33) 04/21/25 09:48 Alkaline Phosphatase 117 U/L (35-105) H 04/21/25 09:48 Total Protein 7.5 g/dL (6.6-8.7) 04/21/25 09:48 Albumin 4.3 g/dL (3.5-5.2) 04/21/25 09:48 Globulin 3.2 g/dL (1.3-4.6) 04/21/25 09:48 Lipase 30 U/L (13-60) 04/21/25 09:48 HCG, Qual Negative (Negative) 04/21/25 09:48 Urine Color [place] (Yellow) A 04/21/25 12:07 Urine Appearance Turbid (CLEAR) A 04/21/25 12:07 Urine pH 5.5 (5-7) 04/21/25 12:07 Ur Specific [place] 1.028 (1.005-1.030) 04/21/25 12:07 Urine Protein 1+ (Negative) A 04/21/25 12:07 Urine Glucose (UA) Negative (Normal) 04/21/25 12:07 Urine Ketones Negative (Negative) 04/21/25 12:07 Urine Blood 3+ (Negative) A 04/21/25 12:07 Urine Nitrate Positive (Negative) A 04/21/25 12:07 Urine Bilirubin 1+ (Negative) H 04/21/25 12:07 Urine Urobilinogen 1.0 mg/dL (Negative) 04/21/25 12:07 Ur Leukocyte Esterase 2+ (Negative) A 04/21/25 12:07 Urine RBC >100 /hpf (0-2) H 04/21/25 12:07 Urine WBC >100 /hpf (0-5) H 04/21/25 12:07 Ur Squamous Epith Cells 0-5 /hpf (0-5) 04/21/25 12:07 Amorphous Sediment Not Reportable 04/21/25 12:07 Urine Bacteria 4+ /hpf (NONE) H 04/21/25 12:07 Hyaline Casts 2.05 /lpf 04/21/25 12:07 No radiology studies performed this visit Discharge Plan Discharge Patient Disposition: Home Clinical Impression: Cystitis Condition: Stable Prescriptions: New cephalexin 500 mg capsule 500 mg PO Q8H 7 Days Qty: 21 0RF promethazine 25 mg tablet 25 mg PO Q6H PRN (Reason: nausea and vomiting) Qty: 20 0RF phenazopyridine [Pyridium] 200 mg tablet 200 mg PO Q8H Qty: 6 0RF No Action ibuprofen 600 mg tablet 600 mg PO BID Qty: 60 0RF ropinirole 0.25 mg tablet 0.25 mg PO TID prednisone 20 mg tablet 20 mg PO TID Qty: 15 0RF Rx Instructions: 1 p.o. 3 times daily x3 days, 1 p.o. twice daily x2 days, 1 p.o. daily x2 days Discharge Orders: Discharge ED (Routine); Ordered 04/21/25 Ordered By: Garret Finch Referrals: Tommy Villalobos, [employer] [Primary Care Provider, Nurse Practitioner] Discharge Diet: Usual diet Discharge Activity: Increase activity as tolerated Patient Instructions: Opioid Safety, Pain Management Activity Restrictions/Additional Instructions: Thank you for choosing [facility] for your healthcare needs today. It is very important that you follow up as instructed or that you return to the Emergency Department should you have concerns or if your condition changes or worsens in any way. You were seen in the emergency room for abdominal discomfort nausea and vomiting. You are noted to have a bladder infection. You are given a dose of Rocephin emergency room start oral antibiotics tomorrow 1 pill 3 times a day for 7 days Pyridium 1 3 times daily for bladder spasm. Print Language: Australian Coding Level of Care Code ED Transcription for Joey Gay
== END 2025-04-21 14:22 | disposition home or self-care (01) ==
PROVIDERS: Physician Assistant; Emergency Provider Family Medicine; PCP Nurse Practitioner
DX: N30.90 Cystitis, unspecified without hematuria (principal); Z72.0 Tobacco use
CPT/HCPCS: 36415; 80053; 81001; 83690; 84703; 85025; 87077; 87086; 87186; 96372; 99284; J0696; J9999

== ENCOUNTER → 2025-04-23 14:54 | Outpatient (BNVA) | payer MEDICAID, SELFPAY | PROVIDERS: PCP Nurse Practitioner; Visit Provider Orthopaedic Surgery | DX: M54.2 Cervicalgia (principal) | CPT/HCPCS: 99213 ==

== ENCOUNTER 2025-04-26 18:30 | Emergency (ER) | payer MEDICAID, SELFPAY ==
[2025-04-26 18:33] VITALS: BP 100/62; PULSE 96; RESP 16; TEMP 36.7; O2SAT 96; BMI 33.2
--- NOTE | 2025-04-26 18:49 | XRR_ITS ---
PROCEDURE INFORMATION: Exam: XR Right Foot Exam date and time: 04/26/2025 6:53 PM Age: 39 years old Clinical indication: Injury or trauma; Fall; Sprain or strain; Foot; Right; Additional info: Right foot pain TECHNIQUE: Imaging protocol: Radiologic exam of the right foot. Views: 3 or more views. COMPARISON: CR XR ankle RT min 3V* [id number] 12/02/2024 7:39 AM FINDINGS: Bones/joints: Normal mineralization and alignment. Suboptimal evaluation of the Lisfranc joint due to patient positioning. No obvious Lisfranc injury. No evidence of acute fracture or dislocation. Soft tissues: The soft tissues are within normal limits. XR/XR foot RT min 3V* [id number] IMPRESSION: No evidence of acute fracture or dislocation.
--- NOTE | 2025-04-26 18:49 | XRR_ITS ---
PROCEDURE INFORMATION: Exam: XR Right Ankle Exam date and time: 04/26/2025 6:53 PM Age: 39 years old Clinical indication: Injury or trauma; Fall; Sprain or strain; Ankle; Right; Additional info: Ankle injury TECHNIQUE: Imaging protocol: Radiologic exam of the right ankle. Views: 3 or more views. COMPARISON: CR XR ankle RT min 3V* [id number] 12/02/2024 7:39 AM FINDINGS: Bones/joints: Normal mineralization and alignment. Subtle linear hyperdensity adjacent to the lateral malleolus could represent tiny avulsion injury. No definitive evidence of acute fracture or dislocation. Soft tissues: Diffuse soft tissue swelling. XR/XR ankle RT min 3V* [id number] IMPRESSION: 1. No definitive evidence of acute fracture or dislocation. 2. Subtle linear hyperdensity adjacent to the lateral malleolus could represent tiny avulsion injury though is likely chronic.
[2025-04-26] MEDS: oxyCODONE-APAP 5-325 mg Tablet 2 TAB PO (19:06)
[2025-04-26] MEDS: ketorolac 30 mg/mL INJ IM (19:07)
--- NOTE | 2025-04-26 19:11 | ED_ITS ---
HPI - Extremity Problem General: Chief complaint: Extremity Injury, Lower Stated complaint: Rt Ankle Injury Time Seen by Provider: 04/26/25 18:40 History of Present Illness: 39-year-old female who stepped in a hole while walking twisting her right ankle. She heard a pop. This was this afternoon. She has pain and swelling with trouble bearing weight. Pain radiates into her midfoot. Not so much proximally. Related Data Home Medications ?Medication ?Instructions ?Recorded ?Confirmed ropinirole 0.25 mg tablet 0.25 mg PO TID 03/17/2504/05 Previous Rx's ?Medication ?Instructions ?Recorded ibuprofen 600 mg tablet 600 mg PO BID #60 tabs 02/03 prednisone 20 mg tablet 20 mg PO TID #15 tabs cephalexin 500 mg capsule 500 mg PO Q8H 7 days #21 cap s 04/21/25 phenazopyridine 200 mg tablet 200 mg PO Q8H 6 doses #6 tabs 04/21/25 (Pyridium) promethazine 25 mg tablet 25 mg PO Q6H PRN nausea and 04/21/25 vomiting #20 tabs tramadol 50 mg tablet 50 mg PO Q8H PRN pain #7 tab s 04/26/25 Allergies Allergy/AdvReac Type Severity Reaction Status Date / Time albuterol Allergy ALGY-Difficulty Verified 03/26/25 14:32 Breathing divalproex sodium (From Allergy Unconscious Verified 03/26/25 14:32 Depakote) [facility] ED PFSH: Medical History No pertinent past medical history Social History Smoking and tobacco/nicotine status: former use of tobacco/nicotine Second hand smoke exposure: No Alcohol intake: current Substance/Drug Use: current Substance/Drug use frequency: few times a week Physical Exam Const: COMMON NORMALS: no acute distress GENERAL APPEARANCE: cooperative; not ill appearing and not frail appearing HENMT: COMMON NORMALS: normocephalic, atraumatic and Normal external nose present HEAD & SCALP: normocephalic and atraumatic FACE & SINUS: normal facial exam and face symmetric NOSE: Normal external nose present Eye: COMMON NORMALS: Equal, round and reactive pupils present and EOMs intact bilaterally PUPIL: Yes Equal, round and reactive pupils present Neck/C-Spine: GENERAL: Yes trachea midline Chest: CHEST: Yes Symmetrical chest wall rise Resp: COMMON NORMALS: normal respiratory effort, No retractions, No use of accessory muscles and clear to auscultation bilaterally AUSCULTATION: clear to auscultation bilaterally Cardio: COMMON NORMALS: regular rate and regular rhythm RATE: regular rate RHYTHM: regular rhythm Extremity: NARRATIVE EXTREMITY EXAM: Exam the right lower extremity reveals swelling to the lateral ankle. There is no deformity. Pulses are normal. Sensation is intact. There is some midfoot tenderness diffusely as well. No significant medial tenderness. No significant bony tenderness to the fibula proximally. No knee effusion. Neuro: [place] COMA SCALE: document GCS findings [place] coma scale eye opening: Spontaneous [place] coma scale verbal response: Orientated [place] coma scale motor response: Obey commands [place] coma scale total score: 15 SE NSORY EXAM: Yes extremities (intact) Psych: COMMON NORMALS: speech normal SPEECH: Yes normal speech Course Vital Signs: Vital signs: Vital Signs Temperature 98.0 F 04/26/25 18:33 Pulse Rate 90 04/26/25 19:39 Respiratory Rate 16 04/26/25 19:39 Blood Pressure 112/70 04/26/25 19:39 Pulse Oximetry 100 04/26/25 19:39 Oxygen Delivery Me thod Room Air 04/26/25 18:33 MDM - Extremity (Nontraumatic) Medical Decision Making X-rays reveal no fracture. There is lateral soft tissue swelling. No foot fracture. She is placed in a stirrup brace, given crutches, and will follow-up as an outpatient. Lab Data Radiology Impressions Ankle X-Ray 04/26/25 18:49 IMPRESSION: 1. No definitive evidence of acute fracture or dislocation. 2. Subtle linear hyperdensity adjacent to the lateral malleolus could represent tiny avulsion injury though is likely chronic. Foot X-Ray 04/26/25 18:49 IMPRESSION: No evidence of acute fracture or dislocation. XR interpretation done by ED provider, pending radiology final review Discharge Plan Discharge Patient Disposition: Home Clinical Impression: Ankle sprain and strain Condition: Stable Prescriptions: New tramadol 50 mg tablet 50 mg PO Q8H PRN (Reason: pain) Qty: 7 0RF No Action ibuprofen 600 mg tablet 600 mg PO BID Qty: 60 0RF ropinirole 0.25 mg tablet 0.25 mg PO TID prednisone 20 mg tablet 20 mg PO TID Qty: 15 0RF Rx Instructions: 1 p.o. 3 times daily x3 days, 1 p.o. twice daily x2 days, 1 p.o. daily x2 days cephalexin 500 mg capsule 500 mg PO Q8H 7 Days Qty: 21 0RF promethazine 25 mg tablet 25 mg PO Q6H PRN (Reason: nausea and vomiting) Qty: 20 0RF phenazopyridine [Pyridium] 200 mg tablet 200 mg PO Q8H Qty: 6 0RF Discharge Orders: Discharge ED (Routine); Ordered 04/26/25 Ordered By: Jesse Spaulding Referrals: Tommy Villalobos FNP [Primary Care Provider, Nurse Practitioner] - 4-7 days Patient Instructions: Ankle Sprain (ED), Opioid Safety, Pain Management Activity Restrictions/Additional Instructions: He may begin to wear weight when you tolerate it. Until that time, use crutches for weightbearing. Ice and elevate your ankle. Take anti-inflammatory such as ibuprofen for pain and swelling. You may use pain medication for significant pain. Call your doctor tomorrow for follow-up appointment later in the week. Print Language: Kazakh Coding Level of Care Code ED Filing Writer for Joey Gay
[2025-04-26 19:39] VITALS: BP 112/70; PULSE 90; RESP 16; O2SAT 100
== END 2025-04-26 19:43 | disposition home or self-care (01) ==
PROVIDERS: Emergency Provider Emergency Medicine; PCP Nurse Practitioner
DX: S93.401A Sprain of unspecified ligament of right ankle, initial encounter (principal); Z87.891 Personal history of nicotine dependence; X58.XXXA Exposure to other specified factors, initial encounter
CPT/HCPCS: 73610; 73630; 96372; 99284; E0114; J1885; J9999

== ENCOUNTER → 2025-05-07 14:52 | Outpatient (BNVA) | payer MEDICAID, SELFPAY | PROVIDERS: PCP Nurse Practitioner; Visit Provider Specialist | DX: Z09 Encounter for follow-up examination after completed treatment for conditions other than malignant neoplasm (principal); G57.31 Lesion of lateral popliteal nerve, right lower limb | CPT/HCPCS: 99204 ==

== ENCOUNTER 2025-05-21 15:10 | Outpatient (CLI) | payer MEDICAID, SELFPAY ==
[2025-05-21 15:55] LABS: Hematocrit 38.0 % (36-47); Hemoglobin 11.80 g/dL (11.27-16.99); Mean Corpuscular HGB Conc 31.1 g/dL (30-55); Mean Corpuscular Hemoglobin 26.3 pg (27-33); Mean Corpuscular Volume 84.8 fl (85-98); Nucleated Red Blood Cells % 0 %; Platelet Count 364 10^3/cmm (157-399); Red Blood Count 4.48 10^6/uL (3.85-5.65); White Blood Count 10.28 10^3/uL (3.29-11.43)
[2025-05-21 16:20] LABS: Estmated Average Glucose 111; Hemoglobin A1C 5.5 % (4.0-6.0)
[2025-05-21 17:22] LABS: Alanine Aminotransferase 7 U/L (0-33); Albumin Level 4.2 g/dL (3.5-5.2); Alkaline Phosphatase 124 U/L (35-105); Anion Gap 18.8 (5-19); Aspartate Amino Transferase 19 U/L (0-32); Blood Urea Nitrogen 11 mg/dL (6-20); Calcium 9.4 mg/dL (8.5-10.5); Carbon Dioxide 23 mmol/L (22-29); Chloride 100 mmol/L (98-107); Cholesterol 186 mg/dL (0-200); Globulin 3.2 g/dL (1.3-4.6); Glucose 104 mg/dL (65-115); HDL Cholesterol 53 mg/dL (60-100); Lipase 46 U/L (13-60); Osmolality Calculated 286 mOsm/kg (285-295); Potassium 3.8 mmol/L (3.5-5.1); Sodium 138 mmol/L (136-145); Thyroid Stimulating Hormone 2.21 uIU/mL (0.27-4.20); Total Protein 7.4 g/dL (6.6-8.7); Triglycerides 95 mg/dL (0-150); Vitamin B12 236 pg/mL (232-1245)
== END 2025-05-21 15:11 | disposition home or self-care (01) ==
PROVIDERS: PCP Nurse Practitioner; Visit Provider Nurse Practitioner
DX: R10.13 Epigastric pain (principal); R53.83 Other fatigue; R11.2 Nausea with vomiting, unspecified; R13.10 Dysphagia, unspecified
CPT/HCPCS: 36415; 80053; 80061; 82607; 82746; 83036; 83690; 84443; 85025; 86003; 86008

== ENCOUNTER 2025-05-29 07:41 | Emergency (ER) | payer MEDICAID, SELFPAY ==
--- NOTE | 2025-05-29 07:43 | XR_ITS ---
WS: [id number] Portable AP upright chest, 05/29/2025 Clinical Data: dyspnea/cough Comparison: Portable chest, 08/12/2024 Findings: No nodules, masses or effusions are seen. The heart is normal. The pulmonary vascularity is not increased. No pneumonia or pneumothorax is seen. XR/XR chest 1V portable [id number] Impression: Negative chest.
[2025-05-29 08:05] VITALS: BP 118/74; PULSE 102; RESP 16; TEMP 36.6; O2SAT 100
--- NOTE | 2025-05-29 08:15 | W.ED.NAVMDI ---
HPI - Nausea/Vomiting/Diarrhea General: Chief complaint: Nausea/Vomiting/Diarrhea Stated complaint: unable to keep food down Time Seen by Provider: 05/29/25 07:42 History of Present Illness: 39-year-old female presents emergency room complaining of nausea and vomiting it has been going on for some time. Patient states she has been nauseous having vomiting. No hematochezia melena hematemesis coffee-ground emesis she has seen her primary care doctor they thought she might have alpha gal and has begun testing her. Associated nausea: Yes Associated symtoms: Reports nausea; Denies chest pain or dysuria Related Data Home Medications ?Medication ?Instructions ?Recorded ?Confirmed ropinirole 0.25 mg tablet 0.25 mg PO TID 03/17/25 05/07/25 Previous Rx's ?Medication ?Instructions ?Recorded ibuprofen 600 mg tablet 600 mg PO BID #60 tabs 02/03/25 prednisone 20 mg tablet 20 mg PO TID #15 tabs 03/17/25 phenazopyridine 200 mg tablet 200 mg PO Q8H 6 doses #6 tabs 04/21/25 (Pyridium) promethazine 25 mg tablet 25 mg PO Q6H PRN nausea and 04/21/25 vomiting #20 tabs tramadol 50 mg tablet 50 mg PO Q8H PRN pain #7 tabs 04/26/25 cephalexin 500 mg capsule 500 mg PO TID 7 days #21 caps 05/29/25 Allergies Allergy/AdvReac Type Severity Reaction Status Date / Time albuterol Allergy ALGY-Difficulty Verified 05/29/25 08:09 Breathing divalproex sodium (From Allergy Unconscious Verified 05/29/25 08:09 Depakote) Review of Systems Const: Denies: fever(s) or chills Card: Denies: chest pain Resp: Denies: dyspnea GI: Reports: abdominal pain, nausea and vomiting; Denies: hematemesis, coffee ground emesis, hematochezia or melena : Denies: dysuria, urinary frequency or urinary urgency Musc: Denies: neck pain or back pain Skin/Breast: Denies: rash PFS ED PFSH: Medical History No pertinent past medical history Social History (Reviewed 05/29/25 @ 08:15 by MEI Ge Smoking and tobacco/nicotine status: former use of tobacco/nicotine Second hand smoke exposure: No Alcohol intake: current Substance/Drug Use: current Substance/Drug use frequency: few times a week Physical Exam Const: GENERAL APPEARANCE: cooperative ORIENTATION/CONSCIOUSNESS: Yes awake, Yes oriented to person, Yes oriented to place and Yes oriented to time HENMT: COMMON NORMALS: normocephalic, atraumatic and hearing grossly normal bilaterally HEAD & SCALP: normocephalic and atraumatic Resp: COMMON NORMALS: normal respiratory effort, No retractions, No use of accessory muscles and clear to auscultation bilaterally AUSCULTATION: clear to auscultation bilaterally Cardio: COMMON NORMALS: regular rate, regular rhythm and No murmurs present (Cardio) RATE: regular rate RHYTHM: regular rhythm GI: COMMON NORMALS: Soft to palpation and No hepatosplenomegaly present AUSCULTATION: Yes normoactive bowel sounds PALPATION: Yes Soft to palpation, No Tenderness to palpation present (GI), No Guarding due to palpation present (GI) and Yes No hepatosplenomegaly present Extremity: COMMON NORMALS: normal to inspection, capillary refill normal, no clubbing, cyanosis or edema, no calf tenderness and no pedal edema Neuro: SENSORIUM/ORIENTATION: Yes oriented to person, Yes oriented to place and Yes oriented to time Skin: COMMON NORMALS: no rashes or lesions noted GENERAL SKIN EXAM: no rashes or lesions noted Course Vital Signs: Vital signs: Vital Signs Temperature 97.8 F 05/29/25 08:05 Pulse Rate 102 H 05/29/25 08:05 Respiratory Rate 16 05/29/25 08:05 Blood Pressure 118/74 05/29/25 08:05 Pulse Oximetry 100 05/29/25 08:05 MDM - Nausea/Vomiting/Diarrhea Medical Decision Making We are waiting on patient to have a CT abdomen pelvis she decided she would like to leave. Discussed with her we had not completed workup states she she would prefer to leave she does not want to have an IV in place. Encouraged patient to reconsider she is insistent we will discharge home she does have a secondary finding of cystitis although they do not believe that it is her cause of her primary complaints. Will start her on Keflex. Encouraged her to return if she wishes further evaluation. Medical Records I reviewed the patient's medical records. Lab Data I reviewed the patient's lab results. 05/29/25 08:53 05/29/25 08:53 Radiology Impressions Chest X-Ray 05/29/25 07:43 Impression: Negative chest. Laboratory Results WBC 10.49 10^3/uL (3.29-11.43) 05/29/25 08:53 RBC 4.15 10^6/uL (3.85-5.65) 05/29/25 08:53 Hgb 11.00 g/dL (11.27-16.99) L 05/29/25 08:53 Hct 36.4 % (36-47) 05/29/25 08:53 MCV 87.7 fl (85-98) 05/29/25 08:53 MCH 26.5 pg (27-33) L 05/29/25 08:53 MCHC 30.2 g/dL (30-55) 05/29/25 08:53 RDW 17.6 % (12.1-15.1) H 05/29/25 08:53 Plt Count 257 10^3/cmm (157-399) 05/29/25 08:53 MPV 10.7 fL (7.4-10.4) H 05/29/25 08:53 Neut % (Auto) 73.4 % 05/29/25 08:53 Lymph % (Auto) 17.3 % 05/29/25 08:53 [place] % (Auto) 7.3 % 05/29/25 08:53 Eos % (Auto) 1.1 % 05/29/25 08:53 Baso % (Auto) 0.5 % 05/29/25 08:53 Neut # (Auto) 7.69 10^3/uL (1.8-7.7) 05/29/25 08:53 Lymph # (Auto) 1.8 10^3/uL (0.8-4.8) 05/29/25 08:53 [place] # (Auto) 0.8 10^3/uL (0.2-0.9) 05/29/25 08:53 Eos # (Auto) 0.1 10^3/uL (0.0-0.8) 05/29/25 08:53 Baso # (Auto) 0.1 10^3/uL (0.0-0.1) 05/29/25 08:53 Nucleated RBC % (auto) 0 % 05/29/25 08:53 Nucleated RBCs # 0.0 /100WBC 05/29/25 08:53 Sodium 136 mmol/L (136-145) 05/29/25 08:53 Potassium 3.2 mmol/L (3.5-5.1) L 05/29/25 08:53 Chloride 97 mmol/L (98-107) L 05/29/25 08:53 Carbon Dioxide 25 mmol/L (22-29) 05/29/25 08:53 Anion Gap 17.2 (5-19) 05/29/25 08:53 BUN 16 mg/dL (6-20) 05/29/25 08:53 Creatinine 0.9 mg/dL (0.5-0.9) 05/29/25 08:53 GFR Calculation 69.3 mL/min (90-130) L 05/29/25 08:53 Glucose 97 mg/dL (65-115) 05/29/25 08:53 Calculated Osmolality 283 mOsm/kg (285-295) L 05/29/25 08:53 Calcium 9.3 mg/dL (8.5-10.5) 05/29/25 08:53 Total Bilirubin 0.5 mg/dL (0.15-1.2) 05/29/25 08:53 AST 28 U/L (0-32) 05/29/25 08:53 ALT 10 U/L (0-33) 05/29/25 08:53 Alkaline Phosphatase 125 U/L (35-105) H 05/29/25 08:53 Total Protein 7.3 g/dL (6.6-8.7) 05/29/25 08:53 Albumin 4.0 g/dL (3.5-5.2) 05/29/25 08:53 Globulin 3.3 g/dL (1.3-4.6) 05/29/25 08:53 Lipase 32 U/L (13-60) 05/29/25 08:53 HCG, Qual Negative (Negative) 05/29/25 08:53 Urine Color Dark yellow (Yellow) A 05/29/25 08:36 Urine Appearance Turbid (CLEAR) A 05/29/25 08:36 Urine pH 5.0 (5-7) 05/29/25 08:36 Ur Specific [place] 1.031 (1.005-1.030) H 05/29/25 08:36 Urine Protein Trace (Negative) A 05/29/25 08:36 Urine Glucose (UA) Negative (Normal) 05/29/25 08:36 Urine Ketones Trace (Negative) 05/29/25 08:36 Urine Blood 2+ (Negative) A 05/29/25 08:36 Urine Nitrate Positive (Negative) A 05/29/25 08:36 Urine Bilirubin 1+ (Negative) H 05/29/25 08:36 Urine Urobilinogen 1.0 mg/dL (Negative) 05/29/25 08:36 Ur Leukocyte Esterase 1+ (Negative) A 05/29/25 08:36 Urine RBC 0-2 /hpf (0-2) 05/29/25 08:36 Urine WBC 51-100 /hpf (0-5) H 05/29/25 08:36 Ur Squamous Epith Cells 6-10 /hpf (0-5) 05/29/25 08:36 Amorphous Sediment Not Reportable 05/29/25 08:36 Urine Bacteria 3+ /hpf (NONE) H 05/29/25 08:36 Hyaline Casts 2.05 /lpf 05/29/25 08:36 All radiology interpretation(s) finalized by discharge Discharge Plan Discharge Patient Disposition: Home Clinical Impression: Abdominal pain, Nausea & vomiting, At risk for dissatisfaction with healthcare, Cystitis Condition: Stable Prescriptions: New cephalexin 500 mg capsule 500 mg PO TID 7 Days Qty: 21 0RF No Action ibuprofen 600 mg tablet 600 mg PO BID Qty: 60 0RF ropinirole 0.25 mg tablet 0.25 mg PO TID prednisone 20 mg tablet 20 mg PO TID Qty: 15 0RF Rx Instructions: 1 p.o. 3 times daily x3 days, 1 p.o. twice daily x2 days, 1 p.o. daily x2 days promethazine 25 mg tablet 25 mg PO Q6H PRN (Reason: nausea and vomiting) Qty: 20 0RF phenazopyridine [Pyridium] 200 mg tablet 200 mg PO Q8H Qty: 6 0RF tramadol 50 mg tablet 50 mg PO Q8H PRN (Reason: pain) Qty: 7 0RF Discharge Orders: Discharge ED (Routine); Ordered 05/29/25 Ordered By: Garret Finch Referrals: Tommy Villalobos, MEDICAL CODER [Primary Care Provider, Nurse Practitioner] Discharge Diet: Clear Liquid Discharge Activity: Increase activity as tolerated Patient Instructions: Abdominal Pain (ED), Opioid Safety, Pain Management, Patient Portal & Vielka Instructions Activity Restrictions/Additional Instructions: Thank you for choosing [facility] for your healthcare needs today. It is very important that you follow up as instructed or that you return to the Emergency Department should you have concerns or if your condition changes or worsens in any way. You were seen in the emergency room with complaints of abdominal pain. Your laboratory tests that were completed showed a normal white count, he did have a mild anemia. Liver functions did not show clinically significant abnormalities although there is a slight elevation in your alkaline phosphatase. We had recommended a CT of your abdomen which you declined to have done urine did show a bladder infection will treat you with an antibiotic for this. If you have worsening symptoms you are welcome return to the emergency room to complete the evaluation. Recommend a clear liquid diet also recommend use promethazine previously prescribed for nausea and vomiting. Print Language: Korean Coding Level of Care Code ED Systems Test Analyst for Joey Gay
[2025-05-29 09:03] LABS: Hematocrit 36.4 % (36-47); Hemoglobin 11.00 g/dL (11.27-16.99); Mean Corpuscular HGB Conc 30.2 g/dL (30-55); Mean Corpuscular Hemoglobin 26.5 pg (27-33); Mean Corpuscular Volume 87.7 fl (85-98); Nucleated Red Blood Cells % 0 %; Platelet Count 257 10^3/cmm (157-399); Red Blood Count 4.15 10^6/uL (3.85-5.65); White Blood Count 10.49 10^3/uL (3.29-11.43)
[2025-05-29 09:05] LABS: Glucose Urine UA Negative (Normal); Nitrate Urine Positive (Negative)
[2025-05-29 09:10] LABS: Add Urine Microscopic? YES
[2025-05-29 09:19] LABS: Specific Gravity, Urine 1.031 (1.005-1.030)
[2025-05-29 09:25] LABS: Alanine Aminotransferase 10 U/L (0-33); Albumin Level 4.0 g/dL (3.5-5.2); Alkaline Phosphatase 125 U/L (35-105); Anion Gap 17.2 (5-19); Aspartate Amino Transferase 28 U/L (0-32); Blood Urea Nitrogen 16 mg/dL (6-20); Calcium 9.3 mg/dL (8.5-10.5); Carbon Dioxide 25 mmol/L (22-29); Chloride 97 mmol/L (98-107); Globulin 3.3 g/dL (1.3-4.6); Glucose 97 mg/dL (65-115); Lipase 32 U/L (13-60); Osmolality Calculated 283 mOsm/kg (285-295); Potassium 3.2 mmol/L (3.5-5.1); Sodium 136 mmol/L (136-145); Total Protein 7.3 g/dL (6.6-8.7)
[2025-05-29 09:27] LABS: HCG, Serum Qual Negative (Negative)
--- NOTE | 2025-05-29 09:52 | PC.NURSE ---
pt refusing to wear pulse ox and bp cuff. pt educated on the need for monitoring vital signs, pt still refused.
== END 2025-05-29 10:07 | disposition home or self-care (01) ==
PROVIDERS: Emergency Provider Family Medicine; PCP Nurse Practitioner
DX: R10.9 Unspecified abdominal pain (principal); R11.2 Nausea with vomiting, unspecified; N30.90 Cystitis, unspecified without hematuria; Z87.891 Personal history of nicotine dependence
CPT/HCPCS: 36415; 71045; 80053; 81001; 83690; 84703; 85025; 87077; 87086; 87186; 99284

== ENCOUNTER → 2025-06-11 09:22 | Outpatient (BNVA) | payer MEDICAID, SELFPAY | PROVIDERS: PCP Nurse Practitioner; Visit Provider Specialist | DX: G57.31 Lesion of lateral popliteal nerve, right lower limb (principal) | CPT/HCPCS: 95910 ==

== ENCOUNTER 2025-06-12 10:22 | Emergency (ER) | payer MEDICAID, SELFPAY ==
[2025-06-12 10:27] VITALS: BP 124/76; PULSE 92; RESP 16; TEMP 36.6; O2SAT 99; BMI 30.2
--- NOTE | 2025-06-12 10:34 | CT_ITS ---
WS: [id number] CT ABDOMEN AND PELVIS WITH CONTRAST HISTORY: abd pain, generalized pain and vomiting. TECHNIQUE: Imaging performed of the abdomen and pelvis with IV contrast. Single phase imaging of the abdomen. Coronal and sagittal reformats are submitted. All CT scans at [facility] use at least one of these dose optimization techniques: automated exposure control; mA and/or kV adjustment per patient size (includes targeted exams where dose is matched to clinical indication); or iterative reconstruction. IV CONTRAST: Omnipaque 350; 100 mL IV. Oral contrast: No DLP: 673.29 mGy.cm COMPARISON: 08/12/2024 Lower thorax: Lung bases are clear. Heart is normal size. No hiatal hernia. Liver/biliary system: Normal size liver. Focal fatty sparing along the falciform ligament. No intrahepatic duct dilatation. No mass. Gallbladder: Status post cholecystectomy. Pancreas: Normal size pancreas and pancreatic duct. No adjacent inflammation. Spleen: Normal size spleen with several granulomata. Adrenal glands: Normal. Right kidney: Mild cortical thinning and atrophy. No obstruction. Left kidney: Normal. Aorta: Mild atherosclerosis with no aneurysm. Small caliber celiac axis, similar to the prior study of 08/12/2024. Lymphadenopathy: None. Free fluid: None. GI tract: Stomach is not distended. No small bowel obstruction. No colon obstruction. Normal appendix. Mild diverticular disease without acute diverticulitis. Abdominal wall: Unremarkable abdominal wall. No hernia. Pelvis: No free fluid or adenopathy within the pelvis. Uterus is midline. No adnexal masses. Bones: Prior posterior lumbar fusion from L4-S1. Interbody spacers at L4-5 and L5-S1. Partial posterior displacement of the L4-5 interbody spacer extends towards the thecal sac. CT/CT abdomen pelvis w con* [id number] IMPRESSION: 1. No acute abdominal or pelvic abnormalities. 2. No GI tract obstruction. No colitis. 3. Normal appendix. 4. No ascites or adenopathy. 5. Prior cholecystectomy.
--- NOTE | 2025-06-12 10:51 | W.ED.NAVMDI ---
HPI - Nausea/Vomiting/Diarrhea General: Chief complaint: Nausea/Vomiting/Diarrhea Stated complaint: N/V couple weeks Time Seen by Provider: 06/12/25 10:32 History of Present Illness: 39-year-old female presents emergency room with nausea vomiting. She was seen previously had a cystitis she still complaining of basically lower pelvic pain. She is not having any dysuria urgency or frequency no hematemesis or coffee-ground emesis. She had been seen by her primary care doctor and is scheduled to see GI for endoscopy. She is not taking any PPIs or H2 blockers at the time. Associated symtoms: Denies chest pain or dysuria Related Data Home Medications ?Medication ?Instructions ?Recorded ?Confirmed ropinirole 0.25 mg tablet 0.25 mg PO TID 03/17/25 06/11/25 Previous Rx's ?Medication ?Instructions ?Recorded ibuprofen 600 mg tablet 600 mg PO BID #60 tabs 02/03/25 prednisone 20 mg tablet 20 mg PO TID #15 tabs 03/17/25 phenazopyridine 200 mg tablet 200 mg PO Q8H 6 doses #6 tabs 04/21/25 (Pyridium) promethazine 25 mg tablet 25 mg PO Q6H PRN nausea and 04/21/25 vomiting #20 tabs tramadol 50 mg tablet 50 mg PO Q8H PRN pain #7 tabs 04/26/25 ciprofloxacin HCl 500 mg tablet 500 mg PO BID #14 tabs 06/12/25 ondansetron HCl 4 mg tablet 4 mg PO Q6H PRN nausea and 06/12/25 vomiting #20 tabs pantoprazole 40 mg tablet,delayed 40 mg PO BID #40 tabs 06/12/25 release (Protonix) Allergies Allergy/AdvReac Type Severity Reaction Status Date / Time albuterol Allergy ALGY-Difficulty Verified 06/11/25 10:17 Breathing divalproex sodium (From Allergy Unconscious Verified 06/11/25 10:17 Depakote) Review of Systems Const: Denies: fever(s) or chills Card: Denies: chest pain Resp: Denies: dyspnea GI: Denies: abdominal pain : Denies: dysuria, urinary frequency or urinary urgency Musc: Denies: neck pain or back pain Skin/Breast: Denies: rash PFSH ED PFSH: Medical History No pertinent past medical history Social History Smoking and tobacco/nicotine status: current every day tobacco/nicotine user (1/2 pack daily) Second hand smoke exposure: No Alcohol intake: current Substance/Drug Use: current Substance/Drug use frequency: few times a week Physical Exam Const: GENERAL APPEARANCE: cooperative ORIENTATION/CONSCIOUSNESS: Yes awake, Yes oriented to person, Yes oriented to place and Yes oriented to time HENMT: COMMON NORMALS: normocephalic, atraumatic and hearing grossly normal bilaterally HEAD & SCALP: normocephalic and atraumatic Resp: COMMON NORMALS: normal respiratory effort, No retractions, No use of accessory muscles and clear to auscultation bilaterally AUSCULTATION: clear to auscultation bilaterally Cardio: COMMON NORMALS: regular rate, regular rhythm and No murmurs present (Cardio) RATE: regular rate RHYTHM: regular rhythm GI: COMMON NORMALS: Soft to palpation and No hepatosplenomegaly present AUSCULTATION: Yes normoactive bowel sounds PALPATION: Yes Soft to palpation, No Tenderness to palpation present (GI), No Guarding due to palpation present (GI) and Yes No hepatosplenomegaly present Extremity: COMMON NORMALS: normal to inspection, capillary refill normal, no clubbing, cyanosis or edema, no calf tenderness and no pedal edema Neuro: SENSORIUM/ORIENTATION: Yes oriented to person, Yes oriented to place and Yes oriented to time Skin: COMMON NORMALS: no rashes or lesions noted GENERAL SKIN EXAM: no rashes or lesions noted Course Vital Signs: Vital signs: Vital Signs Temperature 97.9 F 06/12/25 10:27 Pulse Rate 102 H 06/12/25 12:19 Respiratory Rate 16 06/12/25 10:27 Blood Pressure 125/89 06/12/25 12:19 Pulse Oximetry 99 06/12/25 12:19 Oxygen Delivery Me thod Room Air 06/12/25 10:27 MDM - Nausea/Vomiting/Diarrhea Medical Decision Making Patient still has cystitis based on previous culture started on Cipro 500 twice daily for a week. Additionally gave ondansetron to use as needed and started on pantoprazole 40 twice daily for 10 days and 40 daily. She has an appointment with GI encouraged to keep that to complete endoscopy Lab Data I reviewed the patient's lab results. 06/12/25 10:43 06/12/25 10:43 Radiology Impressions Abdomen/Pelvis CT 06/12/25 10:34 IMPRESSION: 1. No acute abdominal or pelvic abnormalities. 2. No GI tract obstruction. No colitis. 3. Normal appendix. 4. No ascites or adenopathy. 5. Prior cholecystectomy. Laboratory Results WBC 7.83 10^3/uL (3.29-11.43) 06/12/25 10:43 RBC 4.15 10^6/uL (3.85-5.65) 06/12/25 10:43 Hgb 10.90 g/dL (11.27-16.99) L 06/12/25 10:43 Hct 37.2 % (36-47) 06/12/25 10:43 MCV 89.6 fl (85-98) 06/12/25 10:43 MCH 26.3 pg (27-33) L 06/12/25 10:43 MCHC 29.3 g/dL (30-55) L 06/12/25 10:43 RDW 17.0 % (12.1-15.1) H 06/12/25 10:43 Plt Count 246 10^3/cmm (157-399) 06/12/25 10:43 MPV 10.7 fL (7.4-10.4) H 06/12/25 10:43 Neut % (Auto) 68.6 % 06/12/25 10:43 Lymph % (Auto) 21.6 % 06/12/25 10:43 [place] % (Auto) 7.5 % 06/12/25 10:43 Eos % (Auto) 1.5 % 06/12/25 10:43 Baso % (Auto) 0.5 % 06/12/25 10:43 Neut # (Auto) 5.37 10^3/uL (1.8-7.7) 06/12/25 10:43 Lymph # (Auto) 1.7 10^3/uL (0.8-4.8) 06/12/25 10:43 [place] # (Auto) 0.6 10^3/uL (0.2-0.9) 06/12/25 10:43 Eos # (Auto) 0.1 10^3/uL (0.0-0.8) 06/12/25 10:43 Baso # (Auto) 0.0 10^3/uL (0.0-0.1) 06/12/25 10:43 Nucleated RBC % (auto) 0 % 06/12/25 10:43 Nucleated RBCs # 0.0 /100WBC 06/12/25 10:43 Sodium 136 mmol/L (136-145) 06/12/25 10:43 Potassium 3.7 mmol/L (3.5-5.1) 06/12/25 10:43 Chloride 104 mmol/L (98-107) 06/12/25 10:43 Carbon Dioxide 19 mmol/L (22-29) L 06/12/25 10:43 Anion Gap 16.7 (5-19) 06/12/25 10:43 BUN 19 mg/dL (6-20) 06/12/25 10:43 Creatinine 0.7 mg/dL (0.5-0.9) 06/12/25 10:43 GFR Calculation 92.7 mL/min (90-130) 06/12/25 10:43 Glucose 110 mg/dL (65-115) 06/12/25 10:43 Calculated Osmolality 285 mOsm/kg (285-295) 06/12/25 10:43 Calcium 9.1 mg/dL (8.5-10.5) 06/12/25 10:43 Total Bilirubin 0.5 mg/dL (0.15-1.2) 06/12/25 10:43 AST 28 U/L (0-32) 06/12/25 10:43 ALT 12 U/L (0-33) 06/12/25 10:43 Alkaline Phosphatase 104 U/L (35-105) 06/12/25 10:43 Total Protein 7.2 g/dL (6.6-8.7) 06/12/25 10:43 Albumin 3.8 g/dL (3.5-5.2) 06/12/25 10:43 Globulin 3.4 g/dL (1.3-4.6) 06/12/25 10:43 Lipase 27 U/L (13-60) 06/12/25 10:43 HCG, Qual Negative (Negative) 06/12/25 10:43 Urine Color Dark yellow (Yellow) A 06/12/25 11:00 Urine Appearance Cloudy (CLEAR) A 06/12/25 11:00 Urine pH 5.0 (5-7) 06/12/25 11:00 Ur Specific [place] 1.036 (1.005-1.030) H 06/12/25 11:00 Urine Protein Trace (Negative) A 06/12/25 11:00 Urine Glucose (UA) Negative (Normal) 06/12/25 11:00 Urine Ketones Trace (Negative) 06/12/25 11:00 Urine Blood 2+ (Negative) A 06/12/25 11:00 Urine Nitrate Positive (Negative) A 06/12/25 11:00 Urine Bilirubin Negative (Negative) 06/12/25 11:00 Urine Urobilinogen 1.0 mg/dL (Negative) 06/12/25 11:00 Ur Leukocyte Esterase 2+ (Negative) A 06/12/25 11:00 Urine RBC 3-5 /hpf (0-2) 06/12/25 11:00 Urine WBC 51-100 /hpf (0-5) H 06/12/25 11:00 Ur Squamous Epith Cells 21-50 /hpf (0-5) H 06/12/25 11:00 Amorphous Sediment Not Reportable 06/12/25 11:00 Urine Bacteria 4+ /hpf (NONE) H 06/12/25 11:00 Hyaline Casts 2.46 /lpf 06/12/25 11:00 All radiology interpretation(s) finalized by discharge Discharge Plan Discharge Patient Disposition: Home Clinical Impression: Cystitis, GERD (gastroesophageal reflux disease), Nausea & vomiting Condition: Stable Prescriptions: New ondansetron HCl 4 mg tablet 4 mg PO Q6H PRN (Reason: nausea and vomiting) Qty: 20 0RF pantoprazole [Protonix] 40 mg tablet,delayed release (DR/EC) 40 mg PO BID Qty: 40 0RF Rx Instructions: 1 tablet twice a day for 10 days and 1 tablet daily ciprofloxacin HCl 500 mg tablet 500 mg PO BID Qty: 14 0RF No Action ibuprofen 600 mg tablet 600 mg PO BID Qty: 60 0RF ropinirole 0.25 mg tablet 0.25 mg PO TID prednisone 20 mg tablet 20 mg PO TID Qty: 15 0RF Rx Instructions: 1 p.o. 3 times daily x3 days, 1 p.o. twice daily x2 days, 1 p.o. daily x2 days promethazine 25 mg tablet 25 mg PO Q6H PRN (Reason: nausea and vomiting) Qty: 20 0RF phenazopyridine [Pyridium] 200 mg tablet 200 mg PO Q8H Qty: 6 0RF tramadol 50 mg tablet 50 mg PO Q8H PRN (Reason: pain) Qty: 7 0RF Discharge Orders: Discharge ED (Routine); Ordered 06/12/25 Ordered By: Garret Finch Referrals: Tommy Villalobos FNP [Primary Care Provider, Nurse Practitioner] Discharge Diet: As Directed Discharge Activity: Resume usual activity Patient Instructions: Diet for Stomach Ulcers and Gastritis (ED), GERD (Gastroesophageal Reflux Disease) (ED), Opioid Safety, Pain Management, Patient Portal & Vielka Instructions Activity Restrictions/Additional Instructions: Thank you for choosing [facility] for your healthcare needs today. It is very important that you follow up as instructed or that you return to the Emergency Department should you have concerns or if your condition changes or worsens in any way. You were seen in the emergency room with complaints of abdominal pain CT of your abdomen was negative. Urine still shows a bladder infection. Based on your previous urine culture we chose antibiotics to begin. Recommend start Cipro 500 twice daily for 7 days. You are also given pantoprazole to help with your stomach. 1 pill twice a day for 10 days and 1 pill daily. You are also given ondansetron to use as needed. Print Language: Vietnamese Coding Level of Care Code ED Lens Fabricating Machine Tender for Joey Gay
[2025-06-12 10:52] LABS: Hematocrit 37.2 % (36-47); Hemoglobin 10.90 g/dL (11.27-16.99); Mean Corpuscular HGB Conc 29.3 g/dL (30-55); Mean Corpuscular Hemoglobin 26.3 pg (27-33); Mean Corpuscular Volume 89.6 fl (85-98); Nucleated Red Blood Cells % 0 %; Platelet Count 246 10^3/cmm (157-399); Red Blood Count 4.15 10^6/uL (3.85-5.65); White Blood Count 7.83 10^3/uL (3.29-11.43)
[2025-06-12 11:04] LABS: HCG, Serum Qual Negative (Negative)
[2025-06-12 11:08] LABS: Glucose Urine UA Negative (Normal); Nitrate Urine Positive (Negative)
[2025-06-12 11:10] LABS: Alanine Aminotransferase 12 U/L (0-33); Albumin Level 3.8 g/dL (3.5-5.2); Alkaline Phosphatase 104 U/L (35-105); Anion Gap 16.7 (5-19); Aspartate Amino Transferase 28 U/L (0-32); Blood Urea Nitrogen 19 mg/dL (6-20); Calcium 9.1 mg/dL (8.5-10.5); Carbon Dioxide 19 mmol/L (22-29); Chloride 104 mmol/L (98-107); Creatinine Clr Calc Pharmacy 93.4710; Globulin 3.4 g/dL (1.3-4.6); Glucose 110 mg/dL (65-115); Lipase 27 U/L (13-60); Osmolality Calculated 285 mOsm/kg (285-295); Potassium 3.7 mmol/L (3.5-5.1); Sodium 136 mmol/L (136-145); Total Protein 7.2 g/dL (6.6-8.7)
[2025-06-12 11:10] LABS: Add Urine Microscopic? YES; Universal Test for UA Present (0)
[2025-06-12] MEDS: iohexol 350 mg/mL 500 mL Btl (per mL) IV (11:11)
[2025-06-12 11:42] LABS: Specific Gravity, Urine 1.036 (1.005-1.030); UA Slide Review UA Slide Review Perf
[2025-06-12 12:19] VITALS: BP 125/89; PULSE 102; O2SAT 99
== END 2025-06-12 12:20 | disposition home or self-care (01) ==
PROVIDERS: Physician Assistant; Emergency Provider Family Medicine; PCP Nurse Practitioner
DX: N30.90 Cystitis, unspecified without hematuria (principal); K21.9 Gastro-esophageal reflux disease without esophagitis; R11.2 Nausea with vomiting, unspecified
CPT/HCPCS: 36415; 74177; 80053; 81001; 83690; 84703; 85025; 99285